=== PATIENT | male | born 1960 | race Caucasian/White ===

== ENCOUNTER 2017-05-04 09:46 | Inpatient (IN) | payer OTHER ==
[~2017-05-04] VITALS: Ht 160 cm; Wt 76.6 kg
[2017-05-04] VITALS (19 sets, daily range): BP systolic 115–147; BP diastolic 79–92; PULSE 70–96; RESP 11–20; Ht 160 cm; Wt 76.6 kg
[~2017-05-04 09:46] MED LIST: CLOP75TA19 PO; DIAZEPAM 5 MG TAB PO SCH; DIPHENHYDRAMINE 50 MG CAP PO SCH; FAMOTIDINE 20 MG TAB PO SCH; FENO160T13 PO; HYDROCORTISONE 2.5%; LEVO88TA PO; LISI10TA2 PO; MELO-210 PO; METO-429 PO; OMEP20TA42 PO; SERT50TA6 PO; SIMV40TA3 PO; SOD CHLORIDE 0.45% 1,000 ML IV SCH
[2017-05-04] MEDS ORDERED: ATOR80TA75 PO (11:00)
[2017-05-04] MEDS ORDERED: LISI20TA11 PO (11:00)
[2017-05-04] MEDS ORDERED: ISOS30TA5 PO (11:00)
[2017-05-04] MEDS ORDERED: LEVO100T82 PO (11:01)
[2017-05-04] MEDS ORDERED: OMEP40CA6 PO (11:02)
[2017-05-04] MEDS ORDERED: OMEG1CAP2 PO (11:02)
[2017-05-04] MEDS ORDERED: GABA300C16 PO (11:03)
[2017-05-04 11:35] LABS: BASOPHILS % 0.6 % (0.0-2.0); EOSINOPHILS # 0.2 10^3/ul (0.0-0.5); EOSINOPHILS % 3.7 % (0.0-7.0); HEMATOCRIT 42.8 % (42.0-52.0); HEMOGLOBIN 13.9 g/dl (14.0-18.0); LYMPHOCYTES # 1.3 10^3/ul (0.8-2.9); LYMPHOCYTES % 27.2 % (15.0-51.0); MEAN CORPUSCULAR HGB CONC 32.5 g/dl (32.0-37.0); MEAN CORPUSCULAR VOLUME 86.1 fl (82.0-101.0); MEAN PLATELET VOLUME 11.2 fl (7.4-10.4); MONOCYTE # 0.3 10^3/ul (0.3-0.9); MONOCYTES % 5.3 % (0.0-11.0); NEUTROPHIL # 3.1 10^3/ul (1.6-7.5); NEUTROPHILS % 62.8 % (39.0-77.0); PLATELET COUNT 201 10^3/UL (140-415); RED BLOOD COUNT 4.97 10^6/ul (4.70-6.10); RED CELL DISTRIBUTION WIDTH 12.9 % (11.5-14.5); WHITE BLOOD COUNT 4.9 10^3/ul (4.8-10.8)
--- NOTE | 2017-05-04 11:51 | RADRPT ---
PROCEDURE: XR Chest. CLINICAL INDICATION: Preoperative TECHNIQUE: Single frontal view of the chest was obtained COMPARISON: CR CHEST 08/20/2012 FINDINGS: The heart and mediastinum are within normal limits. The lungs are clear. There is no pleural effusion or pneumothorax. RPTAT: AA IMPRESSION: No acute disease. .Bryce Chow MD, MD Date Time Electronically viewed and signed by .Bryce Chow MD, on 05/04/2017 11:51 .S/
[2017-05-04 11:53] LABS: INR 1.93; PARTIAL THROMBOPLASTIN TIME 29.7 Sec (25.0-35.0); PROTIME 22.2 Sec (12.2-14.2); PT RATIO 1.7
[2017-05-04 12:02] LABS: CALCIUM 9.2 mg/dl (8.4-10.2); CREATININE 0.99 mg/dl (0.61-1.24); POTASSIUM 4.8 mmol/L (3.5-5.1)
[2017-05-04] MEDS ORDERED: IODIXANOL LOCM 100 ML BTL ONE (13:25)
[2017-05-04] MEDS ORDERED: VERAPAMIL 5 MG INJ ONE (13:25)
[2017-05-04] MEDS ORDERED: MIDAZOLAM 1 MG/ML 2 ML INJ ONE (13:25)
[2017-05-04] MEDS ORDERED: FENTAnyl 50 MCG/ML VIAL ONE (13:25)
[2017-05-04] MEDS ORDERED: NITROGLYCERIN (IC) 100 MCG/ML INJ ONE (13:25)
[2017-05-04] MEDS ORDERED: LIDOCAINE 1% (MDV) 20 ML INJ ONE (13:25)
[2017-05-04 14:26] LABS: INR 2.72; PROTIME 29.2 Sec (12.2-14.2); PT RATIO 2.3
--- NOTE | 2017-05-04 14:28 | SIPON ---
Date/Time of Note Date/Time of Note DATE: 05/04/17 TIME: 14:13 Operative Report Preoperative Diagnosis 1.abnl mpi 2.cad s/p prior ptca/stent Postoperative Diagnosis 1.Obstructive cad Operation/Procedure Performed 1.C 2.LV gram Surgeon see signature line assistant producer Angineh Anesthesia: moderate sedation Estimated blood loss: minimal Transfusion Required none Specimen NA Grafts/Implants none Complications none DAYANARA SHABAZZ May 04, 2017 14:14
[2017-05-04] MEDS ORDERED: ONDANSETRON 4 MG INJ IV PRN ×2 (14:30→15:30)
[2017-05-04] MEDS ORDERED: AL HYDROX/MG HYDROX/SIMETH 30 ML CUP PO PRN (14:30)
[2017-05-04 14:31] LABS: PARTIAL THROMBOPLASTIN TIME 32.5 Sec (25.0-35.0)
--- NOTE | 2017-05-04 15:27 | HP ---
Date/Time of Note Date/Time of Note DATE: 05/04/17 TIME: 15:26 Assessment/Plan VTE Prophylaxis VTE Prophylaxis Intervention: heparin Lines/Catheters IV Catheter Type (from [facility]): Saline Lock Assessment/Plan Assessment/Plan 1. 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 Will order Factor 7 levels, INR, and PT/ PTT mixing study. Depending on results may need anything from Vit K replacement to Novoseven (2 hrs prior to LHC then every 2 hours following for 12 hours) vs Kcentra - No av bleeding appreciated at this time and will continue to monitor - Will hold off on any anticoagulation therapy at this time 2. CAD s/p stenting in 2005 - Patient underwent diagnostic cath this am with Dr. Kim and found multivessel disease - Cardiology on board and appreciate assistance - Will need PCI with stenting. Currently on the schedule for Tuesday - Will eventually need CABG due to multivessel disease 3. Hypothyroidism - TSH ordered - continue home dose of levothyroxine for now 4. Diet - Heart healthy 5. DVT ppx - SCD 6. GI ppx - PPI 7. Code Status - Full code 8. Disposition - Admit to telemetry for close monitoring HPI/ROS Admit Date/Time Admit Date/Time 05/04/17 Hx of Present Illness 56 yo M with PMH CAD and hypothyroidism was sent to Dr. Kim office for preoperative clearance for colonoscopy given past history of CAD with stenting in 2005. Patient was seen this am and INR was 1.[address] Kim proceeded with diagnostic catheterization. Patient was found to have diffuse multivessel disease with needs for CABG in the future. Patients repeat lab work showed increase of INR to 2.7 and PCI was aborted. Official research laboratory specialist was used to communicate with patient in [facility], however, patient was unclear about his past history. He was aware that he has an abnormality of his blood but unsure what kind. After discussion with Dr. Kim, patient has factor VII deficiency and was supposed to have CABG in the past but due to coagulopathy was never performed. Patient is currently on the schedule for left heart catheterization if INR improves with plans for stenting. Patient denies any chest pain, palpitations, shortness of breath, nausea, vomiting, or abdominal issues. ROS All 12 systems were reviewed and pertinent positives as per HPI. All others reviewed and are negative. Constitutional: no complaints, No fatigue, No febrile, No nausea Eyes: no complaints ENT: no complaints Respiratory: No cough, No shortness of breath, No sputum, No wheezing Cardiovascular: No chest pain, No edema, No lightheadedness, No orthopenea, No palpitations Gastrointestinal: No blood, No constipation, No diarrhea, No nausea, No passing stool Genitourinary: no complaints Musculoskeletal: no complaints Skin: no complaints Neurologic: no complaints Endocrine: no complaints Lymphatic: no complaints Psychological: no complaints Immunologic: no complaints PMH/Family/Social Past Medical History Medical History: coronary artery disease, hypothyroid Past Surgical History Past Surgical Hx: no surgical history Family History Significant Family History: no pertinent family hx Social History Alcohol Use: none Smoking Status: Former smoker Drug Use: none Exam/Review of Systems Vital Signs Vitals Vital Signs Date Time Temp Pulse Resp B/P Pulse Ox O2 Delivery O2 Flow Rate FiO2 05/04/17 11:37 98.5 89 20 134/84 99 Room Air Exam Constitutional: alert, oriented, well developed, No distress Psych: nl mood/affect, no complaints Head: atraumatic, normocephalic Eyes: EOMI, PERRL, nl sclera ENMT: nl external ears & nose, nl lips & teeth Neck: non-tender, supple Respiratory: clear to auscultation, No crackles/rales, No diminished breath sounds Cardiovascular: regular rate and rhythm, No murmurs/extra sounds, No systolic murmur Gastrointestinal: bowel sounds, non-tender, soft, No distended, No rebound or guarding Musculoskeletal: nl extremities to inspection Extremities: normal pulses, No clubbing, No cyanosis, No edema, No pitting pedal edema Neurological: MAGAZINE KEEPER II-XII intact, nl mental status, nl speech Skin: nl turgor Lymph: nl lymph nodes Labs Result Diagram: 05/04/17 1115 05/04/17 1115 Medications Medications Current Medications Sodium Chloride (1/2 NS) 1,000 ml @ 20 mls/hr Q24H IV ; Start 05/04/17 at 07: 00; Stop 05/06/17 at 08:59 Acetaminophen (Tylenol Tab) 650 mg Q4H PRN PO NON-CARDIAC PAIN LEVEL (1-3); Start 05/04/17 at 14:30 Al Hydrox/Mg Hydrox/Simethicone (Mag-Al Plus) 30 ml Q4H PRN PO GASTROINTESTINAL UPSET; Start 05/04/17 at 14:30 Ondansetron HCl (Zofran Inj) 4 mg Q4H PRN IV NAUSEA AND/OR VOMITING; Start at 14:30 Procedures Procedures Diagnostic cardiac catheterization TIERRA MURILLO MD May 04, 2017 15:27
[2017-05-04] MEDS ORDERED: morphine 2 MG INJ IV PRN (15:30)
[2017-05-04] MEDS ORDERED: NACL 0.9% 3 ML SYG IV SCH (15:30)
[2017-05-04] MEDS ORDERED: ACETAMINOPHEN 325 MG TAB PO PRN (15:30)
[2017-05-04] MEDS ORDERED: MAGNESIUM HYDROXIDE 30ML CUP PO PRN (15:30)
[2017-05-04] MEDS ORDERED: NITROGLYCERIN (SL) 0.4 MG TAB SL PRN (15:30)
[2017-05-04] MEDS ORDERED: DOCUSATE SODIUM 100 MG CAP PO PRN (15:30)
[2017-05-04 17:44] LABS: ALBUMIN 3.8 g/dl (3.3-4.9); BILIRUBIN,INDIRECT 0.6 mg/dl (0-1.1); BILIRUBIN,TOTAL 0.6 mg/dl (0.2-1.3); TOTAL PROTEIN 6.7 g/dl (6.1-8.1)
[2017-05-04] MEDS: FISH OIL 1,000 MG CAP PO SCH (21:12)
[2017-05-04] MEDS: GABAPENTIN 300 MG CAP PO SCH (21:13)
[2017-05-04] MEDS: ATORVASTATIN 80 MG TAB PO SCH (21:13)
[2017-05-04] MEDS: ACETAMINOPHEN 325 MG TAB PO PRN (21:16)
[2017-05-04 21:24] LABS: PROTIME 23.3 Sec (12.2-14.2)
[2017-05-04 21:25] LABS: 50/50 PROTIME 1 HOUR 13.5 Sec; 50/50 PROTIME CONCLUSION CORRECTED; 50/50 PT IMMED 13.9 Sec
[2017-05-04 21:29] LABS: 50/50 PROTIME 2 HOUR 14.3 Sec
[2017-05-05] VITALS (12 sets, daily range): BP systolic 91–137; BP diastolic 50–77; PULSE 66–80; RESP 18–77
--- NOTE | 2017-05-05 02:23 | CARRPT ---
DATE OF PROCEDURE: 05/04/2017 TYPE OF PROCEDURE: 1. Left heart catheterization. 2. Coronary angiography. 3. Left ventriculogram. ATTENDING PHYSICIAN: Dr. Dayanara Kim INDICATION: Dyspnea on exertion, chest pain, positive stress test findings in a preoperative patien t. TYPE OF ANESTHESIA: Conscious and local. BRIEF HISTORY AND HOSPITAL COURSE: Mr. Malloy is a 56-year-old male with history of hypertension, dyslipidemia and coagulopathy, who presented preoperatively for colonoscopy and was found to have p ositive stress test findings with associated symptoms of chest pain and shortness of breath. The pa mil has been referred today in order to assess for the possibility of significant obstructive xiomara nary artery disease lending to symptoms of chest pain, shortness of breath and positive stress test findings. DESCRIPTION OF PROCEDURE: After informed consent was obtained, the patient was brought to [facility] cardiac catheterization lab where his right radial artery was prepped and draped in usual sterile fashion. Lidocaine 2% was infiltrated in right radial area in order to receive ad equate local anesthesia. Using the modified Seldinger technique, the radial artery was cannulated a nd a 6-Thai arterial sheath was placed. A 6-Thai JL3 catheter was used to cannulate the left ma in coronary ostium. With contrast injection, multiple views of the left coronary arterial system we re obtained. JL3 was removed over a guidewire and a JR4 was used to cannulate the right coronary ar terial ostium. With contrast injection, multiple views of the right coronary arterial system obtain ed. JR4 was removed over a guidewire and a 6-Thai pigtail was passed into aorta, across the aorti c valve into left ventricle. Left end-diastolic pressure was measured. A power injector with 20 mL of contrast was undertaken. The pigtail catheter was then pulled back across the aortic valve to a ssess for significant gradient, which there was not and removed. Subsequently, the patient's sheath was removed and TR band was applied. This completed procedure. No noted complications. FINDINGS: CORONARY ANGIOGRAPHY: LAD proximally is a 3 mm vessel and has a 70% proximal LAD stenosis just begi nning at the diagonal. The patient's diagonal has a stent in it which is subtotally occluded and pedroza s JUAN CARLOS 1 to 2 flow throughout it. The remainder of the LAD is free of significant focal stenoses un til it gets down to the apex, and at the apex there are tandem stenoses of approximately 90%. The c ircumflex proximally is a 3 mm vessel and the circumflex continuation AV groove is free of significa nt focal stenoses, it bifurcates with an OM. The OM has a long stent in it with in-stent restenosis felt to have approximately 70% to 80% in its proximal portion and just before the takeoff. The pat ient's right coronary artery proximally is a 3 mm vessel and shortly after its takeoff, becomes 100% occluded and can be seen to faintly fill distally from [id number] collateral circulation, as we ll as [id number] collateral circulation, the distal right coronary artery bifurcation. LEFT VENTRICULOGRAM: Revealed a left ventricular ejection fraction of 55% to 60%. Left ventricular end diastolic pressure of 14 pre-LV gram, 16 post-LV gram. No significant aortic stenosis by gradi ent. TOTAL FLUOROSCOPY TIME: 12.5 minutes. TOTAL CONTRAST: 60 mL. IMPRESSION: 1. Multivessel obstructive coronary artery disease involving high-grade subtotal occlusions of the patient's diagonal and high-grade stenoses within the patient's left anterior descending and obtuse marginal, as well occluded right coronary, the collateral flow. 2. Preserved left ventricular systolic function. 3. No significant aortic stenosis by gradient. 4. Coagulopathy. RECOMMENDATIONS: 1. At this time, patient has coagulopathy which will need to be corrected before any type of surgic al or percutaneous coronary intervention can be undertaken. 2. Given the patient's high-grade stenoses and subtotal occlusion, the patient will be admitted to the telemetry floor for ongoing observation and evaluation. 3. Patient should be considered for coronary artery bypass graft surgery versus multivessel PTCA an d stent placement. Dictated By: DAYANARA GONSALEZ/LIANNE Conf#: [id number] DID#: [id number] CC: TIERRA MURILLO; DEMETRA BYRD MD;*End*
[2017-05-05] MEDS: PANTOPRAZOLE (EC) 40 MG TAB PO SCH (06:00)
[2017-05-05] MEDS: LEVOTHYROXINE 100 MCG TAB PO SCH (07:15)
[2017-05-05 07:46] LABS: BASOPHILS % 0.6 % (0.0-2.0); EOSINOPHILS # 0.3 10^3/ul (0.0-0.5); EOSINOPHILS % 3.7 % (0.0-7.0); HEMATOCRIT 42.8 % (42.0-52.0); HEMOGLOBIN 13.6 g/dl (14.0-18.0); LYMPHOCYTES # 1.8 10^3/ul (0.8-2.9); LYMPHOCYTES % 25.4 % (15.0-51.0); MEAN CORPUSCULAR HEMOGLOBIN 27.8 pg (29.0-33.0); MEAN CORPUSCULAR HGB CONC 31.8 g/dl (32.0-37.0); MEAN CORPUSCULAR VOLUME 87.3 fl (82.0-101.0); MEAN PLATELET VOLUME 11.2 fl (7.4-10.4); MONOCYTE # 0.5 10^3/ul (0.3-0.9); NEUTROPHIL # 4.5 10^3/ul (1.6-7.5); PLATELET COUNT 205 10^3/UL (140-415); RED CELL DISTRIBUTION WIDTH 13.3 % (11.5-14.5); WHITE BLOOD COUNT 7.1 10^3/ul (4.8-10.8)
[2017-05-05 08:09] LABS: INR 1.99; PROTIME 22.8 Sec (12.2-14.2); PT RATIO 1.8
[2017-05-05 08:22] LABS: ALBUMIN 3.7 g/dl (3.3-4.9); ALBUMIN/GLOBULIN RATIO 1.12; BILIRUBIN,INDIRECT 0.6 mg/dl (0-1.1); BILIRUBIN,TOTAL 0.6 mg/dl (0.2-1.3); CALCIUM 9.5 mg/dl (8.4-10.2); CREATININE 1.01 mg/dl (0.61-1.24); MAGNESIUM 1.9 mg/dl (1.7-2.5); POTASSIUM 4.9 mmol/L (3.5-5.1)
[2017-05-05] MEDS: FISH OIL 1,000 MG CAP PO SCH ×2 (08:22→21:55)
[2017-05-05] MEDS: ISOSORBIDE MONONITRATE(SR)30 MG TAB PO SCH (08:24)
[2017-05-05] MEDS: GABAPENTIN 300 MG CAP PO SCH ×2 (08:24→21:55)
[2017-05-05] MEDS: CLOPIDOGREL 75 MG TAB PO SCH (08:25)
[2017-05-05 08:42] LABS: THYROID STIMULATING HORMONE 2.87 MIU/L (0.465-4.680)
[2017-05-05] MEDS ORDERED: METOPROLOL 50 MG TAB PO SCH (09:00)
[2017-05-05] MEDS ORDERED: LISINOPRIL 20 MG TAB PO SCH (09:00)
[2017-05-05] MEDS ORDERED: NON-FORMULARY/PATIENT OWN MED (Omeprazole* 40 MG) PO SCH (09:00)
--- NOTE | 2017-05-05 13:30 | PN ---
Date/Time of Note Date/Time of Note DATE: 05/05/17 TIME: 13:25 Assessment/Plan VTE Prophylaxis VTE Prophylaxis Intervention: contraindicated Lines/Catheters IV Catheter Type (from Nrs): Saline Lock Urinary Cath still in place: No Assessment/Plan Assessment/Plan 1. 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 CAD s/p stenting in 2005 - Found to have multivessel disease during diagnostic catheterization yesterday - Cardiology on board and appreciate assistance - Will need PCI with stenting. Currently on the schedule for Tuesday - Will eventually need CABG due to multivessel disease 3. Hypothyroidism - TSH within nl limits - continue home dose of levothyroxine for now 4. Disposition - Cardiac cath planned for tmrw am. Keep NPO after midnight Subjective 24 Hr Interval Summary Free Text/Dictation Patient doing well and denies any new complaints or acute overnight events. Family at bedside and all questions were answered. Plans for cardiac cath in the am. Exam/Review of Systems Vital Signs Vitals Vital Signs Date Time Temp Pulse Resp B/P Pulse Ox O2 Delivery O2 Flow Rate FiO2 05/05/17 12:25 67 05/05/17 11:56 98.1 18 91/50 97 05/04/17 18:58 Room Air Intake and Output 05/04/17 05/04/17 05/05/17 15:00 23:00 07:00 Intake Total 130 ml 280 ml 120 ml Output Total 500 ml Balance 130 ml -220 ml 120 ml Exam Constitutional: alert, oriented, well developed, No distress Head: atraumatic, normocephalic Eyes: EOMI, PERRL, nl sclera Neck: non-tender, supple Respiratory: clear to auscultation, No crackles/rales, No diminished breath sounds Cardiovascular: regular rate and rhythm, No murmurs/extra sounds, No systolic murmur Gastrointestinal: bowel sounds, non-tender, soft, No distended, No rebound or guarding Musculoskeletal: nl extremities to inspection Extremities: normal pulses, No clubbing, No cyanosis, No edema, No pitting pedal edema Neurological: LINER CHECKER II-XII intact, nl mental status, nl speech Skin: nl turgor Results Result Diagram: 05/05/17 0620 05/05/17 0620 Results 24 hrs Laboratory Tests Test 05/04/17 13:55 05/04/17 16:26 05/04/17 17:59 05/05/17 06:20 Prothrombin Time 29.2 #H 23.3 #H 22.8 H Prothrombin Time Ratio 2.3 1.8 INR International Normalized Ratio 2.72 1.99 Activated Partial Thromboplast Time 32.5 Total Bilirubin 0.6 0.6 Direct Bilirubin 0.00 0.00 Indirect Bilirubin 0.6 0.6 Aspartate Amino Transf (AST/SGOT) 25 32 Alanine Aminotransferase (ALT/SGPT) 64 62 Alkaline Phosphatase 68 70 Total Protein 6.7 7.0 Albumin 3.8 3.7 Mix PT Normal Plasma 1 Hour 13.5 Mix PT Normal Plasma 2 Hour 14.3 Mix PT Patient Plasma Immediate 13.9 PT Mixing Studies Interpretation CORRECTED White Blood Count 7.1 # Red Blood Count 4.90 Hemoglobin 13.6 L Hematocrit 42.8 Mean Corpuscular Volume 87.3 Mean Corpuscular Hemoglobin 27.8 L Mean Corpuscular Hemoglobin Concent 31.8 L Red Cell Distribution Width 13.3 Platelet Count 205 Mean Platelet Volume 11.2 H Neutrophils % 63.0 Lymphocytes % 25.4 Monocytes % 7.0 Eosinophils % 3.7 Basophils % 0.6 Nucleated Red Blood Cells % 0.0 Neutrophils # 4.5 Lymphocytes # 1.8 Monocytes # 0.5 Eosinophils # 0.3 Basophils # 0.0 Nucleated Red Blood Cells # 0.0 Sodium Level 142 Potassium Level 4.9 Chloride Level 106 Carbon Dioxide Level 29 Anion Gap 12 Blood Urea Nitrogen 20 Creatinine 1.01 Glucose Level 93 Hemoglobin A1c 5.4 Calcium Level 9.5 Magnesium Level 1.9 Globulin 3.30 H Albumin/Globulin Ratio 1.12 Thyroid Stimulating Hormone (TSH) 2.870 Medications Medications Current Medications Acetaminophen (Tylenol Tab) 650 mg Q4H PRN PO NON-CARDIAC PAIN LEVEL (1-3) Last administered on 05/04/17t 21:16; Admin Dose 650 MG; Start 05/04/17 at 14: 30 Al Hydrox/Mg Hydrox/Simethicone (Mag-Al Plus) 30 ml Q4H PRN PO GASTROINTESTINAL UPSET; Start 05/04/17 at 14:30 Ondansetron HCl (Zofran Inj) 4 mg Q4H PRN IV NAUSEA AND/OR VOMITING; Start at 14:30 Atorvastatin Calcium (Lipitor) 80 mg QHS PO Last administered on 05/04/17 21: 13; Admin Dose 80 MG; Start 05/04/17 at 21:00 Clopidogrel Bisulfate (plaVIX) 75 mg DAILY PO Last administered on 05/05/17 08:25; Admin Dose 75 MG; Start 05/05/17 at 09:00 Gabapentin (Neurontin) 300 mg BID PO Last administered on 05/05/17 08:24; Admin Dose 300 MG; Start 05/04/17 at 21:00 Isosorbide Mononitrate (Imdur) 30 mg DAILY PO Last administered on 05/05/17 08:24; Admin Dose 30 MG; Start 05/05/17 at 09:00 Lisinopril (Zestril) 20 mg DAILY PO Last administered on 05/05/17 08:25; Admin Dose 20 MG; Start 05/05/17 at 09:00 Metoprolol Tartrate (Lopressor) 50 mg DAILY PO Last administered on 05/05/17 08:24; Admin Dose 50 MG; Start 05/05/17 at 09:00 Fish Oil (Fish Oil) 2,000 mg BID PO Last administered on 05/05/17 08:22; Admin Dose 2,000 MG; Start 05/04/17 at 21:00 Ondansetron HCl (Zofran Inj) 4 mg Q6H PRN IV NAUSEA AND/OR VOMITING; Start at 15:30 Nitroglycerin (Nitroglycerin (Sl Tab) 0.4 Mg) 1 tab Q5M PRN SL CHEST PAIN; Start 05/04/17 at 15:30 Morphine Sulfate (morphine) 2 mg Q4H PRN IV PAIN LEVEL 7-10; Start 05/04/17 at 15:30 Docusate Sodium (Colace) 100 mg Q12H PRN PO CONSTIPATION; Start 05/04/17 at 15 :30 Magnesium Hydroxide (Milk Of Mag) 30 ml DAILY PRN PO CONSTIPATION; Start 05/04 at 15:30 Pantoprazole (Protonix Tab) 40 mg DAILY@06 PO Last administered on 05/05/17t 06:00; Admin Dose 40 MG; Start 05/05/17 at 06:00 TIERRA MURILLO MD May 05, 2017 13:30
--- NOTE | 2017-05-05 13:40 | CONS ---
Date/Time of Note Date/Time of Note DATE: 05/05/17 TIME: 13:33 Assessment/Plan Assessment/Plan Chief Complaint/Hosp Course IMP: 1.cad-mutivessel obstructive by [facility] 05/04 2.UNstable angina-secondary to cad as above 3. Coagulopathy-factor V11 def?: 4.HTN-borderline hotn today after receiving baseline anti-hypertensives 5.HL Recc: -Tele -serial ecg's -Change BB to BID dosing -Continue zestril with slight decrease -Greatly appreciate Heme/Dr Puentes input with plans to give coagulation factor 1 hour prior to surgery or cath with correction already shown by mixing studies -CT surgical eval today for possible CABG due to diffuse nature of cad versus multivessel PTCA(If done will likley be tomorrow AM 10:30) Problems: Consultation Date/Type/Reason Admit Date/Time May 04, 2017 at 15:44 Initial Consult Date 05/04/2017 Type of Consultation: Cardiology Reason for Consultation cad/angina Referring Provider: TIERRA MURILLO MD Exam/Review of Systems Vital Signs Vitals Vital Signs Date Time Temp Pulse Resp B/P Pulse Ox O2 Delivery O2 Flow Rate FiO2 05/05/17 12:25 67 05/05/17 11:56 98.1 18 91/50 97 05/04/17 18:58 Room Air Intake and Output 05/04/17 05/04/17 05/05/17 15:00 23:00 07:00 Intake Total 130 ml 280 ml 120 ml Output Total 500 ml Balance 130 ml -220 ml 120 ml Exam Review of Systems: CONSTITUTIONAL: No fevers, chills. PULMONARY: No sob CARDIOVASCULAR: No chest pain/palpitations GASTROINTESTINAL: No nausea/vomiting. GENITOURINARY: No hematuria/dysuria. MUSCULOSKELETAL: No myagias/arthalgias. PSYCHIATRIC: The patient denies depression. NEUROLOGIC: No weakness Constitutional: alert, oriented Psych: no complaints Head: normocephalic ENMT: mucosa pink and moist Neck: jvd (9 cm water), supple Respiratory: clear to auscultation Cardiovascular: regular rate and rhythm Gastrointestinal: non-tender, soft Musculoskeletal: muscle tone (normal) Extremities: edema (none) Neurological: other (No focal deficits) Results Result Diagram: 05/05/17 0620 05/05/17 0620 Results 24 hrs Laboratory Tests Test 05/04/17 13:55 05/04/17 16:26 05/04/17 17:59 05/05/17 06:20 Prothrombin Time 29.2 #H 23.3 #H 22.8 H Prothrombin Time Ratio 2.3 1.8 INR International Normalized Ratio 2.72 1.99 Activated Partial Thromboplast Time 32.5 Total Bilirubin 0.6 0.6 Direct Bilirubin 0.00 0.00 Indirect Bilirubin 0.6 0.6 Aspartate Amino Transf (AST/SGOT) 25 32 Alanine Aminotransferase (ALT/SGPT) 64 62 Alkaline Phosphatase 68 70 Total Protein 6.7 7.0 Albumin 3.8 3.7 Mix PT Normal Plasma 1 Hour 13.5 Mix PT Normal Plasma 2 Hour 14.3 Mix PT Patient Plasma Immediate 13.9 PT Mixing Studies Interpretation CORRECTED White Blood Count 7.1 # Red Blood Count 4.90 Hemoglobin 13.6 L Hematocrit 42.8 Mean Corpuscular Volume 87.3 Mean Corpuscular Hemoglobin 27.8 L Mean Corpuscular Hemoglobin Concent 31.8 L Red Cell Distribution Width 13.3 Platelet Count 205 Mean Platelet Volume 11.2 H Neutrophils % 63.0 Lymphocytes % 25.4 Monocytes % 7.0 Eosinophils % 3.7 Basophils % 0.6 Nucleated Red Blood Cells % 0.0 Neutrophils # 4.5 Lymphocytes # 1.8 Monocytes # 0.5 Eosinophils # 0.3 Basophils # 0.0 Nucleated Red Blood Cells # 0.0 Sodium Level 142 Potassium Level 4.9 Chloride Level 106 Carbon Dioxide Level 29 Anion Gap 12 Blood Urea Nitrogen 20 Creatinine 1.01 Glucose Level 93 Hemoglobin A1c 5.4 Calcium Level 9.5 Magnesium Level 1.9 Globulin 3.30 H Albumin/Globulin Ratio 1.12 Thyroid Stimulating Hormone (TSH) 2.870 Medications Medications Current Medications Acetaminophen (Tylenol Tab) 650 mg Q4H PRN PO NON-CARDIAC PAIN LEVEL (1-3) Last administered on 05/04/17t 21:16; Admin Dose 650 MG; Start 05/04/17 at 14: 30 Al Hydrox/Mg Hydrox/Simethicone (Mag-Al Plus) 30 ml Q4H PRN PO GASTROINTESTINAL UPSET; Start 05/04/17 at 14:30 Ondansetron HCl (Zofran Inj) 4 mg Q4H PRN IV NAUSEA AND/OR VOMITING; Start at 14:30 Atorvastatin Calcium (Lipitor) 80 mg QHS PO Last administered on 05/04/17 21: 13; Admin Dose 80 MG; Start 05/04/17 at 21:00 Clopidogrel Bisulfate (plaVIX) 75 mg DAILY PO Last administered on 05/05/17 08:25; Admin Dose 75 MG; Start 05/05/17 at 09:00 Gabapentin (Neurontin) 300 mg BID PO Last administered on 05/05/17 08:24; Admin Dose 300 MG; Start 05/04/17 at 21:00 Isosorbide Mononitrate (Imdur) 30 mg DAILY PO Last administered on 05/05/17 08:24; Admin Dose 30 MG; Start 05/05/17 at 09:00 Lisinopril (Zestril) 20 mg DAILY PO Last administered on 05/05/17 08:25; Admin Dose 20 MG; Start 05/05/17 at 09:00 Metoprolol Tartrate (Lopressor) 50 mg DAILY PO Last administered on 05/05/17 08:24; Admin Dose 50 MG; Start 05/05/17 at 09:00 Fish Oil (Fish Oil) 2,000 mg BID PO Last administered on 05/05/17 08:22; Admin Dose 2,000 MG; Start 05/04/17 at 21:00 Ondansetron HCl (Zofran Inj) 4 mg Q6H PRN IV NAUSEA AND/OR VOMITING; Start at 15:30 Nitroglycerin (Nitroglycerin (Sl Tab) 0.4 Mg) 1 tab Q5M PRN SL CHEST PAIN; Start 05/04/17 at 15:30 Morphine Sulfate (morphine) 2 mg Q4H PRN IV PAIN LEVEL 7-10; Start 05/04/17 at 15:30 Docusate Sodium (Colace) 100 mg Q12H PRN PO CONSTIPATION; Start 05/04/17 at 15 :30 Magnesium Hydroxide (Milk Of Mag) 30 ml DAILY PRN PO CONSTIPATION; Start 05/04 at 15:30 Pantoprazole (Protonix Tab) 40 mg DAILY@06 PO Last administered on 05/05/17 06:00; Admin Dose 40 MG; Start 05/05/17 at 06:00 DAYANARA SHABAZZ May 05, 2017 13:40
--- NOTE | 2017-05-05 18:30 | RADRPT ---
Vent Rate: 79 bpm RR Interval: 0 msec AL Interval: 152 msec QRS Duration: 90 msec QT Interval: 368 msec QTC Interval: 421 msec P-R-T [place]: 59 - 58 - 52 degrees Normal sinus rhythm Normal ECG Electronically Signed By: Bar Kim [id number]
[2017-05-05] MEDS: METOPROLOL 25 MG TAB PO SCH (20:39)
[2017-05-05] MEDS: ATORVASTATIN 80 MG TAB PO SCH (21:55)
--- NOTE | 2017-05-05 22:03 | CONS ---
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 -if there is in fact a deficiency of factor VII, pt can be given a dose of parvin 7. dose would be 15mcg/kg q 4 hours, first dose to be given immediately before surgery and to continue for 24 hours. -will attempt to speak with Dr. Hunter regarding patient's history of coagulopathy #Multivessel disease CAD -will defer to cardiology as to whether patient will need multi vessel stent placement vs CABG -continue Beta Blockade #HTN -BP ok -continue strict blood pressure control per cardiology Problems: Consultation Date/Type/Reason Admit Date/Time May 04, 2017 at 15:44 Date of Consultation: May 05, 2017 Type of Consultation: Hematology Reason for Consultation Factor 7 deficiency Referring Provider: DAYANARA KIM Hx of Present Illness 56 yo M with multiple medical problems including coronary artery disease with history of stenting in 2005. Pt has since undergone diagnostic cardiac catheterization and was found to have diffuse multivessel disease with needs for CABG in the future. During his workup patient was found to have an INR to 2.7 and PCI was aborted. Upon further history taking pt states he has a After discussion with Dr. Kim, patient has factor VII deficiency and is currently being followed by a pumping plant operator Dr. Hunter in [place]. Given his multivessel disease, pt will need open heart surgery vs multi vessel stent placement. We have been called to correct the coagulopathy prior to the surgery. Eyes: no complaints ENT: no complaints Respiratory: No cough, No shortness of breath, No sputum, No wheezing Cardiovascular: No chest pain, No edema, No lightheadedness, No orthopenea, No palpitations Gastrointestinal: No blood, No constipation, No diarrhea, No nausea, No passing stool Genitourinary: no complaints Musculoskeletal: no complaints Skin: no complaints Neurologic: no complaints Lymphatic: no complaints Psychological: no complaints Immunologic: no complaints Past Medical History Medical History: coronary artery disease, hypothyroid Past Surgical History Past Surgical Hx: no surgical history Family History Significant Family History: no pertinent family hx Social History Alcohol Use: none Smoking Status: Former smoker Drug Use: none Exam/Review of Systems Vital Signs Vitals Vital Signs Date Time Temp Pulse Resp B/P Pulse Ox O2 Delivery O2 Flow Rate FiO2 05/05/17 20:38 79 05/05/17 20:00 98.2 77 93/52 95 05/04/17 18:58 Room Air Intake and Output 05/04/17 05/04/17 05/05/17 15:00 23:00 07:00 Intake Total 130 ml 280 ml 120 ml Output Total 500 ml Balance 130 ml -220 ml 120 ml Exam Constitutional: alert, oriented Psych: no complaints Head: normocephalic Eyes: nl conjunctiva ENMT: nl external ears & nose Neck: non-tender, supple Respiratory: clear to auscultation Cardiovascular: regular rate and rhythm Gastrointestinal: soft Musculoskeletal: nl extremities to inspection, nl gait and stance Extremities: normal pulses Results Result Diagram: 05/05/17 0620 05/05/17 0620 Results 24 hrs Laboratory Tests Test 05/05/17 06:20 White Blood Count 7.1 # Red Blood Count 4.90 Hemoglobin 13.6 L Hematocrit 42.8 Mean Corpuscular Volume 87.3 Mean Corpuscular Hemoglobin 27.8 L Mean Corpuscular Hemoglobin Concent 31.8 L Red Cell Distribution Width 13.3 Platelet Count 205 Mean Platelet Volume 11.2 H Neutrophils % 63.0 Lymphocytes % 25.4 Monocytes % 7.0 Eosinophils % 3.7 Basophils % 0.6 Nucleated Red Blood Cells % 0.0 Neutrophils # 4.5 Lymphocytes # 1.8 Monocytes # 0.5 Eosinophils # 0.3 Basophils # 0.0 Nucleated Red Blood Cells # 0.0 Prothrombin Time 22.8 H Prothrombin Time Ratio 1.8 INR International Normalized Ratio 1.99 Sodium Level 142 Potassium Level 4.9 Chloride Level 106 Carbon Dioxide Level 29 Anion Gap 12 Blood Urea Nitrogen 20 Creatinine 1.01 Glucose Level 93 Hemoglobin A1c 5.4 Calcium Level 9.5 Magnesium Level 1.9 Total Bilirubin 0.6 Direct Bilirubin 0.00 Indirect Bilirubin 0.6 Aspartate Amino Transf (AST/SGOT) 32 Alanine Aminotransferase (ALT/SGPT) 62 Alkaline Phosphatase 70 Total Protein 7.0 Albumin 3.7 Globulin 3.30 H Albumin/Globulin Ratio 1.12 Thyroid Stimulating Hormone (TSH) 2.870 Medications Medications Current Medications Acetaminophen (Tylenol Tab) 650 mg Q4H PRN PO NON-CARDIAC PAIN LEVEL (1-3) Last administered on 05/04/17 21:16; Admin Dose 650 MG; Start 05/04/17 at 14: 30 Al Hydrox/Mg Hydrox/Simethicone (Mag-Al Plus) 30 ml Q4H PRN PO GASTROINTESTINAL UPSET; Start 05/04/17 at 14:30 Ondansetron HCl (Zofran Inj) 4 mg Q4H PRN IV NAUSEA AND/OR VOMITING; Start at 14:30 Atorvastatin Calcium (Lipitor) 80 mg QHS PO Last administered on 05/04/17 21: 13; Admin Dose 80 MG; Start 05/04/17 at 21:00 Clopidogrel Bisulfate (plaVIX) 75 mg DAILY PO Last administered on 05/05/17 08:25; Admin Dose 75 MG; Start 05/05/17 at 09:00 Gabapentin (Neurontin) 300 mg BID PO Last administered on 05/05/17 08:24; Admin Dose 300 MG; Start 05/04/17 at 21:00 Isosorbide Mononitrate (Imdur) 30 mg DAILY PO Last administered on 05/05/17 08:24; Admin Dose 30 MG; Start 05/05/17 at 09:00 Fish Oil (Fish Oil) 2,000 mg BID PO Last administered on 05/05/17 08:22; Admin Dose 2,000 MG; Start 05/04/17 at 21:00 Ondansetron HCl (Zofran Inj) 4 mg Q6H PRN IV NAUSEA AND/OR VOMITING; Start at 15:30 Nitroglycerin (Nitroglycerin (Sl Tab) 0.4 Mg) 1 tab Q5M PRN SL CHEST PAIN; Start 05/04/17 at 15:30 Morphine Sulfate (morphine) 2 mg Q4H PRN IV PAIN LEVEL 7-10; Start 05/04/17 at 15:30 Docusate Sodium (Colace) 100 mg Q12H PRN PO CONSTIPATION; Start 05/04/17 at 15 :30 Magnesium Hydroxide (Milk Of Mag) 30 ml DAILY PRN PO CONSTIPATION; Start 05/04 at 15:30 Pantoprazole (Protonix Tab) 40 mg DAILY@06 PO Last administered on 05/05/17 06:00; Admin Dose 40 MG; Start 05/05/17 at 06:00 Lisinopril (Zestril) 10 mg DAILY PO ; Start 05/06/17 at 09:00 Metoprolol Tartrate (Lopressor) 25 mg BID PO ; Start 05/05/17 at 21:00 KERRY WILLS M.D. May 05, 2017 21:51
[2017-05-06] VITALS (13 sets, daily range): BP systolic 95–127; BP diastolic 55–81; PULSE 68–85; RESP 18–19
[2017-05-06] MEDS: PANTOPRAZOLE (EC) 40 MG TAB PO SCH (06:00)
[2017-05-06 06:16] LABS: BASOPHILS % 0.3 % (0.0-2.0); EOSINOPHILS # 0.3 10^3/ul (0.0-0.5); EOSINOPHILS % 3.7 % (0.0-7.0); HEMATOCRIT 38.1 % (42.0-52.0); HEMOGLOBIN 12.6 g/dl (14.0-18.0); LYMPHOCYTES # 1.6 10^3/ul (0.8-2.9); LYMPHOCYTES % 22.9 % (15.0-51.0); MEAN CORPUSCULAR HEMOGLOBIN 28.7 pg (29.0-33.0); MEAN CORPUSCULAR HGB CONC 33.1 g/dl (32.0-37.0); MEAN CORPUSCULAR VOLUME 86.8 fl (82.0-101.0); MONOCYTE # 0.5 10^3/ul (0.3-0.9); MONOCYTES % 6.8 % (0.0-11.0); NEUTROPHIL # 4.7 10^3/ul (1.6-7.5); NEUTROPHILS % 65.9 % (39.0-77.0); PLATELET COUNT 197 10^3/UL (140-415); RED BLOOD COUNT 4.39 10^6/ul (4.70-6.10); WHITE BLOOD COUNT 7.1 10^3/ul (4.8-10.8)
[2017-05-06 06:45] LABS: INR 2.11; PROTIME 23.9 Sec (12.2-14.2); PT RATIO 1.9
[2017-05-06] MEDS: LEVOTHYROXINE 100 MCG TAB PO SCH ×2 (07:00→10:43)
[2017-05-06 07:10] LABS: ALBUMIN 3.5 g/dl (3.3-4.9); CALCIUM 9.1 mg/dl (8.4-10.2); CREATININE 0.99 mg/dl (0.61-1.24); MAGNESIUM 1.8 mg/dl (1.7-2.5); PHOSPHORUS 3.4 mg/dl (2.5-4.9); POTASSIUM 4.3 mmol/L (3.5-5.1)
[2017-05-06] MEDS: FISH OIL 1,000 MG CAP PO SCH ×3 (09:00→21:00)
[2017-05-06] MEDS: GABAPENTIN 300 MG CAP PO SCH ×3 (09:00→21:00)
[2017-05-06] MEDS: LISINOPRIL 10 MG TAB PO SCH (09:00)
[2017-05-06] MEDS: CLOPIDOGREL 75 MG TAB PO SCH ×2 (09:00→10:46)
[2017-05-06] MEDS: ISOSORBIDE MONONITRATE(SR)30 MG TAB PO SCH ×2 (09:00→10:46)
[2017-05-06] MEDS: METOPROLOL 25 MG TAB PO SCH ×3 (09:00→21:00)
--- NOTE | 2017-05-06 11:06 | PN ---
Date/Time of Note Date/Time of Note DATE: 05/06/17 TIME: 11:01 Assessment/Plan VTE Prophylaxis VTE Prophylaxis Intervention: contraindicated Lines/Catheters IV [facility] Urinary Cath still in place: No Assessment/Plan Assessment/Plan 1. 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 Undergoing evaluation to confirm his factor deficiency and if Factor 7 deficiency in fact present will need parvin 7. dose would be 15mcg/kg q 4 hours, first dose to be given immediately before surgery and to continue for 24 hours. - PTT Mixing study ordered yesterday which showed correction - No av bleeding appreciated at this time and will continue to monitor 2. CAD s/p stenting in 2005 - Found to have multivessel disease during diagnostic catheterization on 05/04 - Cardiology on board and recommendations appreciated. Plan is to see if patient is a surgical candidate for CABG and if not will undergo LHC on Tuesday. Awaiting recommendations from CT surgery. 3. Hypothyroidism - TSH within nl limits - continue home dose of levothyroxine for now 4. Disposition - Awaiting CT surgery assessment to determine if candidate for CABG vs LHC - Continue monitoring on telemetry Subjective 24 Hr Interval Summary Free Text/Dictation Patient still doing well but concerned about his factor 7 deficiency and undergoing procedures. Plan of Care was clarified this am with Dr. Kim and family as well as patient updated. No acute overnight events and no new complaints. Exam/Review of Systems Vital Signs Vitals Vital Signs Date Time Temp Pulse Resp B/P Pulse Ox O2 Delivery O2 Flow Rate FiO2 05/06/17 09:15 77 05/06/17 07:29 97.6 18 110/61 97 05/04/17 18:58 Room Air Intake and Output 05/05/17 05/05/17 05/06/17 15:00 23:00 07:00 Intake Total 950 ml 200 ml Balance 950 ml 200 ml Exam Constitutional: alert, oriented, well developed. No distress Head: atraumatic, normocephalic Eyes: EOMI, PERRL, nl sclera Neck: non-tender, supple Respiratory: clear to auscultation, No crackles/rales, No diminished breath sounds Cardiovascular: regular rate and rhythm, No murmurs/extra sounds, No systolic murmur Gastrointestinal: bowel sounds, non-tender, soft, No distended, No rebound or guarding Musculoskeletal: nl extremities to inspection Extremities: normal pulses, No clubbing, No cyanosis, No edema, No pitting pedal edema Neurological: INSPECTOR BALANCE BRIDGE II-XII intact, nl mental status, nl speech Skin: nl turgor Results Result Diagram: 05/06/1744 05/06/17 0544 Results 24 hrs Laboratory Tests Test 05/06/17 05:44 White Blood Count 7.1 Red Blood Count 4.39 L Hemoglobin 12.6 L Hematocrit 38.1 L Mean Corpuscular Volume 86.8 Mean Corpuscular Hemoglobin 28.7 L Mean Corpuscular Hemoglobin Concent 33.1 Red Cell Distribution Width 13.0 Platelet Count 197 Mean Platelet Volume 11.0 H Neutrophils % 65.9 Lymphocytes % 22.9 Monocytes % 6.8 Eosinophils % 3.7 Basophils % 0.3 Nucleated Red Blood Cells % 0.0 Neutrophils # 4.7 Lymphocytes # 1.6 Monocytes # 0.5 Eosinophils # 0.3 Basophils # 0.0 Nucleated Red Blood Cells # 0.0 Prothrombin Time 23.9 H Prothrombin Time Ratio 1.9 INR International Normalized Ratio 2.11 Sodium Level 141 Potassium Level 4.3 Chloride Level 105 Carbon Dioxide Level 29 Anion Gap 11 Blood Urea Nitrogen 23 H Creatinine 0.99 Glucose Level 90 Calcium Level 9.1 Phosphorus Level 3.4 Magnesium Level 1.8 Albumin 3.5 Medications Medications Current Medications Acetaminophen (Tylenol Tab) 650 mg Q4H PRN PO NON-CARDIAC PAIN LEVEL (1-3) Last administered on 05/04/17 21:16; Admin Dose 650 MG; Start 05/04/17 at 14: 30 Al Hydrox/Mg Hydrox/Simethicone (Mag-Al Plus) 30 ml Q4H PRN PO GASTROINTESTINAL UPSET; Start 05/04/17 at 14:30 Ondansetron HCl (Zofran Inj) 4 mg Q4H PRN IV NAUSEA AND/OR VOMITING; Start at 14:30 Atorvastatin Calcium (Lipitor) 80 mg QHS PO Last administered on 05/05/17 21: 55; Admin Dose 80 MG; Start 05/04/17 at 21:00 Clopidogrel Bisulfate (plaVIX) 75 mg DAILY PO Last administered on 05/06/17 10:46; Admin Dose 75 MG; Start 05/05/17 at 09:00 Gabapentin (Neurontin) 300 mg BID PO Last administered on 05/06/17 10:46; Admin Dose 300 MG; Start 05/04/17 at 21:00 Isosorbide Mononitrate (Imdur) 30 mg DAILY PO Last administered on 05/06/17 10:46; Admin Dose 30 MG; Start 05/05/17 at 09:00 Fish Oil (Fish Oil) 2,000 mg BID PO Last administered on 05/06/17 10:46; Admin Dose 2,000 MG; Start 05/04/17 at 21:00 Ondansetron HCl (Zofran Inj) 4 mg Q6H PRN IV NAUSEA AND/OR VOMITING; Start at 15:30 Nitroglycerin (Nitroglycerin (Sl Tab) 0.4 Mg) 1 tab Q5M PRN SL CHEST PAIN; Start 05/04/17 at 15:30 Morphine Sulfate (morphine) 2 mg Q4H PRN IV PAIN LEVEL 7-10; Start 05/04/17 at 15:30 Docusate Sodium (Colace) 100 mg Q12H PRN PO CONSTIPATION; Start 05/04/17 at 15 :30 Magnesium Hydroxide (Milk Of Mag) 30 ml DAILY PRN PO CONSTIPATION; Start 05/04 at 15:30 Pantoprazole (Protonix Tab) 40 mg DAILY@06 PO Last administered on 05/05/17 06:00; Admin Dose 40 MG; Start 05/05/17 at 06:00 Lisinopril (Zestril) 10 mg DAILY PO ; Start 05/06/17 at 09:00 Metoprolol Tartrate (Lopressor) 25 mg BID PO Last administered on 05/06/17 10 :47; Admin Dose 25 MG; Start 05/05/17 at 21:00 Factor VII (Pha) (Novoseven (Factor Vii)) 1 mg Q4 IV ; Start 05/09/17 at 09:00 ; Stop 05/09/17 at 17:01; Status TIERRA MARIE MD May 06, 2017 11:06
--- NOTE | 2017-05-06 15:56 | RADRPT ---
PROCEDURE: US Carotids. CLINICAL INDICATION: Preop CABG. TECHNIQUE: Multiple sonographic of the carotid arteries were obtained utilizing mitchell scale imaging . Color and Doppler imaging was performed. The images were reviewed on a PACS workstation. COMPARISON: No prior studies are available for comparison. FINDINGS: Location Right Left CCA 80 cm/sec 70 cm/sec Prox ICA 34 cm/sec 42 cm/sec Mid ICA 50 cm/sec 44 cm/sec Dist ICA 47 cm/sec 59 cm/sec ECA 40 cm/sec 57 cm/sec ICA/CCA 0.8 0.8 Antegrade flow is seen within the vertebral arteries bilaterally. No significant plaque is seen with in the carotid system bilaterally. No hemodynamically significant stenosis or occlusion is identifi ed. IMPRESSION: 1. No evidence for hemodynamically significant stenosis - validated velocity measurements with angio graphic measurements, velocity criteria are extrapolated from diameter data as defined by the Societ y of Radiologists in Ultrasound Consensus Conference Radiology 2003; 229;340-346. This study does i ndirectly reference the measurement of the distal ICA diameter as the denominator for stenosis measu rement. 2. Antegrade flow seen within the vertebral arteries bilaterally. SRU Consensus Conference Criteria for the Diagnosis of Carotid Artery Stenosis Degree of Stenosis, % ICA PSV, cm/sec Plaque Estimate, % ICA/CCA PSV Ratio Normal <125 None <2.0 <50 <125 <50 <2.0 50 69 125-230 >50 2.0-4.0 >70 but less than near occlusion >230 >50 <4.0 Near occlusion High, low, or undetectable Visible Variable Total occlusion Undetectable Visible, no detectable lumen Not applicable *Cartoid artery stenosis: mitchell-scale and Doppler US diagnosis. Society of Radiologists in Ultrasound Consensus Conference. Radiology 2003; 229: 340-346 RPTAT: JJ .Abdoul Albert MD, Date Time Electronically viewed and signed by .Abdoul Albert MD, MD on 05/06/2017 15:56 .A/
--- NOTE | 2017-05-06 15:58 | CONS ---
DATE OF ADMISSION: 05/04/2017 DATE OF CONSULTATION: REASON FOR CONSULTATION Coronary artery disease, evaluation for coronary artery bypass grafting. Thank you, Dr. Kim, for asking me to see this patient. HISTORY OF PRESENT ILLNESS: This is a 56-year-old male with a history of coronary artery disease st atus post coronary angioplasty and stent placement, admitted because of chest pain, was found to hav e 3-vessel coronary artery disease involving LAD, circumflex diagonal branch of the LAD and 100% occ lusion of the right coronary artery. Patient is currently chest pain free. PAST MEDICAL HISTORY: Significant for coagulopathy with factor VII deficiency, coronary arteries, h ypertension. PAST SURGICAL HISTORY: Coronary angiogram. ALLERGIES: NONE. SOCIAL HISTORY: No smoking, drinking or drug use. MEDICATIONS: List reviewed. PHYSICAL EXAMINATION: VITAL SIGNS: Blood pressure is 127/81, pulse is 85, respirations 19, saturations 96% on room air. CARDIOVASCULAR: Regular rate and rhythm. LUNGS: Clear. ABDOMEN: Soft. EXTREMITIES: Warm. LABORATORY VALUES: Significant for hemoglobin of 12.6, platelet count 197. INR is 2.1. IMPRESSION: 1. Coronary artery disease. 2. Coagulopathy. RECOMMENDATIONS: We will proceed with coronary artery bypass grafting after recommendations from he matology/oncology. Discussed with the patient the risks, benefits, complications, alternative thera pies explained to the patient and the family. All questions answered. Dictated By: MARYAM BYRD/NTS Conf#: [id number] DID#: [id number]
[2017-05-06] MEDS: ATORVASTATIN 80 MG TAB PO SCH (21:00)
[2017-05-07] VITALS (10 sets, daily range): BP systolic 93–117; BP diastolic 57–63; PULSE 60–84; RESP 16–18
[2017-05-07] MEDS: PANTOPRAZOLE (EC) 40 MG TAB PO SCH (06:07)
[2017-05-07] MEDS: LEVOTHYROXINE 100 MCG TAB PO SCH (06:09)
[2017-05-07 07:05] LABS: BASOPHILS % 0.6 % (0.0-2.0); EOSINOPHILS # 0.3 10^3/ul (0.0-0.5); EOSINOPHILS % 4.2 % (0.0-7.0); HEMATOCRIT 38.4 % (42.0-52.0); HEMOGLOBIN 12.5 g/dl (14.0-18.0); LYMPHOCYTES # 1.5 10^3/ul (0.8-2.9); LYMPHOCYTES % 23.3 % (15.0-51.0); MEAN CORPUSCULAR HEMOGLOBIN 28.2 pg (29.0-33.0); MEAN CORPUSCULAR HGB CONC 32.6 g/dl (32.0-37.0); MEAN CORPUSCULAR VOLUME 86.5 fl (82.0-101.0); MEAN PLATELET VOLUME 10.9 fl (7.4-10.4); MONOCYTE # 0.5 10^3/ul (0.3-0.9); MONOCYTES % 7.1 % (0.0-11.0); NEUTROPHIL # 4.2 10^3/ul (1.6-7.5); NEUTROPHILS % 64.2 % (39.0-77.0); PLATELET COUNT 182 10^3/UL (140-415); RED BLOOD COUNT 4.44 10^6/ul (4.70-6.10); RED CELL DISTRIBUTION WIDTH 12.8 % (11.5-14.5); WHITE BLOOD COUNT 6.5 10^3/ul (4.8-10.8)
[2017-05-07 07:55] LABS: ALBUMIN 3.6 g/dl (3.3-4.9); CALCIUM 9.1 mg/dl (8.4-10.2); CREATININE 1.08 mg/dl (0.61-1.24); MAGNESIUM 1.8 mg/dl (1.7-2.5); PHOSPHORUS 3.1 mg/dl (2.5-4.9); POTASSIUM 4.7 mmol/L (3.5-5.1)
--- NOTE | 2017-05-07 09:09 | CONS ---
Date/Time of Note Date/Time of Note DATE: 05/07/17 TIME: 08:56 Assessment/Plan Assessment/Plan Chief Complaint/Hosp Course #Coagulopathy -Per the patient and his family, pt has factor VII deficiency -I still would like to evaluate his factors to confirm the type of factor deficiency. Factor studies are pending -PT mixing study corrected confirming factor deficiency -if there is in fact a deficiency of factor VII, pt can be given a dose of parvin 7. dose would be 15mcg/kg q 4 hours, first dose to be given 30min to 1 hour immediately before surgery. Given the risk of clotting off the graft, would not give another dose of novo7 post op unless patient actively bleeds #Multivessel disease CAD -patient is scheduled for CABG this tuesday -continue Beta Blockade #HTN -BP ok -continue strict blood pressure control per cardiology Problems: Consultation Date/Type/Reason Admit Date/Time May 04, 2017 at 15:44 Initial Consult Date 05/05/17 Type of Consultation: Hematology Reason for Consultation factor VII deficiency Referring Provider: DAYANARA SHABAZZ 24 HR Interval Summary Free Text/Dictation pt as been evaluate by cardiothoracic surgery and is scheduled for CABG next week. currently no chest pain Exam/Review of Systems Vital Signs Vitals Vital Signs Date Time Temp Pulse Resp B/P Pulse Ox O2 Delivery O2 Flow Rate FiO2 05/07/17 08:24 84 05/07/17 08:17 98.2 16 117/59 97 05/04/17 18:58 Room Air Intake and Output 05/06/17 05/06/17 05/07/17 15:00 23:00 07:00 Intake Total 850 ml 400 ml Balance 850 ml 400 ml Exam Constitutional: alert, oriented Psych: no complaints Head: normocephalic Eyes: nl conjunctiva ENMT: nl external ears & nose Neck: supple Respiratory: clear to auscultation, normal air movement Cardiovascular: regular rate and rhythm Musculoskeletal: nl extremities to inspection Results Result Diagram: 05/07/1729 05/07/1729 Results 24 hrs Laboratory Tests Test 05/07/17 06:29 White Blood Count 6.5 Red Blood Count 4.44 L Hemoglobin 12.5 L Hematocrit 38.4 L Mean Corpuscular Volume 86.5 Mean Corpuscular Hemoglobin 28.2 L Mean Corpuscular Hemoglobin Concent 32.6 Red Cell Distribution Width 12.8 Platelet Count 182 Mean Platelet Volume 10.9 H Neutrophils % 64.2 Lymphocytes % 23.3 Monocytes % 7.1 Eosinophils % 4.2 Basophils % 0.6 Nucleated Red Blood Cells % 0.0 Neutrophils # 4.2 Lymphocytes # 1.5 Monocytes # 0.5 Eosinophils # 0.3 Basophils # 0.0 Nucleated Red Blood Cells # 0.0 Sodium Level 141 Potassium Level 4.7 Chloride Level 106 Carbon Dioxide Level 30 Anion Gap 10 Blood Urea Nitrogen 25 H Creatinine 1.08 Glucose Level 94 Calcium Level 9.1 Phosphorus Level 3.1 Magnesium Level 1.8 Albumin 3.6 Medications Medications Current Medications Acetaminophen (Tylenol Tab) 650 mg Q4H PRN PO NON-CARDIAC PAIN LEVEL (1-3) Last administered on 05/04/17 21:16; Admin Dose 650 MG; Start 05/04/17 at 14: 30 Al Hydrox/Mg Hydrox/Simethicone (Mag-Al Plus) 30 ml Q4H PRN PO GASTROINTESTINAL UPSET; Start 05/04/17 at 14:30 Ondansetron HCl (Zofran Inj) 4 mg Q4H PRN IV NAUSEA AND/OR VOMITING; Start at 14:30 Atorvastatin Calcium (Lipitor) 80 mg QHS PO Last administered on 05/06/17 21: 00; Admin Dose 80 MG; Start 05/04/17 at 21:00 Clopidogrel Bisulfate (plaVIX) 75 mg DAILY PO Last administered on 05/06/17 10:46; Admin Dose 75 MG; Start 05/05/17 at 09:00 Gabapentin (Neurontin) 300 mg BID PO Last administered on 05/06/17 21:00; Admin Dose 300 MG; Start 05/04/17 at 21:00 Isosorbide Mononitrate (Imdur) 30 mg DAILY PO Last administered on 05/06/17 10:46; Admin Dose 30 MG; Start 05/05/17 at 09:00 Fish Oil (Fish Oil) 2,000 mg BID PO Last administered on 05/06/17 21:00; Admin Dose 2,000 MG; Start 05/04/17 at 21:00 Ondansetron HCl (Zofran Inj) 4 mg Q6H PRN IV NAUSEA AND/OR VOMITING; Start at 15:30 Nitroglycerin (Nitroglycerin (Sl Tab) 0.4 Mg) 1 tab Q5M PRN SL CHEST PAIN; Start 05/04/17 at 15:30 Morphine Sulfate (morphine) 2 mg Q4H PRN IV PAIN LEVEL 7-10; Start 05/04/17 at 15:30 Docusate Sodium (Colace) 100 mg Q12H PRN PO CONSTIPATION; Start 05/04/17 at 15 :30 Magnesium Hydroxide (Milk Of Mag) 30 ml DAILY PRN PO CONSTIPATION; Start 05/04 at 15:30 Pantoprazole (Protonix Tab) 40 mg DAILY@06 PO Last administered on 05/07/17 06:07; Admin Dose 40 MG; Start 05/05/17 at 06:00 Lisinopril (Zestril) 10 mg DAILY PO ; Start 05/06/17 at 09:00 Metoprolol Tartrate (Lopressor) 25 mg BID PO Last administered on 05/06/17 10 :47; Admin Dose 25 MG; Start 05/05/17 at 21:00 Factor VII (Pha) (Novoseven (Factor Vii)) 1 mg Q4 IV ; Start 05/09/17 at 09:00 ; Stop 05/09/17 at 17:01; Status KERRY BOCANEGRA M.D. May 07, 2017 09:06
[2017-05-07] MEDS: LISINOPRIL 10 MG TAB PO SCH (09:33)
[2017-05-07] MEDS: FISH OIL 1,000 MG CAP PO SCH ×2 (09:33→21:16)
[2017-05-07] MEDS: CLOPIDOGREL 75 MG TAB PO SCH (09:33)
[2017-05-07] MEDS: GABAPENTIN 300 MG CAP PO SCH ×2 (09:33→21:16)
[2017-05-07] MEDS: ISOSORBIDE MONONITRATE(SR)30 MG TAB PO SCH (09:33)
[2017-05-07] MEDS: METOPROLOL 25 MG TAB PO SCH ×2 (09:34→21:00)
--- NOTE | 2017-05-07 14:56 | CONS ---
Date/Time of Note Date/Time of Note DATE: 05/07/17 TIME: 14:54 Assessment/Plan Assessment/Plan Chief Complaint/Hosp Course IMP: 1.cad-mutivessel obstructive by [facility] 05/04 2.UNstable angina-secondary to cad as above 3. Coagulopathy-factor V11 def?: 4.HTN-borderline hotn today after receiving baseline anti-hypertensives 5.HL Recc: -Tele -serial ecg's -Change BB/ACEI -Greatly appreciate Heme/Dr Goddard input with plans to give coagulation factor prior to surgery/cabg scheduled tuesday with correction already shown by mixing studies Problems: Consultation Date/Type/Reason Admit Date/Time May 04, 2017 at 15:44 Initial Consult Date 05/04/2017 Type of Consultation: cardiology Reason for Consultation angina/cad Referring Provider: DAAYNARA SHABAZZ Exam/Review of Systems Vital Signs Vitals Vital Signs Date Time Temp Pulse Resp B/P Pulse Ox O2 Delivery O2 Flow Rate FiO2 05/07/17 12:14 60 05/07/17 11:26 97.8 18 97/57 95 05/04/17 18:58 Room Air Intake and Output 05/06/17 05/06/17 05/07/17 15:00 23:00 07:00 Intake Total 850 ml 400 ml Balance 850 ml 400 ml Exam Review of Systems: CONSTITUTIONAL: No fevers, chills. PULMONARY: No sob CARDIOVASCULAR: No chest pain/palpitations GASTROINTESTINAL: No nausea/vomiting. GENITOURINARY: No hematuria/dysuria. MUSCULOSKELETAL: No myagias/arthalgias. PSYCHIATRIC: The patient denies depression. NEUROLOGIC: No weakness Constitutional: alert, oriented Psych: no complaints Head: normocephalic ENMT: mucosa pink and moist Neck: jvd (8 cm water), supple Respiratory: diminished breath sounds (at bases/B) Cardiovascular: regular rate and rhythm Gastrointestinal: non-tender, soft Musculoskeletal: muscle tone (normal) Extremities: edema (none) Neurological: other (No focal deficits) Results Result Diagram: 05/07/17 0629 05/07/17 0629 Results 24 hrs Laboratory Tests Test 05/07/17 06:29 White Blood Count 6.5 Red Blood Count 4.44 L Hemoglobin 12.5 L Hematocrit 38.4 L Mean Corpuscular Volume 86.5 Mean Corpuscular Hemoglobin 28.2 L Mean Corpuscular Hemoglobin Concent 32.6 Red Cell Distribution Width 12.8 Platelet Count 182 Mean Platelet Volume 10.9 H Neutrophils % 64.2 Lymphocytes % 23.3 Monocytes % 7.1 Eosinophils % 4.2 Basophils % 0.6 Nucleated Red Blood Cells % 0.0 Neutrophils # 4.2 Lymphocytes # 1.5 Monocytes # 0.5 Eosinophils # 0.3 Basophils # 0.0 Nucleated Red Blood Cells # 0.0 Sodium Level 141 Potassium Level 4.7 Chloride Level 106 Carbon Dioxide Level 30 Anion Gap 10 Blood Urea Nitrogen 25 H Creatinine 1.08 Glucose Level 94 Calcium Level 9.1 Phosphorus Level 3.1 Magnesium Level 1.8 Albumin 3.6 Medications Medications Current Medications Acetaminophen (Tylenol Tab) 650 mg Q4H PRN PO NON-CARDIAC PAIN LEVEL (1-3) Last administered on 05/04/17 21:16; Admin Dose 650 MG; Start 05/04/17 at 14: 30 Al Hydrox/Mg Hydrox/Simethicone (Mag-Al Plus) 30 ml Q4H PRN PO GASTROINTESTINAL UPSET; Start 05/04/17 at 14:30 Ondansetron HCl (Zofran Inj) 4 mg Q4H PRN IV NAUSEA AND/OR VOMITING; Start at 14:30 Atorvastatin Calcium (Lipitor) 80 mg QHS PO Last administered on 05/06/17 21: 00; Admin Dose 80 MG; Start 05/04/17 at 21:00 Clopidogrel Bisulfate (plaVIX) 75 mg DAILY PO Last administered on 05/07/17 09:33; Admin Dose 75 MG; Start 05/05/17 at 09:00 Gabapentin (Neurontin) 300 mg BID PO Last administered on 05/07/17 09:33; Admin Dose 300 MG; Start 05/04/17 at 21:00 Isosorbide Mononitrate (Imdur) 30 mg DAILY PO Last administered on 05/07/17 09:33; Admin Dose 30 MG; Start 05/05/17 at 09:00 Fish Oil (Fish Oil) 2,000 mg BID PO Last administered on 05/07/17 09:33; Admin Dose 2,000 MG; Start 05/04/17 at 21:00 Nitroglycerin (Nitroglycerin (Sl Tab) 0.4 Mg) 1 tab Q5M PRN SL CHEST PAIN; Start 05/04/17 at 15:30 Morphine Sulfate (morphine) 2 mg Q4H PRN IV PAIN LEVEL 7-10; Start 05/04/17 at 15:30 Docusate Sodium (Colace) 100 mg Q12H PRN PO CONSTIPATION; Start 05/04/17 at 15 :30 Magnesium Hydroxide (Milk Of Mag) 30 ml DAILY PRN PO CONSTIPATION; Start 05/04 at 15:30 Pantoprazole (Protonix Tab) 40 mg DAILY@06 PO Last administered on 05/07/17 06:07; Admin Dose 40 MG; Start 05/05/17 at 06:00 Lisinopril (Zestril) 10 mg DAILY PO Last administered on 05/07/17 09:33; Admin Dose 10 MG; Start 05/06/17 at 09:00 Metoprolol Tartrate (Lopressor) 25 mg BID PO Last administered on 05/07/17 09 :34; Admin Dose 25 MG; Start 05/05/17 at 21:00 Factor VII (Pha) (Novoseven (Factor Vii)) 1 mg Q4 IV ; Start 05/09/17 at 09:00 ; Stop 05/09/17 at 17:01; Status DAYANARA ARGUELLES May 07, 2017 14:56
--- NOTE | 2017-05-07 18:03 | PN ---
Date/Time of Note Date/Time of Note DATE: 05/07/17 TIME: 18:03 Assessment/Plan Lines/Catheters IV Catheter Type (from Nrs): Saline Lock Harding in Place (from Nrs): No Assessment/Plan Chief Complaint/Hosp Course IMPRESSION: 1. Coronary artery disease. 2. Coagulopathy. RECOMMENDATIONS: We will proceed with coronary artery bypass grafting after recommendations from hematology/oncology. Discussed with the patient the risks , benefits, complications, alternative therapies explained to the patient and the family. All questions answered. Plan for CABG on Tuesday Problems: Subjective 24 Hr Interval Summary Constitutional: improved Pain Control: mild Exam/Review of Systems Vital Signs Vitals Vital Signs Date Time Temp Pulse Resp B/P Pulse Ox O2 Delivery O2 Flow Rate FiO2 05/07/17 16:59 63 05/07/17 15:36 98.2 16 93/63 95 05/04/17 18:58 Room Air Intake and Output 05/06/17 05/06/17 05/07/17 15:00 23:00 07:00 Intake Total 850 ml 400 ml Balance 850 ml 400 ml Exam Neck: non-tender, supple Respiratory: clear to auscultation, normal air movement Cardiovascular: nl pulses, regular rate and rhythm Gastrointestinal: nl liver, spleen, non-tender, soft Results Result Diagram: 05/07/17 0629 05/07/17 0629 MARYAM TORRE MD May 07, 2017 18:03
[2017-05-07] MEDS: ATORVASTATIN 80 MG TAB PO SCH (21:16)
[2017-05-08] VITALS (13 sets, daily range): BP systolic 99–125; BP diastolic 59–77; PULSE 65–75; RESP 17–20
[2017-05-08] MEDS: LEVOTHYROXINE 100 MCG TAB PO SCH (06:41)
[2017-05-08] MEDS: PANTOPRAZOLE (EC) 40 MG TAB PO SCH (06:41)
[2017-05-08 08:00] LABS: BASOPHILS % 0.5 % (0.0-2.0); EOSINOPHILS # 0.3 10^3/ul (0.0-0.5); EOSINOPHILS % 4.8 % (0.0-7.0); HEMATOCRIT 40.8 % (42.0-52.0); HEMOGLOBIN 13.3 g/dl (14.0-18.0); LYMPHOCYTES # 1.7 10^3/ul (0.8-2.9); LYMPHOCYTES % 27.7 % (15.0-51.0); MEAN CORPUSCULAR HEMOGLOBIN 28.3 pg (29.0-33.0); MEAN CORPUSCULAR HGB CONC 32.6 g/dl (32.0-37.0); MEAN CORPUSCULAR VOLUME 86.8 fl (82.0-101.0); MEAN PLATELET VOLUME 10.8 fl (7.4-10.4); MONOCYTE # 0.4 10^3/ul (0.3-0.9); MONOCYTES % 6.8 % (0.0-11.0); NEUTROPHIL # 3.7 10^3/ul (1.6-7.5); NEUTROPHILS % 59.7 % (39.0-77.0); PLATELET COUNT 182 10^3/UL (140-415); RED CELL DISTRIBUTION WIDTH 12.4 % (11.5-14.5); WHITE BLOOD COUNT 6.2 10^3/ul (4.8-10.8)
[2017-05-08] MEDS: FISH OIL 1,000 MG CAP PO SCH ×2 (08:08→20:18)
[2017-05-08] MEDS: LISINOPRIL 10 MG TAB PO SCH (08:09)
[2017-05-08] MEDS: ISOSORBIDE MONONITRATE(SR)30 MG TAB PO SCH (08:09)
[2017-05-08] MEDS: METOPROLOL 25 MG TAB PO SCH ×2 (08:09→20:18)
[2017-05-08] MEDS: GABAPENTIN 300 MG CAP PO SCH ×2 (08:09→20:18)
[2017-05-08] MEDS: CLOPIDOGREL 75 MG TAB PO SCH (08:09)
[2017-05-08 08:15] LABS: ALBUMIN 3.9 g/dl (3.3-4.9); CALCIUM 8.9 mg/dl (8.4-10.2); CREATININE 1.04 mg/dl (0.61-1.24); PHOSPHORUS 3.1 mg/dl (2.5-4.9); POTASSIUM 4.5 mmol/L (3.5-5.1)
--- NOTE | 2017-05-08 13:15 | CONS ---
Date/Time of Note Date/Time of Note DATE: 05/08/17 TIME: 13:13 Assessment/Plan Assessment/Plan Chief Complaint/Hosp Course IMP: 1.cad-mutivessel obstructive by [facility] 05/04 2.UNstable angina-secondary to cad as above 3. Coagulopathy-factor V11 def?: 4.HTN-borderline hotn today after receiving baseline anti-hypertensives 5.HL Recc: -Tele -serial ecg's -Continue BB/oral nitrates -Decrease dose of zestril given marginal BP after receiving -Greatly appreciate Nilda/Dr Goddard input with plans to give coagulation factor prior to surgery/cabg scheduled tuesday with correction already shown by mixing studies -For Cabg tomorrow with pre-op coagulation factor to be given Problems: Consultation Date/Type/Reason Admit Date/Time May 04, 2017 at 15:44 Initial Consult Date 05/04/2017 Type of Consultation: cardiology Reason for Consultation cad/angina Referring Provider: DAYANARA SHABAZZ Exam/Review of Systems Vital Signs Vitals Vital Signs Date Time Temp Pulse Resp B/P Pulse Ox O2 Delivery O2 Flow Rate FiO2 05/08/17 12:09 66 05/08/17 11:43 98.2 20 99/60 100 Room Air Intake and Output 05/07/17 05/07/17 05/08/17 15:00 23:00 07:00 Intake Total 450 ml 500 ml Balance 450 ml 500 ml Exam Review of Systems: CONSTITUTIONAL: No fevers, chills. PULMONARY: No sob CARDIOVASCULAR: No chest pain/palpitations GASTROINTESTINAL: No nausea/vomiting. GENITOURINARY: No hematuria/dysuria. MUSCULOSKELETAL: No myagias/arthalgias. PSYCHIATRIC: The patient denies depression. NEUROLOGIC: No weakness Constitutional: alert Psych: no complaints Head: normocephalic ENMT: mucosa pink and moist Neck: jvd (9 cm water), supple Respiratory: clear to auscultation Cardiovascular: regular rate and rhythm Gastrointestinal: non-tender, soft Musculoskeletal: muscle tone (normal) Extremities: edema (none) Neurological: other (No focal deficits) Results Result Diagram: 05/08/17 0734 05/08/17 0734 Results 24 hrs Laboratory Tests Test 05/08/17 07:34 White Blood Count 6.2 Red Blood Count 4.70 Hemoglobin 13.3 L Hematocrit 40.8 L Mean Corpuscular Volume 86.8 Mean Corpuscular Hemoglobin 28.3 L Mean Corpuscular Hemoglobin Concent 32.6 Red Cell Distribution Width 12.4 Platelet Count 182 Mean Platelet Volume 10.8 H Neutrophils % 59.7 Lymphocytes % 27.7 Monocytes % 6.8 Eosinophils % 4.8 Basophils % 0.5 Nucleated Red Blood Cells % 0.0 Neutrophils # 3.7 Lymphocytes # 1.7 Monocytes # 0.4 Eosinophils # 0.3 Basophils # 0.0 Nucleated Red Blood Cells # 0.0 Sodium Level 142 Potassium Level 4.5 Chloride Level 105 Carbon Dioxide Level 29 Anion Gap 13 Blood Urea Nitrogen 20 Creatinine 1.04 Glucose Level 85 Calcium Level 8.9 Phosphorus Level 3.1 Magnesium Level 2.0 Albumin 3.9 Medications Medications Current Medications Acetaminophen (Tylenol Tab) 650 mg Q4H PRN PO NON-CARDIAC PAIN LEVEL (1-3) Last administered on 05/04/17 21:16; Admin Dose 650 MG; Start 05/04/17 at 14: 30 Al Hydrox/Mg Hydrox/Simethicone (Mag-Al Plus) 30 ml Q4H PRN PO GASTROINTESTINAL UPSET; Start 05/04/17 at 14:30 Ondansetron HCl (Zofran Inj) 4 mg Q4H PRN IV NAUSEA AND/OR VOMITING; Start at 14:30 Atorvastatin Calcium (Lipitor) 80 mg QHS PO Last administered on 05/07/17 21: 16; Admin Dose 80 MG; Start 05/04/17 at 21:00 Clopidogrel Bisulfate (plaVIX) 75 mg DAILY PO Last administered on 05/08/17 08:09; Admin Dose 75 MG; Start 05/05/17 at 09:00 Gabapentin (Neurontin) 300 mg BID PO Last administered on 05/08/17 08:09; Admin Dose 300 MG; Start 05/04/17 at 21:00 Isosorbide Mononitrate (Imdur) 30 mg DAILY PO Last administered on 05/08/17 08:09; Admin Dose 30 MG; Start 05/05/17 at 09:00 Fish Oil (Fish Oil) 2,000 mg BID PO Last administered on 05/08/17 08:08; Admin Dose 2,000 MG; Start 05/04/17 at 21:00 Nitroglycerin (Nitroglycerin (Sl Tab) 0.4 Mg) 1 tab Q5M PRN SL CHEST PAIN; Start 05/04/17 at 15:30 Morphine Sulfate (morphine) 2 mg Q4H PRN IV PAIN LEVEL 7-10; Start 05/04/17 at 15:30 Docusate Sodium (Colace) 100 mg Q12H PRN PO CONSTIPATION; Start 05/04/17 at 15 :30 Magnesium Hydroxide (Milk Of Mag) 30 ml DAILY PRN PO CONSTIPATION; Start 05/04 at 15:30 Pantoprazole (Protonix Tab) 40 mg DAILY@06 PO Last administered on 05/08/17 06:41; Admin Dose 40 MG; Start 05/05/17 at 06:00 Lisinopril (Zestril) 10 mg DAILY PO Last administered on 05/08/17 08:09; Admin Dose 10 MG; Start 05/06/17 at 09:00 Metoprolol Tartrate (Lopressor) 25 mg BID PO Last administered on 05/08/17 08 :09; Admin Dose 25 MG; Start 05/05/17 at 21:00 Factor VII (Pha) (Novoseven (Factor Vii)) 1 mg Q4 IV ; Start 05/09/17 at 09:00 ; Stop 05/09/17 at 17:01; Status DAYANARA ARGUELLES May 08, 2017 13:15
--- NOTE | 2017-05-08 13:34 | PN ---
Date/Time of Note Date/Time of Note DATE: 05/08/17 TIME: 13:33 Assessment/Plan Lines/Catheters IV [facility] (from [facility] Saline Lock Harding in Place (from Nrs): No Assessment/Plan Chief Complaint/Hosp Course IMPRESSION: 1. Coronary artery disease. 2. Coagulopathy. RECOMMENDATIONS: We will proceed with coronary artery bypass grafting after recommendations from hematology/oncology. Discussed with the patient the risks , benefits, complications, alternative therapies explained to the patient and the family. All questions answered. Plan for CABG on tomorrow discussed with the family Problems: Subjective 24 Hr Interval Summary Constitutional: improved Pain Control: mild Exam/Review of Systems Vital Signs Vitals Vital Signs Date Time Temp Pulse Resp B/P Pulse Ox O2 Delivery O2 Flow Rate FiO2 05/08/17 12:09 66 05/08/17 11:43 98.2 20 99/60 100 Room Air Intake and Output 05/07/17 05/07/17 05/08/17 15:00 23:00 07:00 Intake Total 450 ml 500 ml Balance 450 ml 500 ml Exam Cardiovascular: nl pulses, regular rate and rhythm Gastrointestinal: nl liver, spleen, non-tender, soft Results Result Diagram: 05/08/17 0734 05/08/17 0734 MARYAM TORRE MD May 08, 2017 13:34
--- NOTE | 2017-05-08 14:11 | PN ---
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 Plans for Novo7 prior to CABG tmrw but no further doses following surgery due to risk of graft clotting off. - PTT Mixing study showed correction - No av bleeding appreciated at this time and will continue to monitor 2. CAD s/p stenting in 2005 - Found to have multivessel disease during diagnostic catheterization on 05/04 - Cardiology on board and recommendations appreciated. Plans for CABG tomorrow - Appreciate both Cardiology and CT surgery consultation 3. Hypothyroidism - TSH within nl limits - continue home dose of levothyroxine for now 4. Disposition - Plans for CABG tmrw morning - NPO after midnight Subjective 24 Hr Interval Summary Free Text/Dictation Patient doing well and no new complaints. No acute overnight events. Son at bedside and discussed plans for CABG tmrw with factor given prior to surgery Exam/Review of Systems Vital Signs Vitals Vital Signs Date Time Temp Pulse Resp B/P Pulse Ox O2 Delivery O2 Flow Rate FiO2 05/08/17 12:09 66 05/08/17 11:43 98.2 20 99/60 100 Room Air Intake and Output 05/07/17 05/07/17 05/08/17 15:00 23:00 07:00 Intake Total 450 ml 500 ml Balance 450 ml 500 ml Exam Constitutional: alert, oriented, well developed. No distress Head: atraumatic, normocephalic Eyes: EOMI, PERRL, nl sclera Neck: non-tender, supple Respiratory: clear to auscultation, No crackles/rales, No diminished breath sounds Cardiovascular: regular rate and rhythm, No murmurs/extra sounds, No systolic murmur Gastrointestinal: bowel sounds, non-tender, soft, No distended, No rebound or guarding Musculoskeletal: nl extremities to inspection Extremities: normal pulses, No clubbing, No cyanosis, No edema, No pitting pedal edema Neurological: BIT TRIPOLER II-XII intact, nl mental status, nl speech Skin: nl turgor Results Result Diagram: 05/08/17 0734 05/08/17 0734 Results 24 hrs Laboratory Tests Test 05/08/17 07:34 White Blood Count 6.2 Red Blood Count 4.70 Hemoglobin 13.3 L Hematocrit 40.8 L Mean Corpuscular Volume 86.8 Mean Corpuscular Hemoglobin 28.3 L Mean Corpuscular Hemoglobin Concent 32.6 Red Cell Distribution Width 12.4 Platelet Count 182 Mean Platelet Volume 10.8 H Neutrophils % 59.7 Lymphocytes % 27.7 Monocytes % 6.8 Eosinophils % 4.8 Basophils % 0.5 Nucleated Red Blood Cells % 0.0 Neutrophils # 3.7 Lymphocytes # 1.7 Monocytes # 0.4 Eosinophils # 0.3 Basophils # 0.0 Nucleated Red Blood Cells # 0.0 Sodium Level 142 Potassium Level 4.5 Chloride Level 105 Carbon Dioxide Level 29 Anion Gap 13 Blood Urea Nitrogen 20 Creatinine 1.04 Glucose Level 85 Calcium Level 8.9 Phosphorus Level 3.1 Magnesium Level 2.0 Albumin 3.9 Medications Medications Current Medications Acetaminophen (Tylenol Tab) 650 mg Q4H PRN PO NON-CARDIAC PAIN LEVEL (1-3) Last administered on 05/04/17 21:16; Admin Dose 650 MG; Start 05/04/17 at 14: 30 Al Hydrox/Mg Hydrox/Simethicone (Mag-Al Plus) 30 ml Q4H PRN PO GASTROINTESTINAL UPSET; Start 05/04/17 at 14:30 Ondansetron HCl (Zofran Inj) 4 mg Q4H PRN IV NAUSEA AND/OR VOMITING; Start at 14:30 Atorvastatin Calcium (Lipitor) 80 mg QHS PO Last administered on 05/07/17 21: 16; Admin Dose 80 MG; Start 05/04/17 at 21:00 Clopidogrel Bisulfate (plaVIX) 75 mg DAILY PO Last administered on 05/08/17 08:09; Admin Dose 75 MG; Start 05/05/17 at 09:00 Gabapentin (Neurontin) 300 mg BID PO Last administered on 05/08/17 08:09; Admin Dose 300 MG; Start 05/04/17 at 21:00 Isosorbide Mononitrate (Imdur) 30 mg DAILY PO Last administered on 05/08/17 08:09; Admin Dose 30 MG; Start 05/05/17 at 09:00 Fish Oil (Fish Oil) 2,000 mg BID PO Last administered on 05/08/17 08:08; Admin Dose 2,000 MG; Start 05/04/17 at 21:00 Nitroglycerin (Nitroglycerin (Sl Tab) 0.4 Mg) 1 tab Q5M PRN SL CHEST PAIN; Start 05/04/17 at 15:30 Morphine Sulfate (morphine) 2 mg Q4H PRN IV PAIN LEVEL 7-10; Start 05/04/17 at 15:30 Docusate Sodium (Colace) 100 mg Q12H PRN PO CONSTIPATION; Start 05/04/17 at 15 :30 Magnesium Hydroxide (Milk Of Mag) 30 ml DAILY PRN PO CONSTIPATION; Start 05/04 at 15:30 Pantoprazole (Protonix Tab) 40 mg DAILY@06 PO Last administered on 05/08/17 06:41; Admin Dose 40 MG; Start 05/05/17 at 06:00 Metoprolol Tartrate (Lopressor) 25 mg BID PO Last administered on 05/08/17 08 :09; Admin Dose 25 MG; Start 05/05/17 at 21:00 Factor VII (Pha) (Novoseven (Factor Vii)) 1 mg Q4 IV ; Start 05/09/17 at 09:00 ; Stop 05/09/17 at 17:01; Status UNV Lisinopril (Zestril) 5 mg DAILY PO ; Start 05/09/17 at 09:00 TIERRA MURILLO MD May 08, 2017 14:11
[2017-05-08] MEDS: ACETAMINOPHEN 325 MG TAB PO PRN (14:12)
[2017-05-08] MEDS: ATORVASTATIN 80 MG TAB PO SCH (20:18)
[2017-05-09] VITALS (46 sets, daily range): BP systolic 94–150; BP diastolic 59–76; PULSE 72–120; RESP 16–26; TEMP 98.9–101.4
[2017-05-09] MEDS: PANTOPRAZOLE (EC) 40 MG TAB PO SCH (05:59)
[2017-05-09] MEDS ORDERED: FACTOR VIIA 1 MG VIAL IV SCH ×2 (06:30→11:00)
[2017-05-09 06:37] LABS: BASOPHILS % 0.4 % (0.0-2.0); EOSINOPHILS # 0.3 10^3/ul (0.0-0.5); EOSINOPHILS % 4.3 % (0.0-7.0); HEMATOCRIT 38.7 % (42.0-52.0); HEMOGLOBIN 12.9 g/dl (14.0-18.0); LYMPHOCYTES # 1.3 10^3/ul (0.8-2.9); MEAN CORPUSCULAR HEMOGLOBIN 28.7 pg (29.0-33.0); MEAN CORPUSCULAR HGB CONC 33.3 g/dl (32.0-37.0); MEAN CORPUSCULAR VOLUME 86.2 fl (82.0-101.0); MEAN PLATELET VOLUME 11.2 fl (7.4-10.4); MONOCYTE # 0.4 10^3/ul (0.3-0.9); MONOCYTES % 6.4 % (0.0-11.0); NEUTROPHIL # 4.7 10^3/ul (1.6-7.5); NEUTROPHILS % 69.6 % (39.0-77.0); PLATELET COUNT 188 10^3/UL (140-415); RED BLOOD COUNT 4.49 10^6/ul (4.70-6.10); RED CELL DISTRIBUTION WIDTH 12.5 % (11.5-14.5); WHITE BLOOD COUNT 6.7 10^3/ul (4.8-10.8)
[2017-05-09] MEDS ORDERED: PAPAVERINE 60 MG INJ ONE (06:48)
[2017-05-09] MEDS ORDERED: GELATIN SIZE 100 SPONGE ONE (06:48)
[2017-05-09] MEDS ORDERED: VANCOMYCIN 1 GM INJ ONE ×2 (06:48→09:04)
[2017-05-09] MEDS ORDERED: HEPARIN 1000 UNITS/ML 10 ML INJ ONE ×3 (06:49→08:46)
[2017-05-09 06:53] LABS: INR 1.99; PROTIME 22.8 Sec (12.2-14.2); PT RATIO 1.8
[2017-05-09] MEDS ORDERED: THROMBIN 5000 UNIT VIAL ONE (06:55)
[2017-05-09] MEDS: LEVOTHYROXINE 100 MCG TAB PO SCH (07:00)
[2017-05-09 07:03] LABS: ALBUMIN 3.9 g/dl (3.3-4.9); CALCIUM 8.8 mg/dl (8.4-10.2); CREATININE 1.03 mg/dl (0.61-1.24); POTASSIUM 4.2 mmol/L (3.5-5.1)
[2017-05-09] MEDS ORDERED: EPINEPHrine 4 MG in DEXTROSE 5% 246 ML IV SCH (07:30)
[2017-05-09] MEDS ORDERED: INSULIN HUMAN REGULAR 100 UNIT in SOD CHLORIDE 0.9% 99 ML IV SCH (07:30)
[2017-05-09] MEDS ORDERED: PHENYLephrine 20MG IN 250 ML 250 ML IV SCH (07:30)
[2017-05-09] MEDS ORDERED: MIDAZOLAM 5 ML ONE ×2 (07:42)
[2017-05-09] MEDS ORDERED: PHENYLephrine (100 MCG/ML) 5ML SYG ONE ×2 (07:43→11:24)
[2017-05-09] MEDS ORDERED: POTASSIUM CHLORIDE 40 MEQ INJ ONE (07:43)
[2017-05-09] MEDS ORDERED: MAGNESIUM SULFATE 1 GM/D5W 100 ML ONE ×2 (07:44→17:14)
[2017-05-09] MEDS ORDERED: LIDOCAINE 100 MG SYRINGE ONE (07:44)
[2017-05-09] MEDS ORDERED: CA CHLORIDE 10% 10 ML SYRINGE ONE (07:45)
[2017-05-09] MEDS ORDERED: NA BICARBONATE 8.4% 50 ML SYG ONE (07:45)
[2017-05-09] MEDS ORDERED: ALBUMIN HUMAN 25% 300 ML ONE (07:46)
[2017-05-09] MEDS ORDERED: MANNITOL 20% 250 ML IV ONE (07:46)
[2017-05-09] MEDS ORDERED: AMINOCAPROIC ACID 5 GM INJ ONE ×4 (07:47→11:25)
[2017-05-09] MEDS ORDERED: PHENYLephrine 10 MG INJ ONE (07:47)
[2017-05-09] MEDS ORDERED: NITROGLYCERIN 50 MG/D5W 250 ML BTL ONE (08:00)
[2017-05-09] MEDS ORDERED: DOPamine-D5W 1.6 MG/ML 250 ML ONE (08:00)
[2017-05-09] MEDS ORDERED: CEFAZOLIN 1 GM INJ ONE ×2 (08:40→11:25)
[2017-05-09] MEDS ORDERED: PROTAMINE 250 MG INJ ONE (11:31)
[2017-05-09] MEDS ORDERED: FUROSEMIDE 20 MG INJ ONE (12:30)
[2017-05-09] MEDS ORDERED: hydrALAzine 20 MG INJ ONE (13:12)
[2017-05-09] MEDS ORDERED: ROCURONIUM 50 MG INJ ONE (13:29)
[2017-05-09] MEDS ORDERED: ETOMIDATE 20 MG INJ ONE (13:29)
[2017-05-09] MEDS ORDERED: LIDOCAINE 2% (SDV) 5 ML INJ ONE (13:29)
--- NOTE | 2017-05-09 14:02 | RADRPT ---
PROCEDURE: XR Chest. CLINICAL INDICATION: Shortness of breath. TECHNIQUE: Single frontal view. COMPARISON: 05/04/2017. FINDINGS: The endotracheal tube should be advanced approximately 3 cm as the tip is above the clavicle heads. Mediastinal drains are present. There is a right internal jugular vein Carroll-Angi catheter in satisfa ctory position. There are sternal wires and mediastinal clips. Mild atelectasis is present at the jackie ng bases. The lungs are otherwise clear. The heart size is normal. There is no pleural effusion. There is no pneumothorax. IMPRESSION: 1. The endotracheal tube should be advanced approximately 3 cm. 2. Postoperative changes. 3. Mild atelectasis at the lung bases. RPTAT: QQ .Nhan Wild MD, Date Time Electronically viewed and signed by .Nhan Wild MD, on 05/09/2017 14:02 .R/
--- NOTE | 2017-05-09 14:13 | CONS ---
Date/Time of Note Date/Time of Note DATE: 05/09/17 TIME: 14:12 Assessment/Plan Assessment/Plan Chief Complaint/Hosp Course IMP: 1.cad-mutivessel obstructive by [facility] 05/04 2.UNstable angina-secondary to cad as above 3. Coagulopathy-factor V11 def?: 4.HTN-borderline hotn today after receiving baseline anti-hypertensives 5.HL Recc: -Tele -serial ecg's -Continue BB/oral nitrates/ACEI and follow BP clsoely -For cabg today with coagulation factor to be given throughout surgery Problems: Consultation Date/Type/Reason Admit Date/Time May 04, 2017 at 15:44 Initial Consult Date 05/04/2017 Type of Consultation: cardiology Reason for Consultation angina/cad Referring Provider: DAYANARA SHABAZZ Exam/Review of Systems Vital Signs Vitals Vital Signs Date Time Temp Pulse Resp B/P Pulse Ox O2 Delivery O2 Flow Rate FiO2 05/09/17 06:44 97.6 87 16 150/76 98 05/08/17 16:00 Room Air Intake and Output 05/08/17 05/08/17 05/09/17 15:00 23:00 07:00 Intake Total 550 ml Balance 550 ml Exam Review of Systems: CONSTITUTIONAL: No fevers, chills. PULMONARY: No sob CARDIOVASCULAR: intermittent chest pain GASTROINTESTINAL: No nausea/vomiting. GENITOURINARY: No hematuria/dysuria. MUSCULOSKELETAL: No myagias/arthalgias. PSYCHIATRIC: The patient denies depression. NEUROLOGIC: No weakness Constitutional: alert, oriented Psych: no complaints Head: normocephalic ENMT: mucosa pink and moist Neck: jvd (9 cm water), supple Respiratory: clear to auscultation Cardiovascular: regular rate and rhythm Gastrointestinal: non-tender, soft Musculoskeletal: muscle tone (normal) Extremities: edema (none) Neurological: other (No focal deficits) Results Result Diagram: 05/09/17 0608 05/09/17 0608 Results 24 hrs Laboratory Tests Test 05/09/17 06:08 White Blood Count 6.7 Red Blood Count 4.49 L Hemoglobin 12.9 L Hematocrit 38.7 L Mean Corpuscular Volume 86.2 Mean Corpuscular Hemoglobin 28.7 L Mean Corpuscular Hemoglobin Concent 33.3 Red Cell Distribution Width 12.5 Platelet Count 188 Mean Platelet Volume 11.2 H Neutrophils % 69.6 Lymphocytes % 19.0 Monocytes % 6.4 Eosinophils % 4.3 Basophils % 0.4 Nucleated Red Blood Cells % 0.0 Neutrophils # 4.7 Lymphocytes # 1.3 Monocytes # 0.4 Eosinophils # 0.3 Basophils # 0.0 Nucleated Red Blood Cells # 0.0 Prothrombin Time 22.8 H Prothrombin Time Ratio 1.8 INR International Normalized Ratio 1.99 Sodium Level 141 Potassium Level 4.2 Chloride Level 105 Carbon Dioxide Level 28 Anion Gap 12 Blood Urea Nitrogen 19 Creatinine 1.03 Glucose Level 92 Calcium Level 8.8 Phosphorus Level 3.0 Magnesium Level 2.0 Albumin 3.9 Medications Medications Current Medications Acetaminophen (Tylenol Tab) 650 mg Q4H PRN PO NON-CARDIAC PAIN LEVEL (1-3) Last administered on 05/08/17 14:12; Admin Dose 650 MG; Start 05/04/17 at 14: 30 Al Hydrox/Mg Hydrox/Simethicone (Mag-Al Plus) 30 ml Q4H PRN PO GASTROINTESTINAL UPSET; Start 05/04/17 at 14:30 Ondansetron HCl (Zofran Inj) 4 mg Q4H PRN IV NAUSEA AND/OR VOMITING; Start at 14:30 Atorvastatin Calcium (Lipitor) 80 mg QHS PO Last administered on 05/08/17 20: 18; Admin Dose 80 MG; Start 05/04/17 at 21:00 Clopidogrel Bisulfate (plaVIX) 75 mg DAILY PO Last administered on 05/08/17 08:09; Admin Dose 75 MG; Start 05/05/17 at 09:00 Gabapentin (Neurontin) 300 mg BID PO Last administered on 05/08/17 20:18; Admin Dose 300 MG; Start 05/04/17 at 21:00 Isosorbide Mononitrate (Imdur) 30 mg DAILY PO Last administered on 05/08/17 08:09; Admin Dose 30 MG; Start 05/05/17 at 09:00 Fish Oil (Fish Oil) 2,000 mg BID PO Last administered on 05/08/17 20:18; Admin Dose 2,000 MG; Start 05/04/17 at 21:00 Nitroglycerin (Nitroglycerin (Sl Tab) 0.4 Mg) 1 tab Q5M PRN SL CHEST PAIN; Start 05/04/17 at 15:30 Morphine Sulfate (morphine) 2 mg Q4H PRN IV PAIN LEVEL 7-10; Start 05/04/17 at 15:30 Docusate Sodium (Colace) 100 mg Q12H PRN PO CONSTIPATION; Start 05/04/17 at 15 :30 Magnesium Hydroxide (Milk Of Mag) 30 ml DAILY PRN PO CONSTIPATION; Start 05/04 at 15:30 Pantoprazole (Protonix Tab) 40 mg DAILY@06 PO Last administered on 05/08/17 06:41; Admin Dose 40 MG; Start 05/05/17 at 06:00 Metoprolol Tartrate (Lopressor) 25 mg BID PO Last administered on 05/08/17 08 :09; Admin Dose 25 MG; Start 05/05/17 at 21:00 Lisinopril 5 mg 5 mg DAILY PO ; Start 05/09/17 at 09:00 Epinephrine 4 mg/ Dextrose 250 ml @ 0 mls/hr INTRA-OP IV ; Start 05/09/17 at 07 :30; Stop 05/09/17 at 23:59 Phenylephrine HCl 250 ml @ 0 mls/hr INTRA-OP IV ; Start 05/09/17 at 07:30; Stop 05/09/17 at 23:00 Insulin Human Regular/Sodium Chloride (Novolin-R/NS) 100 ml @ 0 mls/hr INTRA-OP IV ; Start 05/09/17 at 07:30; Stop 05/09/17 at 23:00 DAYANARA SHABAZZ May 09, 2017 14:13
[2017-05-09] MEDS ORDERED: NITROGLYCERIN 50 MG/D5W (PMX) 250 ML ONE (14:56)
[2017-05-09] MEDS ORDERED: MIDAZOLAM 1 MG/ML 2 ML INJ IV PRN (15:00)
[2017-05-09] MEDS ORDERED: ACETAMINOPHEN 650 MG SUPP PR PRN (15:00)
[2017-05-09] MEDS ORDERED: morphine 2 MG INJ IV PRN (15:00)
[2017-05-09] MEDS ORDERED: NITROGLYCERIN 50 MG/D5W (PMX) 250 ML IV SCH (15:00)
[2017-05-09] MEDS ORDERED: ONDANSETRON 4 MG INJ IV PRN (15:00)
[2017-05-09] MEDS ORDERED: DOPamine-D5W 1.6 MG/ML 250 ML IV SCH (15:00)
[2017-05-09] MEDS ORDERED: HYDROmorphONE 0.5 MG/0.5 ML SYG IV PRN (15:00)
[2017-05-09] MEDS ORDERED: DEXTROSE 50% 50 ML SYRINGE IV PRN ×2 (15:30)
[2017-05-09 15:32] LABS: AADO2 Arterial 375.5 mmHg (7.0-24.0); Arterial Base Excess -3.4 mmol/L (-3.0-3); Arterial COHb 0.2 % (0.0-3.0); Arterial Fraction of Oxyhgb 93.9 % (93.0-99.0); Arterial HCO3 21.9 mmol/L (22.0-26.0); Arterial MetHb 0.4 % (0.0-1.5); Arterial Total Hemglobin 9.9 g/dl (12.0-18.0); MODE VENT - AC
--- NOTE | 2017-05-09 15:34 | OPR ---
Date/Time of Note Date/Time of Note DATE: 05/09/17 TIME: 15:33 Operative Report Procedure Date: May 09, 2017 Preoperative Diagnosis CAD Postoperative Diagnosis CAD Operation/Procedure Performed CABG times 4 Surgeon see signature line Wireless Watcher Ruben Choudhary Anesthesia Type: general Estimated Blood Loss: none Transfusion none Specimen none Grafts/Implants none Tubes/Drains CT Complications none Procedure Description Dictated MARYAM TORRE MD May 09, 2017 15:34
[2017-05-09 15:35] LABS: MODE VENT - AC; MetHgb Mixed Venous 0.4 %; Mixed Venous COHb 0.3 %; Mixed Venous Fraction OxyHgb 54.1 %; Mixed Venous Oxygen Sat 54.5 mmHG (65.0-75.0); Mixed Venous Total Hemglobin 10.4 g/dl; Sample Type BLMV
[2017-05-09] MEDS: LISINOPRIL 5 MG TAB PO SCH (16:00)
[2017-05-09] MEDS: GABAPENTIN 300 MG CAP PO SCH ×2 (16:00→21:00)
[2017-05-09] MEDS: CEFAZOLIN 1 GM/50 ML (PMX) 50 ML IVPB SCH ×2 (16:00→23:15)
[2017-05-09] MEDS: CLOPIDOGREL 75 MG TAB PO SCH (16:00)
[2017-05-09] MEDS: ISOSORBIDE MONONITRATE(SR)30 MG TAB PO SCH (16:00)
[2017-05-09] MEDS: METOPROLOL 25 MG TAB PO SCH ×2 (16:00→21:00)
[2017-05-09] MEDS: FISH OIL 1,000 MG CAP PO SCH ×2 (16:00→21:00)
--- NOTE | 2017-05-09 16:02 | PN ---
Date/Time of Note Date/Time of Note DATE: 05/09/17 TIME: 15:57 Assessment/Plan VTE Prophylaxis VTE Prophylaxis Intervention: SCD's Lines/Catheters IV C[facility]ter Type (from [facility]): A Line Urinary Cath still in place: No Assessment/Plan Chief Complaint/Hosp Course Assessment/Plan 1. 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 use parvin 7 in case of bleed. - PTT Mixing study showed correction - No av bleeding appreciated at this time and will continue to monitor 2. CAD s/p stenting in 2006 - 4x CABG done 05/09/17 -CT surgery recs appreciated -medications and acute surgical issues to be managed by CT surgery. 3. Hypothyroidism - TSH within nl limits - continue home dose of levothyroxine for now 4. Disposition -CT surgery to manage for now -extubate when able -DISPO when ready and stable. Problems: Subjective 24 Hr Interval Summary Free Text/Dictation patient returns from surgery. still intubated, sedated with morphine, is easily awakened and tries to remove tube. Exam/Review of Systems Vital Signs Vitals Vital Signs Date Time Temp Pulse Resp B/P Pulse Ox O2 Delivery O2 Flow Rate FiO2 05/09/17 15:35 117 23 96 70 05/09/17 06:44 97.6 150/76 05/08/17 16:00 Room Air Intake and Output 05/08/17 05/08/17 05/09/17 15:00 23:00 07:00 Intake Total 550 ml Balance 550 ml Exam Constitutional: alert, sedated, intubated Head: atraumatic, normocephalic Eyes: EOMI, PERRL, nl sclera Neck: non-tender, supple Respiratory: coarse to auscultation bilaterally. Cardiovascular: tachycardic, no obvious murmurs, midline incision. CDI Gastrointestinal: bowel sounds, non distended Musculoskeletal: nl extremities to inspection Extremities: normal pulses, No clubbing, No cyanosis, Neurological: [employer] TE[employer] II-XII intact, nl mental status, nl speech Skin: nl turgor Results Result Diagram: 05/09/17 0608 05/09/17 0608 Results 24 hrs Laboratory Tests Test 05/09/17 06:08 05/09/17 14:47 05/09/17 15:25 05/09/17 15:26 White Blood Count 6.7 Red Blood Count 4.49 L Hemoglobin 12.9 L Hematocrit 38.7 L Mean Corpuscular Volume 86.2 Mean Corpuscular Hemoglobin 28.7 L Mean Corpuscular Hemoglobin Concent 33.3 Red Cell Distribution Width 12.5 Platelet Count 188 Mean Platelet Volume 11.2 H Neutrophils % 69.6 Lymphocytes % 19.0 Monocytes % 6.4 Eosinophils % 4.3 Basophils % 0.4 Nucleated Red Blood Cells % 0.0 Neutrophils # 4.7 Lymphocytes # 1.3 Monocytes # 0.4 Eosinophils # 0.3 Basophils # 0.0 Nucleated Red Blood Cells # 0.0 Prothrombin Time 22.8 H Prothrombin Time Ratio 1.8 INR International Normalized Ratio 1.99 Sodium Level 141 Potassium Level 4.2 Chloride Level 105 Carbon Dioxide Level 28 Anion Gap 12 Blood Urea Nitrogen 19 Creatinine 1.03 Glucose Level 92 Calcium Level 8.8 Phosphorus Level 3.0 Magnesium Level 2.0 Albumin 3.9 Bedside Glucose 97 Blood Gas Specimen Source Blood arterial BLMV Arterial Blood Date Drawn 05/09/2017 3:20:41 PM 05/09/2017 3:25:11 PM Arterial Blood pH (Temp corrected) 7.353 Arterial Blood pCO2 (Temp correct) 40.3 Arterial Blood pO2 (Temp corrected) 80.3 Arterial Blood HCO3 21.9 L Arterial Blood Base Excess -3.4 L Arterial Blood Oxygen Saturation 94.5 L Gasper Test N/A N/A Arterial Blood Gas Puncture Site A-Line PUL ART LINE Arterial Blood Carboxyhemoglobin 0.2 Arterial Blood Methemoglobin 0.4 Blood Gas A-a O2 Differential 375.5 H Oxyhemoglobin Percent 93.9 Total Hemoglobin 9.9 L Blood Gas Temperature 37.0 37.0 Blood Gas Respiration Rate 14.0 14.0 Blood Gas Actual Respiration Rate 18 18 Blood Gas Modality VENT - AC VENT - AC FiO2 70.0 70.0 Blood Gas Tidal Volume 500.0 500.0 Blood Gas Low PEEP Setting 5.0 5.0 Blood Gas Notified Whom LILI PEARSON Blood Gas Notified Time 05/09/2017 3:32:15 PM 05/09/2017 3:35:46 PM Mixed Venous Blood PO2 30.0 Mixed Venous Blood O2 Saturation 54.5 L Mixed Venous Blood Total Hemoglobin 10.4 Mixed Venous Blood Oxyhemoglobin 54.1 Mixed Venous Bld Carboxyhemoglobin 0.3 Mixed Venous Blood Methemoglobin 0.4 Medications Medications Current Medications Acetaminophen (Tylenol Tab) 650 mg Q4H PRN PO NON-CARDIAC PAIN LEVEL (1-3) Last administered on 05/08/17 14:12; Admin Dose 650 MG; Start 05/04/17 at 14: 30 Al Hydrox/Mg Hydrox/Simethicone (Mag-Al Plus) 30 ml Q4H PRN PO GASTROINTESTINAL UPSET; Start 05/04/17 at 14:30 Ondansetron HCl (Zofran Inj) 4 mg Q4H PRN IV NAUSEA AND/OR VOMITING; Start at 14:30 Atorvastatin Calcium (Lipitor) 80 mg QHS PO Last administered on 05/08/17 20: 18; Admin Dose 80 MG; Start 05/04/17 at 21:00 Clopidogrel Bisulfate (plaVIX) 75 mg DAILY PO Last administered on 05/08/17 08:09; Admin Dose 75 MG; Start 05/05/17 at 09:00 Gabapentin (Neurontin) 300 mg BID PO Last administered on 05/08/17 20:18; Admin Dose 300 MG; Start 05/04/17 at 21:00 Isosorbide Mononitrate (Imdur) 30 mg DAILY PO Last administered on 05/08/17 08:09; Admin Dose 30 MG; Start 05/05/17 at 09:00 Fish Oil (Fish Oil) 2,000 mg BID PO Last administered on 05/08/17 20:18; Admin Dose 2,000 MG; Start 05/04/17 at 21:00 Nitroglycerin (Nitroglycerin (Sl Tab) 0.4 Mg) 1 tab Q5M PRN SL CHEST PAIN; Start 05/04/17 at 15:30 Morphine Sulfate (morphine) 2 mg Q4H PRN IV PAIN LEVEL 7-10; Start 05/04/17 at 15:30 Docusate Sodium (Colace) 100 mg Q12H PRN PO CONSTIPATION; Start 05/04/17 at 15 :30 Magnesium Hydroxide (Milk Of Mag) 30 ml DAILY PRN PO CONSTIPATION; Start 05/04 at 15:30 Pantoprazole (Protonix Tab) 40 mg DAILY@06 PO Last administered on 05/08/17 06:41; Admin Dose 40 MG; Start 05/05/17 at 06:00 Metoprolol Tartrate (Lopressor) 25 mg BID PO Last administered on 05/08/17t 08 :09; Admin Dose 25 MG; Start 05/05/17 at 21:00 Lisinopril 5 mg 5 mg DAILY PO ; Start 05/09/17 at 09:00 Epinephrine 4 mg/ Dextrose 250 ml @ 0 mls/hr INTRA-OP IV ; Start 05/09/17 at 07 :30; Stop 05/09/17 at 23:59 Phenylephrine HCl 250 ml @ 0 mls/hr INTRA-OP IV ; Start 05/09/17 at 07:30; Stop 05/09/17 at 23:00 Potassium Chloride 40 meq/ Calcium Chloride 1 gm/Dextrose/ Sodium Chloride 1, 030 ml @ 60 mls/hr [id number] IV ; Start 05/09/17 at 14:57 Cefazolin Sodium (Ancef 1 Gm/50 ml (Pmx)) 50 ml @ 100 mls/hr Q8H IVPB ; Start 05/09/17 at 15:00; Stop 05/10/17 at 07:29 Hydromorphone HCl (Dilaudid) 0.2 mg Q15M PRN IV PAIN LEVEL 1-5; Start at 15:00 Hydromorphone HCl (Dilaudid) 0.4 mg Q15M PRN IV PAIN LEVEL 6-10; Start at 15:00 Morphine Sulfate (morphine) 2 mg Q2 PRN IV PAIN LEVEL 1-5; Start 05/09/17 at 15:00 Morphine Sulfate (morphine) 4 mg Q2 PRN IV PAIN LEVEL 6-10; Start 05/09/17 at 15:00 Ondansetron HCl (Zofran Inj) 2 mg ONCE PRN IV NAUSEA AND/OR VOMITING; Start at 15:00 Midazolam HCl (Versed) 1 mg Q2H PRN IV AGITATION; Start 05/09/17 at 15:00 Famotidine (Pepcid Iv) 20 mg BID@08,20 IV ; Start 05/09/17 at 20:00 Acetaminophen (Tylenol Tab) 650 mg Q3H PRN PO ELEVATED TEMPERATURE; Start at 15:00 Acetaminophen (Tylenol Supp) 650 mg Q3H PRN [place] ELEVATED TEMPERATURE; Start at 15:00 Diagnostic Test (Pha) (Accu-Chek) 1 ea Q1H XX ; Start 05/09/17 at 15:30 Dextrose (D50w Syringe) 25 ml Q15M PRN IV Till BS 80 mg/dL or above x2; Start 05/09/17 at 15:30 Dextrose (D50w Syringe) 50 ml Q15M PRN IV Till BS 80 mg/dL or above x2; Start 05/09/17 at 15:30 JESUSITA LACEY May 09, 2017 16:02
[2017-05-09] MEDS: ACCU-CHEK XX SCH ×8 (16:11→22:30)
[2017-05-09 16:20] LABS: BASOPHILS % 0.1 % (0.0-2.0); EOSINOPHILS % 0.2 % (0.0-7.0); HEMATOCRIT 28.3 % (42.0-52.0); HEMOGLOBIN 9.3 g/dl (14.0-18.0); LYMPHOCYTES % 15.4 % (15.0-51.0); MEAN CORPUSCULAR HEMOGLOBIN 28.4 pg (29.0-33.0); MEAN CORPUSCULAR HGB CONC 32.9 g/dl (32.0-37.0); MEAN CORPUSCULAR VOLUME 86.3 fl (82.0-101.0); MEAN PLATELET VOLUME 10.8 fl (7.4-10.4); MONOCYTE # 0.9 10^3/ul (0.3-0.9); MONOCYTES % 7.3 % (0.0-11.0); NEUTROPHIL # 9.8 10^3/ul (1.6-7.5); NEUTROPHILS % 76.5 % (39.0-77.0); PLATELET COUNT 227 10^3/UL (140-415); RED BLOOD COUNT 3.28 10^6/ul (4.70-6.10); RED CELL DISTRIBUTION WIDTH 12.8 % (11.5-14.5); WHITE BLOOD COUNT 12.8 10^3/ul (4.8-10.8)
[2017-05-09] MEDS: POTASSIUM CHLORIDE 40 MEQ, CALCIUM CHLORIDE 10% 1 GM in DEXTROSE 5%-0.225% NACL 1,000 ML IV SCH (16:26)
[2017-05-09] MEDS: INSULIN HUMAN REGULAR 100 UNIT in SOD CHLORIDE 0.9% 99 ML IV SCH (17:23)
[2017-05-09] MEDS: POTASSIUM CHLORIDE 50 ML IVPB PRN ×5 (17:29→23:53)
[2017-05-09] MEDS: MAGNESIUM SULFATE 1 GM/D5W 100 ML IVPB PRN ×2 (17:30→18:08)
[2017-05-09] MEDS: morphine 2 MG INJ IV PRN (20:33)
[2017-05-09] MEDS: FAMOTIDINE 20 MG INJ IV SCH (20:33)
[2017-05-09] MEDS: ATORVASTATIN 80 MG TAB PO SCH (21:00)
--- NOTE | 2017-05-09 21:18 | CONS ---
Date/Time of Note Date/Time of Note DATE: 05/09/17 TIME: 21:07 Assessment/Plan Assessment/Plan Chief Complaint/Hosp Course #Coagulopathy -Per the patient and his family, pt has factor VII deficiency -pt was to be given Parvin 7 2mg intraoperatively -will need to confer with pharmacy as to whether another dose was given -give patient appears stable I would not given another dose at this time unless there is a concern for post op bleed #Multivessel disease CAD -s/p CABG -continue Beta Blockade -meds per cardiology #HTN -BP ok -continue strict blood pressure control per cardiology Problems: Consultation Date/Type/Reason Admit Date/Time May 04, 2017 at 15:44 Initial Consult Date 05/05/17 Type of Consultation: hematology Reason for Consultation coagulopathy Referring Provider: DAYANARA SHABAZZ 24 HR Interval Summary Free Text/Dictation s/p CABG x 4 pt received 1 dose of parvin 7 intraoperatively. currently no evidence of bleeding.pt is doing well post op Exam/Review of Systems Vital Signs Vitals Vital Signs Date Time Temp Pulse Resp B/P Pulse Ox O2 Delivery O2 Flow Rate FiO2 05/09/17 19:44 106 25 100 50 05/09/17 18:45 101.4 113/68 05/08/17 16:00 Room Air Intake and Output 05/08/17 05/08/17 05/09/17 15:00 23:00 07:00 Intake Total 550 ml Balance 550 ml Exam Constitutional: alert, oriented Psych: no complaints Head: normocephalic Eyes: nl conjunctiva ENMT: nl external ears & nose Neck: non-tender, supple Respiratory: clear to auscultation Cardiovascular: other (sternotomy scar), regular rate and rhythm Gastrointestinal: soft Musculoskeletal: nl extremities to inspection, nl gait and stance Extremities: normal pulses Results Result Diagram: 05/09/17 1604 05/09/17 1605 Results 24 hrs Laboratory Tests Test 05/09/17 06:08 05/09/17 14:47 05/09/17 15:25 05/09/17 15:26 White Blood Count 6.7 Red Blood Count 4.49 L Hemoglobin 12.9 L Hematocrit 38.7 L Mean Corpuscular Volume 86.2 Mean Corpuscular Hemoglobin 28.7 L Mean Corpuscular Hemoglobin Concent 33.3 Red Cell Distribution Width 12.5 Platelet Count 188 Mean Platelet Volume 11.2 H Neutrophils % 69.6 Lymphocytes % 19.0 Monocytes % 6.4 Eosinophils % 4.3 Basophils % 0.4 Nucleated Red Blood Cells % 0.0 Neutrophils # 4.7 Lymphocytes # 1.3 Monocytes # 0.4 Eosinophils # 0.3 Basophils # 0.0 Nucleated Red Blood Cells # 0.0 Prothrombin Time 22.8 H Prothrombin Time Ratio 1.8 INR International Normalized Ratio 1.99 Sodium Level 141 Potassium Level 4.2 Chloride Level 105 Carbon Dioxide Level 28 Anion Gap 12 Blood Urea Nitrogen 19 Creatinine 1.03 Glucose Level 92 Calcium Level 8.8 Phosphorus Level 3.0 Magnesium Level 2.0 Albumin 3.9 Bedside Glucose 97 Blood Gas Specimen Source Blood arterial BLMV Arterial Blood Date Drawn 05/09/2017 3:20:41 PM 05/09/2017 3:25:11 PM Arterial Blood pH (Temp corrected) 7.353 Arterial Blood pCO2 (Temp correct) 40.3 Arterial Blood pO2 (Temp corrected) 80.3 Arterial Blood HCO3 21.9 L Arterial Blood Base Excess -3.4 L Arterial Blood Oxygen Saturation 94.5 L Gasper Test N/A N/A Arterial Blood Gas Puncture Site A-Line PUL ART LINE Arterial Blood Carboxyhemoglobin 0.2 Arterial Blood Methemoglobin 0.4 Blood Gas A-a O2 Differential 375.5 H Oxyhemoglobin Percent 93.9 Total Hemoglobin 9.9 L Blood Gas Temperature 37.0 37.0 Blood Gas Respiration Rate 14.0 14.0 Blood Gas Actual Respiration Rate 18 18 Blood Gas Modality VENT - AC VENT - AC FiO2 70.0 70.0 Blood Gas Tidal Volume 500.0 500.0 Blood Gas Low PEEP Setting 5.0 5.0 Blood Gas Notified Whom LILI PEARSON Blood Gas Notified Time 05/09/2017 3:32:15 PM 05/09/2017 3:35:46 PM Mixed Venous Blood PO2 30.0 Mixed Venous Blood O2 Saturation 54.5 L Mixed Venous Blood Total Hemoglobin 10.4 Mixed Venous Blood Oxyhemoglobin 54.1 Mixed Venous Bld Carboxyhemoglobin 0.3 Mixed Venous Blood Methemoglobin 0.4 Test 05/09/17 16:04 05/09/17 16:05 05/09/17 16:06 05/09/17 17:25 White Blood Count 12.8 #H Red Blood Count 3.28 #L Hemoglobin 9.3 #L Hematocrit 28.3 #L Mean Corpuscular Volume 86.3 Mean Corpuscular Hemoglobin 28.4 L Mean Corpuscular Hemoglobin Concent 32.9 Red Cell Distribution Width 12.8 Platelet Count 227 # Mean Platelet Volume 10.8 H Neutrophils % 76.5 Lymphocytes % 15.4 Monocytes % 7.3 Eosinophils % 0.2 Basophils % 0.1 Nucleated Red Blood Cells % 0.0 Neutrophils # 9.8 H Lymphocytes # 2.0 Monocytes # 0.9 Eosinophils # 0.0 Basophils # 0.0 Nucleated Red Blood Cells # 0.0 Potassium Level 3.5 Magnesium Level 1.6 L Bedside Glucose 155 141 Test 05/09/17 18:14 05/09/17 19:03 05/09/17 20:05 Bedside Glucose 191 204 166 Medications Medications Current Medications Acetaminophen (Tylenol Tab) 650 mg Q4H PRN PO NON-CARDIAC PAIN LEVEL (1-3) Last administered on 05/08/17 14:12; Admin Dose 650 MG; Start 05/04/17 at 14: 30 Al Hydrox/Mg Hydrox/Simethicone (Mag-Al Plus) 30 ml Q4H PRN PO GASTROINTESTINAL UPSET; Start 05/04/17 at 14:30 Ondansetron HCl (Zofran Inj) 4 mg Q4H PRN IV NAUSEA AND/OR VOMITING; Start at 14:30 Atorvastatin Calcium (Lipitor) 80 mg QHS PO Last administered on 05/08/17 20: 18; Admin Dose 80 MG; Start 05/04/17 at 21:00 Clopidogrel Bisulfate (plaVIX) 75 mg DAILY PO Last administered on 05/08/17 08:09; Admin Dose 75 MG; Start 05/05/17 at 09:00 Gabapentin (Neurontin) 300 mg BID PO Last administered on 05/08/17 20:18; Admin Dose 300 MG; Start 05/04/17 at 21:00 Isosorbide Mononitrate (Imdur) 30 mg DAILY PO Last administered on 05/08/17 08:09; Admin Dose 30 MG; Start 05/05/17 at 09:00 Fish Oil (Fish Oil) 2,000 mg BID PO Last administered on 05/08/17 20:18; Admin Dose 2,000 MG; Start 05/04/17 at 21:00 Nitroglycerin (Nitroglycerin (Sl Tab) 0.4 Mg) 1 tab Q5M PRN SL CHEST PAIN; Start 05/04/17 at 15:30 Morphine Sulfate (morphine) 2 mg Q4H PRN IV PAIN LEVEL 7-10 Last administered on 05/09/17 16:17; Admin Dose 2 MG; Start 05/04/17 at 15:30 Docusate Sodium (Colace) 100 mg Q12H PRN PO CONSTIPATION; Start 05/04/17 at 15 :30 Magnesium Hydroxide (Milk Of Mag) 30 ml DAILY PRN PO CONSTIPATION; Start 05/04 at 15:30 Pantoprazole (Protonix Tab) 40 mg DAILY@06 PO Last administered on 05/08/17 06:41; Admin Dose 40 MG; Start 05/05/17 at 06:00 Metoprolol Tartrate (Lopressor) 25 mg BID PO Last administered on 05/08/17 08 :09; Admin Dose 25 MG; Start 05/05/17 at 21:00 Lisinopril 5 mg 5 mg DAILY PO ; Start 05/09/17 at 09:00 Epinephrine 4 mg/ Dextrose 250 ml @ 0 mls/hr INTRA-OP IV ; Start 05/09/17 at 07 :30; Stop 05/09/17 at 23:59 Phenylephrine HCl 250 ml @ 0 mls/hr INTRA-OP IV ; Start 05/09/17 at 07:30; Stop 05/09/17 at 23:00 Potassium Chloride 40 meq/ Calcium Chloride 1 gm/Dextrose/ Sodium Chloride 1, 030 ml @ 60 mls/hr [id number] IV Last administered on 05/09/17 16:26; Admin Dose 60 MLS/HR; Start 05/09/17 at 14:57 Cefazolin Sodium (Ancef 1 Gm/50 ml (Pmx)) 50 ml @ 100 mls/hr Q8H IVPB ; Start 05/09/17 at 15:00; Stop 05/10/17 at 07:29 Hydromorphone HCl (Dilaudid) 0.2 mg Q15M PRN IV PAIN LEVEL 1-5; Start at 15:00 Hydromorphone HCl (Dilaudid) 0.4 mg Q15M PRN IV PAIN LEVEL 6-10; Start at 15:00 Morphine Sulfate (morphine) 2 mg Q2 PRN IV PAIN LEVEL 1-5; Start 05/09/17 at 15:00 Morphine Sulfate (morphine) 4 mg Q2 PRN IV PAIN LEVEL 6-10; Start 05/09/17 at 15:00 Ondansetron HCl (Zofran Inj) 2 mg ONCE PRN IV NAUSEA AND/OR VOMITING; Start at 15:00 Midazolam HCl (Versed) 1 mg Q2H PRN IV AGITATION; Start 05/09/17 at 15:00 Famotidine (Pepcid Iv) 20 mg BID@08,20 IV ; Start 05/09/17 at 20:00 Acetaminophen (Tylenol Tab) 650 mg Q3H PRN PO ELEVATED TEMPERATURE; Start at 15:00 Acetaminophen (Tylenol Supp) 650 mg Q3H PRN [place] ELEVATED TEMPERATURE Last administered on 05/09/17 18:46; Admin Dose 650 MG; Start 05/09/17 at 15:00 Diagnostic Test (Pha) (Accu-Chek) 1 ea Q1H XX Last administered on 05/09/17 20:05; Admin Dose 1 EA; Start 05/09/17 at 15:30 Dextrose (D50w Syringe) 25 ml Q15M PRN IV Till BS 80 mg/dL or above x2; Start 05/09/17 at 15:30 Dextrose (D50w Syringe) 50 ml Q15M PRN IV Till BS 80 mg/dL or above x2; Start 05/09/17 at 15:30 KERRY WILLS M.D. May 09, 2017 21:18
[2017-05-09 22:09] LABS: ABNORMAL IP MESSAGE 1; BASOPHILS % 0.3 % (0.0-2.0); EOSINOPHILS # 0.1 10^3/ul (0.0-0.5); EOSINOPHILS % 1.2 % (0.0-7.0); HEMATOCRIT 27.6 % (42.0-52.0); HEMOGLOBIN 9.1 g/dl (14.0-18.0); LYMPHOCYTES # 0.4 10^3/ul (0.8-2.9); LYMPHOCYTES % 3.9 % (15.0-51.0); MEAN CORPUSCULAR HEMOGLOBIN 28.9 pg (29.0-33.0); MEAN CORPUSCULAR VOLUME 87.6 fl (82.0-101.0); MEAN PLATELET VOLUME 11.4 fl (7.4-10.4); MONOCYTE # 0.8 10^3/ul (0.3-0.9); MONOCYTES % 7.9 % (0.0-11.0); NEUTROPHIL # 8.6 10^3/ul (1.6-7.5); NEUTROPHILS % 86.1 % (39.0-77.0); PLATELET COUNT 174 10^3/UL (140-415); POSITIVE DIFF @See below; RED BLOOD COUNT 3.15 10^6/ul (4.70-6.10); RED CELL DISTRIBUTION WIDTH 12.9 % (11.5-14.5)
[2017-05-09 22:26] LABS: INR 1.28; PROTIME 16.1 Sec (12.2-14.2); PT RATIO 1.3
[2017-05-09 22:36] LABS: CALCIUM 8.8 mg/dl (8.4-10.2); CREATININE 1.24 mg/dl (0.61-1.24); MAGNESIUM 2.1 mg/dl (1.7-2.5); POTASSIUM 3.7 mmol/L (3.5-5.1)
[2017-05-10] VITALS (56 sets, daily range): BP systolic 98–146; BP diastolic 59–95; PULSE 95–116; RESP 15–30; TEMP 99.4–100.2
[2017-05-10] MEDS: ACCU-CHEK XX SCH ×24 (00:22→22:30)
[2017-05-10] MEDS: POTASSIUM CHLORIDE 50 ML IVPB PRN ×2 (01:02→22:48)
[2017-05-10] MEDS: morphine 2 MG INJ IV PRN ×2 (04:12→07:09)
[2017-05-10 05:16] LABS: ABNORMAL IP MESSAGE 1; BASOPHILS % 0.1 % (0.0-2.0); EOSINOPHILS % 0.4 % (0.0-7.0); HEMATOCRIT 28.3 % (42.0-52.0); HEMOGLOBIN 9.2 g/dl (14.0-18.0); LYMPHOCYTES # 0.4 10^3/ul (0.8-2.9); LYMPHOCYTES % 5.3 % (15.0-51.0); MEAN CORPUSCULAR HEMOGLOBIN 28.5 pg (29.0-33.0); MEAN CORPUSCULAR HGB CONC 32.5 g/dl (32.0-37.0); MEAN CORPUSCULAR VOLUME 87.6 fl (82.0-101.0); MONOCYTE # 0.7 10^3/ul (0.3-0.9); MONOCYTES % 9.7 % (0.0-11.0); NEUTROPHIL # 5.7 10^3/ul (1.6-7.5); NEUTROPHILS % 84.1 % (39.0-77.0); PLATELET COUNT 173 10^3/UL (140-415); POSITIVE DIFF @See below; RED BLOOD COUNT 3.23 10^6/ul (4.70-6.10); WHITE BLOOD COUNT 6.8 10^3/ul (4.8-10.8)
[2017-05-10 05:42] LABS: INR 1.84; PARTIAL THROMBOPLASTIN TIME 32.9 Sec (25.0-35.0); PROTIME 21.4 Sec (12.2-14.2); PT RATIO 1.7
[2017-05-10 05:52] LABS: CALCIUM 9.1 mg/dl (8.4-10.2); CREATININE 1.12 mg/dl (0.61-1.24); MAGNESIUM 1.9 mg/dl (1.7-2.5)
[2017-05-10 06:09] LABS: AADO2 Arterial 57.5 mmHg (7.0-24.0); Arterial Base Excess 0.5 mmol/L (-3.0-3); Arterial COHb 0.2 % (0.0-3.0); Arterial Fraction of Oxyhgb 95.8 % (93.0-99.0); Arterial HCO3 24.9 mmol/L (22.0-26.0); Arterial MetHb 0.2 % (0.0-1.5); Arterial Total Hemglobin 9.8 g/dl (12.0-18.0); MODE NASAL CANNULA
[2017-05-10] MEDS: PANTOPRAZOLE (EC) 40 MG TAB PO SCH (06:29)
[2017-05-10] MEDS: CEFAZOLIN 1 GM/50 ML (PMX) 50 ML IVPB SCH (06:36)
[2017-05-10] MEDS: LEVOTHYROXINE 100 MCG TAB PO SCH (08:27)
[2017-05-10] MEDS: FAMOTIDINE 20 MG INJ IV SCH ×2 (08:27→19:39)
[2017-05-10] MEDS: POTASSIUM CHLORIDE 40 MEQ, CALCIUM CHLORIDE 10% 1 GM in DEXTROSE 5%-0.225% NACL 1,000 ML IV SCH (08:28)
--- NOTE | 2017-05-10 09:42 | OPR ---
DATE OF OPERATION: PREOPERATIVE DIAGNOSIS: Coronary artery disease. POSTOPERATIVE DIAGNOSIS: Coronary artery disease. PROCEDURE: 1. Coronary artery bypass grafting, left internal mammary artery to left anterior descending. 2. Saphenous vein graft to the obtuse marginal branch of the circumflex. 3. Saphenous vein graft to the diagonal branch of the left anterior descending. 4. Saphenous vein graft to the posterior descending artery. 5. Thymectomy. 6. Coronary endarterectomy left anterior descending. 7. Endoscopic saphenous vein harvest from the left lower extremity. SURGEON: Dr. Guzman. VALIDATION MANAGER: Ruben Choudhary. SECOND VALIDATION MANAGER: Jess. INFORMED CONSENT: Risks, benefits, complications, alternative therapies, high-risk nature of the op eration were fully explained to the patient and the family consent obtained. OPERATIVE TECHNIQUE: The patient was placed in supine position, prepped and draped in usual sterile fashion. A time-out was called. Antibiotic were given and I started. Saphenous vein was harveste d from the left thigh using endoscopic techniques. The sternum was opened in the mid aspect. Left internal mammary artery was harvested using electrocautery and titanium clips. Thymectomy was done to gain access into the aorta. Pericardium opened, patient fully heparinized. Cannulation sutures of 3-0 Prolene with pledgets applied to distal ascending aorta, mid ascending aorta, body of the rig ht atrium, and right atrial appendage. After adequate documentation of ACT, aorta was cannulated fo llowed by 2-stage venous cannula, antegrade and retrograde cardioplegia cannula. The heart was plac ed on cardiopulmonary bypass. Crossclamp applied. Heart was arrested using anterior and retrograde cardioplegia given every 15-20 minutes. We also slush to the surface of the heart. We proceeded w ith the above anastomosis. Saphenous vein was used in the reverse fashion in a natural Y manner for the diagonal branch of the LAD and obtuse marginal branch of the circumflex. A single saphenous ve in was used for the PDA and the mammary for LAD. All distal anastomoses were done to 8 mm longitudi nal arteriotomies in an end-to-side fashion, 7-0 Prolene continuous suture technique. Proximal 2 an astomoses were done on the same Crossclamp, 4.5 mm punch, 6-0 Prolene in continuous suture technique . Cardioplegia was carried out every 15-20 minutes, antegrade and retrograde and through the vein g rafts with also topical slush to the surface of heart, when the Cross clamp was applied. Cross clamp was then removed heart. The heart and the grafts de-aired. We came off cardiopulmonary bypass with minimal support. Protamine given, cannulas removed, sutures tied. Two mediastinal k[address] st tubes were placed, brought out through a lower stab wound, secured to skin using silk sutures. T he sternum was closed using the cable system x4 [id number]. The linea alba and the deep tissue s were irrigated using antibiotic solution, closed in 2 layers of #1 Vicryl suture for the deep, 2-0 Vicryl suture for subcutaneous, and 4-0 Monocryl suture for running subcuticular skin closure. The leg was closed in a similar fashion. Patient tolerated procedure well. Dictated By: MARYAM BYRD/LIANNE Conf#: [id number] DID#: [id number]
--- NOTE | 2017-05-10 09:58 | CONS ---
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 line to d/c - chest tube still drains. 2.UNstable angina-secondary to cad as above - better now. 3. Coagulopathy-factor V11 def?- primary team follows - H/H stable. 4.HTN-borderline hotn today after receiving baseline anti-hypertensives - stable 5.HL Consultation Date/Type/Reason Admit Date/Time May 04, 2017 at 15:44 Initial Consult Date 05/05/17 Type of Consultation: hematology Referring Provider: DAYANARA SHABAZZ 24 HR Interval Summary Free Text/Dictation s/p CABG, recovering well, a. line to d/c - chest tube still drains. ROS: No fever, no chills, no nausea, no vomiting, no diarrhea/constipation No recent weight changes No chest pain, no PND, no orthopnea No dizziness, blurred vision No thirst, no heat or cold intolerance Exam/Review of Systems Vital Signs Vitals Vital Signs Date Time Temp Pulse Resp B/P Pulse Ox O2 Delivery O2 Flow Rate FiO2 05/10/17 08:00 103 05/10/17 07:00 100.0 23 122/78 96 05/09/17 23:37 2.0 05/09/17 20:05 Nasal Cannula 05/09/17 20:00 50 Intake and Output 05/09/17 05/09/17 05/10/17 15:00 23:00 07:00 Intake Total 3464 ml 774 ml 1044.5 ml Output Total 4340 ml 982 ml 660 ml Balance -876 ml -208 ml 384.5 ml Exam General: WN/WD/NAD, AOx 2-3 HEENT: Unicetric/atraumatic/EOMI ( follow commands) NECK: JVD elevated, no thyromegaly Lymph: no lymphadenopathy HEART: regular with no S3, II/ systolic murmur at apex, no RUB LUNGS: Coarse sounds ABD: soft, NT, ND, +BS : Intact Neuro: non focal SKIN: chronic changes EXT: trace edema Results Result Diagram: 05/10/17 0345 05/10/17 034 Results 24 hrs Laboratory Tests Test 05/09/17 14:47 05/09/17 15:25 05/09/17 15:26 05/09/17 16:04 Bedside Glucose 97 Blood Gas Specimen Source Blood arterial BLMV Arterial Blood Date Drawn 05/09/2017 3:20:41 PM 05/09/2017 3:25:11 PM Arterial Blood pH (Temp corrected) 7.353 Arterial Blood pCO2 (Temp correct) 40.3 Arterial Blood pO2 (Temp corrected) 80.3 Arterial Blood HCO3 21.9 L Arterial Blood Base Excess -3.4 L Arterial Blood Oxygen Saturation 94.5 L Gasper Test N/A N/A Arterial Blood Gas Puncture Site A-Line PUL ART LINE Arterial Blood Carboxyhemoglobin 0.2 Arterial Blood Methemoglobin 0.4 Blood Gas A-a O2 Differential 375.5 H Oxyhemoglobin Percent 93.9 Total Hemoglobin 9.9 L Blood Gas Temperature 37.0 37.0 Blood Gas Respiration Rate 14.0 14.0 Blood Gas Actual Respiration Rate 18 18 Blood Gas Modality VENT - AC VENT - AC FiO2 70.0 70.0 Blood Gas Tidal Volume 500.0 500.0 Blood Gas Low PEEP Setting 5.0 5.0 Blood Gas Notified Whom JLD JLD Blood Gas Notified Time 05/09/2017 3:32:15 PM 05/09/2017 3:35:46 PM Mixed Venous Blood PO2 30.0 Mixed Venous Blood O2 Saturation 54.5 L Mixed Venous Blood Total Hemoglobin 10.4 Mixed Venous Blood Oxyhemoglobin 54.1 Mixed Venous Bld Carboxyhemoglobin 0.3 Mixed Venous Blood Methemoglobin 0.4 White Blood Count 12.8 #H Red Blood Count 3.28 #L Hemoglobin 9.3 #L Hematocrit 28.3 #L Mean Corpuscular Volume 86.3 Mean Corpuscular Hemoglobin 28.4 L Mean Corpuscular Hemoglobin Concent 32.9 Red Cell Distribution Width 12.8 Platelet Count 227 # Mean Platelet Volume 10.8 H Neutrophils % 76.5 Lymphocytes % 15.4 Monocytes % 7.3 Eosinophils % 0.2 Basophils % 0.1 Nucleated Red Blood Cells % 0.0 Neutrophils # 9.8 H Lymphocytes # 2.0 Monocytes # 0.9 Eosinophils # 0.0 Basophils # 0.0 Nucleated Red Blood Cells # 0.0 Test 05/09/17 16:05 05/09/17 16:06 05/09/17 17:25 05/09/17 18:14 Potassium Level 3.5 Magnesium Level 1.6 L Bedside Glucose 155 141 191 Test 05/09/17 19:03 05/09/17 20:05 05/09/17 21:08 05/09/17 21:39 Bedside Glucose 204 166 154 White Blood Count 10.0 # Red Blood Count 3.15 L Hemoglobin 9.1 L Hematocrit 27.6 L Mean Corpuscular Volume 87.6 Mean Corpuscular Hemoglobin 28.9 L Mean Corpuscular Hemoglobin Concent 33.0 Red Cell Distribution Width 12.9 Platelet Count 174 # Mean Platelet Volume 11.4 H Neutrophils % 86.1 H Lymphocytes % 3.9 L Monocytes % 7.9 Eosinophils % 1.2 Basophils % 0.3 Nucleated Red Blood Cells % 0.0 Neutrophils # 8.6 H Lymphocytes # 0.4 L Monocytes # 0.8 Eosinophils # 0.1 Basophils # 0.0 Nucleated Red Blood Cells # 0.0 Prothrombin Time 16.1 #H Prothrombin Time Ratio 1.3 INR International Normalized Ratio 1.28 Activated Partial Thromboplast Time 28.0 Sodium Level 142 Potassium Level 3.7 Chloride Level 107 Carbon Dioxide Level 26 Anion Gap 13 Blood Urea Nitrogen 19 Creatinine 1.24 Glucose Level 132 # Calcium Level 8.8 Magnesium Level 2.1 Test 05/09/17 22:06 05/10/17 00:21 05/10/17 02:03 05/10/17 03:45 Bedside Glucose 172 133 153 White Blood Count 6.8 # Red Blood Count 3.23 L Hemoglobin 9.2 L Hematocrit 28.3 L Mean Corpuscular Volume 87.6 Mean Corpuscular Hemoglobin 28.5 L Mean Corpuscular Hemoglobin Concent 32.5 Red Cell Distribution Width 13.0 Platelet Count 173 Mean Platelet Volume 12.0 H Neutrophils % 84.1 H Lymphocytes % 5.3 L Monocytes % 9.7 Eosinophils % 0.4 Basophils % 0.1 Nucleated Red Blood Cells % 0.0 Neutrophils # 5.7 Lymphocytes # 0.4 L Monocytes # 0.7 Eosinophils # 0.0 Basophils # 0.0 Nucleated Red Blood Cells # 0.0 Prothrombin Time 21.4 #H Prothrombin Time Ratio 1.7 INR International Normalized Ratio 1.84 Activated Partial Thromboplast Time 32.9 Sodium Level 143 Potassium Level 5.0 Chloride Level 111 H Carbon Dioxide Level 28 Anion Gap 9 Blood Urea Nitrogen 19 Creatinine 1.12 Glucose Level 136 Calcium Level 9.1 Phosphorus Level 2.8 Magnesium Level 1.9 Test 05/10/17 04:20 05/10/17 05:00 05/10/17 05:07 05/10/17 06:01 Bedside Glucose 157 141 Blood Gas Specimen Source Blood arterial Arterial Blood Date Drawn 05/10/2017 5:50:31 AM Arterial Blood pH (Temp corrected) 7.425 Arterial Blood pCO2 (Temp correct) 38.8 Arterial Blood pO2 (Temp corrected) 89.1 Arterial Blood HCO3 24.9 Arterial Blood Base Excess 0.5 Arterial Blood Oxygen Saturation 96.2 Gasper Test N/A Arterial Blood Gas Puncture Site A-Line Arterial Blood Carboxyhemoglobin 0.2 Arterial Blood Methemoglobin 0.2 Blood Gas A-a O2 Differential 57.5 H Oxyhemoglobin Percent 95.8 Total Hemoglobin 9.8 L Blood Gas Temperature 37.0 Blood Gas Modality NASAL CANNULA FiO2 27.0 Blood Gas Notified Whom RICKEY PEPE Blood Gas Notified Time 05/10/2017 6:08:44 AM Lab Scanned Report BLOOD TRANSFUSION Test 05/10/17 08:09 05/10/17 09:10 Bedside Glucose 147 White Blood Count Pending Red Blood Count Pending Hemoglobin Pending Hematocrit Pending Mean Corpuscular Volume Pending Mean Corpuscular Hemoglobin Pending Mean Corpuscular Hemoglobin Concent Pending Red Cell Distribution Width Pending Platelet Count Pending Mean Platelet Volume Pending Medications Medications Current Medications Acetaminophen (Tylenol Tab) 650 mg Q4H PRN PO NON-CARDIAC PAIN LEVEL (1-3) Last administered on 05/08/17 14:12; Admin Dose 650 MG; Start 05/04/17 at 14: 30 Al Hydrox/Mg Hydrox/Simethicone (Mag-Al Plus) 30 ml Q4H PRN PO GASTROINTESTINAL UPSET; Start 05/04/17 at 14:30 Ondansetron HCl (Zofran Inj) 4 mg Q4H PRN IV NAUSEA AND/OR VOMITING; Start at 14:30 Atorvastatin Calcium (Lipitor) 80 mg QHS PO Last administered on 05/08/17 20: 18; Admin Dose 80 MG; Start 05/04/17 at 21:00 Clopidogrel Bisulfate (plaVIX) 75 mg DAILY PO Last administered on 05/08/17 08:09; Admin Dose 75 MG; Start 05/05/17 at 09:00 Gabapentin (Neurontin) 300 mg BID PO Last administered on 05/08/17 20:18; Admin Dose 300 MG; Start 05/04/17 at 21:00 Isosorbide Mononitrate (Imdur) 30 mg DAILY PO Last administered on 05/08/17 08:09; Admin Dose 30 MG; Start 05/05/17 at 09:00 Fish Oil (Fish Oil) 2,000 mg BID PO Last administered on 05/08/17 20:18; Admin Dose 2,000 MG; Start 05/04/17 at 21:00 Nitroglycerin (Nitroglycerin (Sl Tab) 0.4 Mg) 1 tab Q5M PRN SL CHEST PAIN; Start 05/04/17 at 15:30 Morphine Sulfate (morphine) 2 mg Q4H PRN IV PAIN LEVEL 7-10 Last administered on 05/09/17 16:17; Admin Dose 2 MG; Start 05/04/17 at 15:30 Docusate Sodium (Colace) 100 mg Q12H PRN PO CONSTIPATION; Start 05/04/17 at 15 :30 Magnesium Hydroxide (Milk Of Mag) 30 ml DAILY PRN PO CONSTIPATION; Start 05/04 at 15:30 Pantoprazole (Protonix Tab) 40 mg DAILY@06 PO Last administered on 05/10/17 06:29; Admin Dose 40 MG; Start 05/05/17 at 06:00 Metoprolol Tartrate (Lopressor) 25 mg BID PO Last administered on 05/08/17 08 :09; Admin Dose 25 MG; Start 05/05/17 at 21:00 Lisinopril 5 mg 5 mg DAILY PO ; Start 05/09/17 at 09:00 Potassium Chloride/Calcium Chloride/Dextrose/ Sodium Chloride (KCl/Ca Chloride/ D5-1/4ns) 1,030 ml @ 60 mls/hr [id number] IV Last administered on 05/10/17 08: 28; Admin Dose 60 MLS/HR; Start 05/09/17 at 14:57 Hydromorphone HCl (Dilaudid) 0.2 mg Q15M PRN IV PAIN LEVEL 1-5; Start at 15:00 Hydromorphone HCl (Dilaudid) 0.4 mg Q15M PRN IV PAIN LEVEL 6-10; Start at 15:00 Morphine Sulfate (morphine) 2 mg Q2 PRN IV PAIN LEVEL 1-5 Last administered on 05/10/17 07:09; Admin Dose 2 MG; Start 05/09/17 at 15:00 Morphine Sulfate (morphine) 4 mg Q2 PRN IV PAIN LEVEL 6-10; Start 05/09/17 at 15:00 Ondansetron HCl (Zofran Inj) 2 mg ONCE PRN IV NAUSEA AND/OR VOMITING; Start at 15:00 Midazolam HCl (Versed) 1 mg Q2H PRN IV AGITATION; Start 05/09/17 at 15:00 Famotidine (Pepcid Iv) 20 mg BID@08,20 IV Last administered on 05/10/17 08:27 ; Admin Dose 20 MG; Start 05/09/17 at 20:00 Acetaminophen (Tylenol Tab) 650 mg Q3H PRN PO ELEVATED TEMPERATURE; Start at 15:00 Acetaminophen (Tylenol Supp) 650 mg Q3H PRN IN ELEVATED TEMPERATURE Last administered on 05/09/17 18:46; Admin Dose 650 MG; Start 05/09/17 at 15:00 Diagnostic Test (Pha) (Accu-Chek) 1 ea Q1H XX Last administered on 05/10/17 08:12; Admin Dose 1 EA; Start 05/09/17 at 15:30 Dextrose (D50w Syringe) 25 ml Q15M PRN IV Till BS 80 mg/dL or above x2; Start 05/09/17 at 15:30 Dextrose (D50w Syringe) 50 ml Q15M PRN IV Till BS 80 mg/dL or above x2; Start 05/09/17 at 15:30 NICOLE AGOSTO MD May 10, 2017 09:58
[2017-05-10] MEDS: FISH OIL 1,000 MG CAP PO SCH ×2 (10:00→20:28)
[2017-05-10] MEDS: CLOPIDOGREL 75 MG TAB PO SCH (10:00)
[2017-05-10] MEDS: METOPROLOL 25 MG TAB PO SCH ×2 (10:00→20:38)
[2017-05-10] MEDS: GABAPENTIN 300 MG CAP PO SCH ×2 (10:00→20:28)
[2017-05-10 10:01] LABS: BASOPHILS % 0.2 % (0.0-2.0); EOSINOPHILS % 0.1 % (0.0-7.0); HEMATOCRIT 28.8 % (42.0-52.0); HEMOGLOBIN 9.4 g/dl (14.0-18.0); LYMPHOCYTES # 0.7 10^3/ul (0.8-2.9); LYMPHOCYTES % 7.9 % (15.0-51.0); MEAN CORPUSCULAR HEMOGLOBIN 28.1 pg (29.0-33.0); MEAN CORPUSCULAR HGB CONC 32.6 g/dl (32.0-37.0); MEAN CORPUSCULAR VOLUME 86.2 fl (82.0-101.0); MEAN PLATELET VOLUME 11.7 fl (7.4-10.4); MONOCYTE # 0.7 10^3/ul (0.3-0.9); MONOCYTES % 8.2 % (0.0-11.0); NEUTROPHIL # 7.1 10^3/ul (1.6-7.5); NEUTROPHILS % 83.2 % (39.0-77.0); PLATELET COUNT 213 10^3/UL (140-415); RED BLOOD COUNT 3.34 10^6/ul (4.70-6.10); RED CELL DISTRIBUTION WIDTH 13.3 % (11.5-14.5); WHITE BLOOD COUNT 8.6 10^3/ul (4.8-10.8)
[2017-05-10] MEDS: ISOSORBIDE MONONITRATE(SR)30 MG TAB PO SCH (10:01)
[2017-05-10] MEDS: LISINOPRIL 5 MG TAB PO SCH (10:02)
[2017-05-10 10:29] LABS: INR 2.46; PARTIAL THROMBOPLASTIN TIME 32.8 Sec (25.0-35.0); PT RATIO 2.1
[2017-05-10 10:40] LABS: CALCIUM 9.5 mg/dl (8.4-10.2); CREATININE 1.05 mg/dl (0.61-1.24); MAGNESIUM 1.8 mg/dl (1.7-2.5)
--- NOTE | 2017-05-10 12:02 | PN ---
Date/Time of Note Date/Time of Note DATE: 05/10/17 TIME: 12:01 Assessment/Plan Lines/Catheters IV Catheter Type (from Nrs): Central Line Harding in Place (from Nrs): Yes Assessment/Plan Chief Complaint/Hosp Course IMPRESSION: 1. Coronary artery disease. 2. Coagulopathy. RECOMMENDATIONS: We will proceed with coronary artery bypass grafting after recommendations from hematology/oncology. Discussed with the patient the risks , benefits, complications, alternative therapies explained to the patient and the family. All questions answered. SP CABG will DC PA lines continue CT sxn discussed with the family Problems: Subjective 24 Hr Interval Summary Constitutional: improved Pain Control: mild Exam/Review of Systems Vital Signs Vitals Vital Signs Date Time Temp Pulse Resp B/P Pulse Ox O2 Delivery O2 Flow Rate FiO2 05/10/17 11:15 106 27 130/89 96 Nasal Cannula 3.0 05/10/17 07:15 100.2 05/09/17 20:00 50 Intake and Output 05/09/17 05/09/17 05/10/17 15:00 23:00 07:00 Intake Total 3464 ml 774 ml 1044.5 ml Output Total 4340 ml 982 ml 660 ml Balance -876 ml -208 ml 384.5 ml Exam Neck: non-tender, supple Respiratory: clear to auscultation, normal air movement Cardiovascular: nl pulses, regular rate and rhythm Results Result Diagram: 05/10/17 0910 05/10/17 0910 MARYAM TORRE MD May 10, 2017 12:02
--- NOTE | 2017-05-10 13:24 | CONS ---
Date/Time of Note Date/Time of Note DATE: 05/10/17 TIME: 13:23 Assessment/Plan Assessment/Plan Chief Complaint/Hosp Course #Coagulopathy -Per the patient and his family, pt has factor VII deficiency -pt was given Zara 7 2mg intraoperatively -give patient appears stable I would not given another dose at this time unless there is a concern for post op bleed #Multivessel disease CAD -s/p CABG -continue Beta Blockade -meds per cardiology #HTN -BP ok -continue strict blood pressure control per cardiology Problems: Consultation Date/Type/Reason Admit Date/Time May 04, 2017 at 15:44 Initial Consult Date 05/05/17 Type of Consultation: hematology Reason for Consultation coagulopathy Referring Provider: DAYANARA SHABAZZ 24 HR Interval Summary Free Text/Dictation pt is doing well post op. no bleeding Exam/Review of Systems Vital Signs Vitals Vital Signs Date Time Temp Pulse Resp B/P Pulse Ox O2 Delivery O2 Flow Rate FiO2 05/10/17 12:00 104 05/10/17 12:00 Nasal Cannula 3.0 05/10/17 11:15 27 130/89 96 05/10/17 07:15 100.2 05/09/17 20:00 50 Intake and Output 05/09/17 05/09/17 05/10/17 15:00 23:00 07:00 Intake Total 3464 ml 774 ml 1044.5 ml Output Total 4340 ml 982 ml 660 ml Balance -876 ml -208 ml 384.5 ml Exam Constitutional: alert, oriented Psych: no complaints Head: normocephalic Eyes: nl conjunctiva ENMT: nl external ears & nose Neck: non-tender, supple Respiratory: clear to auscultation, normal air movement Cardiovascular: regular rate and rhythm Gastrointestinal: soft Musculoskeletal: nl extremities to inspection Extremities: normal pulses Neurological: RECREATION PROGRAM COORDINATOR II-XII intact Results Result Diagram: 05/10/17 0910 05/10/17 0910 Results 24 hrs Laboratory Tests Test 05/09/17 14:47 05/09/17 15:25 05/09/17 15:26 05/09/17 16:04 Bedside Glucose 97 Blood Gas Specimen Source Blood arterial BLMV Arterial Blood Date Drawn 05/09/2017 3:20:41 PM 05/09/2017 3:25:11 PM Arterial Blood pH (Temp corrected) 7.353 Arterial Blood pCO2 (Temp correct) 40.3 Arterial Blood pO2 (Temp corrected) 80.3 Arterial Blood HCO3 21.9 L Arterial Blood Base Excess -3.4 L Arterial Blood Oxygen Saturation 94.5 L Gasper Test N/A N/A Arterial Blood Gas Puncture Site A-Line PUL ART LINE Arterial Blood Carboxyhemoglobin 0.2 Arterial Blood Methemoglobin 0.4 Blood Gas A-a O2 Differential 375.5 H Oxyhemoglobin Percent 93.9 Total Hemoglobin 9.9 L Blood Gas Temperature 37.0 37.0 Blood Gas Respiration Rate 14.0 14.0 Blood Gas Actual Respiration Rate 18 18 Blood Gas Modality VENT - AC VENT - AC FiO2 70.0 70.0 Blood Gas Tidal Volume 500.0 500.0 Blood Gas Low PEEP Setting 5.0 5.0 Blood Gas Notified Whom LILI PEARSON Blood Gas Notified Time 05/09/2017 3:32:15 PM 05/09/2017 3:35:46 PM Mixed Venous Blood PO2 30.0 Mixed Venous Blood O2 Saturation 54.5 L Mixed Venous Blood Total Hemoglobin 10.4 Mixed Venous Blood Oxyhemoglobin 54.1 Mixed Venous Bld Carboxyhemoglobin 0.3 Mixed Venous Blood Methemoglobin 0.4 White Blood Count 12.8 #H Red Blood Count 3.28 #L Hemoglobin 9.3 #L Hematocrit 28.3 #L Mean Corpuscular Volume 86.3 Mean Corpuscular Hemoglobin 28.4 L Mean Corpuscular Hemoglobin Concent 32.9 Red Cell Distribution Width 12.8 Platelet Count 227 # Mean Platelet Volume 10.8 H Neutrophils % 76.5 Lymphocytes % 15.4 Monocytes % 7.3 Eosinophils % 0.2 Basophils % 0.1 Nucleated Red Blood Cells % 0.0 Neutrophils # 9.8 H Lymphocytes # 2.0 Monocytes # 0.9 Eosinophils # 0.0 Basophils # 0.0 Nucleated Red Blood Cells # 0.0 Test 05/09/17 16:05 05/09/17 16:06 05/09/17 17:25 05/09/17 18:14 Potassium Level 3.5 Magnesium Level 1.6 L Bedside Glucose 155 141 191 Test 05/09/17 19:03 05/09/17 20:05 05/09/17 21:08 05/09/17 21:39 Bedside Glucose 204 166 154 White Blood Count 10.0 # Red Blood Count 3.15 L Hemoglobin 9.1 L Hematocrit 27.6 L Mean Corpuscular Volume 87.6 Mean Corpuscular Hemoglobin 28.9 L Mean Corpuscular Hemoglobin Concent 33.0 Red Cell Distribution Width 12.9 Platelet Count 174 # Mean Platelet Volume 11.4 H Neutrophils % 86.1 H Lymphocytes % 3.9 L Monocytes % 7.9 Eosinophils % 1.2 Basophils % 0.3 Nucleated Red Blood Cells % 0.0 Neutrophils # 8.6 H Lymphocytes # 0.4 L Monocytes # 0.8 Eosinophils # 0.1 Basophils # 0.0 Nucleated Red Blood Cells # 0.0 Prothrombin Time 16.1 #H Prothrombin Time Ratio 1.3 INR International Normalized Ratio 1.28 Activated Partial Thromboplast Time 28.0 Sodium Level 142 Potassium Level 3.7 Chloride Level 107 Carbon Dioxide Level 26 Anion Gap 13 Blood Urea Nitrogen 19 Creatinine 1.24 Glucose Level 132 # Calcium Level 8.8 Magnesium Level 2.1 Test 05/09/17 22:06 05/10/17 00:21 05/10/17 02:03 05/10/17 03:45 Bedside Glucose 172 133 153 White Blood Count 6.8 # Red Blood Count 3.23 L Hemoglobin 9.2 L Hematocrit 28.3 L Mean Corpuscular Volume 87.6 Mean Corpuscular Hemoglobin 28.5 L Mean Corpuscular Hemoglobin Concent 32.5 Red Cell Distribution Width 13.0 Platelet Count 173 Mean Platelet Volume 12.0 H Neutrophils % 84.1 H Lymphocytes % 5.3 L Monocytes % 9.7 Eosinophils % 0.4 Basophils % 0.1 Nucleated Red Blood Cells % 0.0 Neutrophils # 5.7 Lymphocytes # 0.4 L Monocytes # 0.7 Eosinophils # 0.0 Basophils # 0.0 Nucleated Red Blood Cells # 0.0 Prothrombin Time 21.4 #H Prothrombin Time Ratio 1.7 INR International Normalized Ratio 1.84 Activated Partial Thromboplast Time 32.9 Sodium Level 143 Potassium Level 5.0 Chloride Level 111 H Carbon Dioxide Level 28 Anion Gap 9 Blood Urea Nitrogen 19 Creatinine 1.12 Glucose Level 136 Calcium Level 9.1 Phosphorus Level 2.8 Magnesium Level 1.9 Test 05/10/17 04:20 05/10/17 05:00 05/10/17 05:07 05/10/17 06:01 Bedside Glucose 157 141 Blood Gas Specimen Source Blood arterial Arterial Blood Date Drawn 05/10/2017 5:50:31 AM Arterial Blood pH (Temp corrected) 7.425 Arterial Blood pCO2 (Temp correct) 38.8 Arterial Blood pO2 (Temp corrected) 89.1 Arterial Blood HCO3 24.9 Arterial Blood Base Excess 0.5 Arterial Blood Oxygen Saturation 96.2 Gasper Test N/A Arterial Blood Gas Puncture Site A-Line Arterial Blood Carboxyhemoglobin 0.2 Arterial Blood Methemoglobin 0.2 Blood Gas A-a O2 Differential 57.5 H Oxyhemoglobin Percent 95.8 Total Hemoglobin 9.8 L Blood Gas Temperature 37.0 Blood Gas Modality NASAL CANNULA FiO2 27.0 Blood Gas Notified Whom RICKEY PEPE Blood Gas Notified Time 05/10/2017 6:08:44 AM Lab Scanned Report BLOOD TRANSFUSION Test 05/10/17 08:09 05/10/17 09:10 05/10/17 10:05 05/10/17 12:22 Bedside Glucose 147 170 145 White Blood Count 8.6 # Red Blood Count 3.34 L Hemoglobin 9.4 L Hematocrit 28.8 L Mean Corpuscular Volume 86.2 Mean Corpuscular Hemoglobin 28.1 L Mean Corpuscular Hemoglobin Concent 32.6 Red Cell Distribution Width 13.3 Platelet Count 213 # Mean Platelet Volume 11.7 H Neutrophils % 83.2 H Lymphocytes % 7.9 L Monocytes % 8.2 Eosinophils % 0.1 Basophils % 0.2 Nucleated Red Blood Cells % 0.0 Neutrophils # 7.1 Lymphocytes # 0.7 L Monocytes # 0.7 Eosinophils # 0.0 Basophils # 0.0 Nucleated Red Blood Cells # 0.0 Prothrombin Time 27.0 #H Prothrombin Time Ratio 2.1 INR International Normalized Ratio 2.46 Activated Partial Thromboplast Time 32.8 Sodium Level 141 Potassium Level 5.0 Chloride Level 107 Carbon Dioxide Level 27 Anion Gap 12 Blood Urea Nitrogen 19 Creatinine 1.05 Glucose Level 137 Calcium Level 9.5 Magnesium Level 1.8 Medications Medications Current Medications Acetaminophen (Tylenol Tab) 650 mg Q4H PRN PO NON-CARDIAC PAIN LEVEL (1-3) Last administered on 05/08/17t 14:12; Admin Dose 650 MG; Start 05/04/17 at 14: 30 Al Hydrox/Mg Hydrox/Simethicone (Mag-Al Plus) 30 ml Q4H PRN PO GASTROINTESTINAL UPSET; Start 05/04/17 at 14:30 Ondansetron HCl (Zofran Inj) 4 mg Q4H PRN IV NAUSEA AND/OR VOMITING; Start at 14:30 Atorvastatin Calcium (Lipitor) 80 mg QHS PO Last administered on 05/08/17 20: 18; Admin Dose 80 MG; Start 05/04/17 at 21:00 Clopidogrel Bisulfate (plaVIX) 75 mg DAILY PO Last administered on 05/10/17 10:00; Admin Dose 75 MG; Start 05/05/17 at 09:00 Gabapentin (Neurontin) 300 mg BID PO Last administered on 05/10/17 10:00; Admin Dose 300 MG; Start 05/04/17 at 21:00 Isosorbide Mononitrate (Imdur) 30 mg DAILY PO Last administered on 05/10/17 10:01; Admin Dose 30 MG; Start 05/05/17 at 09:00 Fish Oil (Fish Oil) 2,000 mg BID PO Last administered on 05/10/17 10:00; Admin Dose 2,000 MG; Start 05/04/17 at 21:00 Nitroglycerin (Nitroglycerin (Sl Tab) 0.4 Mg) 1 tab Q5M PRN SL CHEST PAIN; Start 05/04/17 at 15:30 Morphine Sulfate (morphine) 2 mg Q4H PRN IV PAIN LEVEL 7-10 Last administered on 05/09/17 16:17; Admin Dose 2 MG; Start 05/04/17 at 15:30 Docusate Sodium (Colace) 100 mg Q12H PRN PO CONSTIPATION; Start 05/04/17 at 15 :30 Magnesium Hydroxide (Milk Of Mag) 30 ml DAILY PRN PO CONSTIPATION; Start 05/04 at 15:30 Pantoprazole (Protonix Tab) 40 mg DAILY@06 PO Last administered on 05/10/17 06:29; Admin Dose 40 MG; Start 05/05/17 at 06:00 Metoprolol Tartrate (Lopressor) 25 mg BID PO Last administered on 05/10/17 10 :00; Admin Dose 25 MG; Start 05/05/17 at 21:00 Lisinopril 5 mg 5 mg DAILY PO Last administered on 05/10/17 10:02; Admin Dose 5 MG; Start 05/09/17 at 09:00 Potassium Chloride/Calcium Chloride/Dextrose/ Sodium Chloride (KCl/Ca Chloride/ D5-1/4ns) 1,030 ml @ 60 mls/hr [id number] IV Last administered on 05/10/17 08: 28; Admin Dose 60 MLS/HR; Start 05/09/17 at 14:57 Hydromorphone HCl (Dilaudid) 0.2 mg Q15M PRN IV PAIN LEVEL 1-5; Start at 15:00 Hydromorphone HCl (Dilaudid) 0.4 mg Q15M PRN IV PAIN LEVEL 6-10; Start at 15:00 Morphine Sulfate (morphine) 2 mg Q2 PRN IV PAIN LEVEL 1-5 Last administered on 05/10/17 07:09; Admin Dose 2 MG; Start 05/09/17 at 15:00 Morphine Sulfate (morphine) 4 mg Q2 PRN IV PAIN LEVEL 6-10; Start 05/09/17 at 15:00 Ondansetron HCl (Zofran Inj) 2 mg ONCE PRN IV NAUSEA AND/OR VOMITING; Start at 15:00 Midazolam HCl (Versed) 1 mg Q2H PRN IV AGITATION; Start 05/09/17 at 15:00 Famotidine (Pepcid Iv) 20 mg BID@08,20 IV Last administered on 05/10/17 08:27 ; Admin Dose 20 MG; Start 05/09/17 at 20:00 Acetaminophen (Tylenol Tab) 650 mg Q3H PRN PO ELEVATED TEMPERATURE; Start at 15:00 Acetaminophen (Tylenol Supp) 650 mg Q3H PRN [place] ELEVATED TEMPERATURE Last administered on 05/09/17 18:46; Admin Dose 650 MG; Start 05/09/17 at 15:00 Diagnostic Test (Pha) (Accu-Chek) 1 ea Q1H XX Last administered on 05/10/17 12:33; Admin Dose 1 EA; Start 05/09/17 at 15:30 Dextrose (D50w Syringe) 25 ml Q15M PRN IV Till BS 80 mg/dL or above x2; Start 05/09/17 at 15:30 Dextrose (D50w Syringe) 50 ml Q15M PRN IV Till BS 80 mg/dL or above x2; Start 05/09/17 at 15:30 KERRY WILLS M.D. May 10, 2017 13:24
[2017-05-10] MEDS: HYDROmorphONE 0.5 MG/0.5 ML SYG IV PRN ×2 (13:53→21:52)
[2017-05-10 14:53] LABS: ABNORMAL IP MESSAGE 1; BASOPHILS % 0.3 % (0.0-2.0); EOSINOPHILS % 0.1 % (0.0-7.0); HEMATOCRIT 26.6 % (42.0-52.0); LYMPHOCYTES # 0.5 10^3/ul (0.8-2.9); MEAN CORPUSCULAR HEMOGLOBIN 28.9 pg (29.0-33.0); MEAN CORPUSCULAR HGB CONC 33.8 g/dl (32.0-37.0); MEAN CORPUSCULAR VOLUME 85.5 fl (82.0-101.0); MEAN PLATELET VOLUME 11.5 fl (7.4-10.4); MONOCYTE # 0.7 10^3/ul (0.3-0.9); MONOCYTES % 9.6 % (0.0-11.0); NEUTROPHIL # 6.4 10^3/ul (1.6-7.5); NEUTROPHILS % 83.6 % (39.0-77.0); PLATELET COUNT 187 10^3/UL (140-415); POSITIVE DIFF @See below; RED BLOOD COUNT 3.11 10^6/ul (4.70-6.10); RED CELL DISTRIBUTION WIDTH 13.1 % (11.5-14.5); WHITE BLOOD COUNT 7.6 10^3/ul (4.8-10.8)
[2017-05-10 15:08] LABS: PT RATIO 2.5
[2017-05-10 15:09] LABS: PARTIAL THROMBOPLASTIN TIME 29.9 Sec (25.0-35.0)
[2017-05-10 15:22] LABS: ALBUMIN 3.2 g/dl (3.3-4.9); CALCIUM 9.5 mg/dl (8.4-10.2); CREATININE 0.96 mg/dl (0.61-1.24); MAGNESIUM 1.8 mg/dl (1.7-2.5); PHOSPHORUS 3.2 mg/dl (2.5-4.9); POTASSIUM 4.6 mmol/L (3.5-5.1)
[2017-05-10 15:42] LABS: INR 3.05
--- NOTE | 2017-05-10 17:39 | PN ---
Date/Time of Note Date/Time of Note DATE: 05/10/17 TIME: 17:38 Assessment/Plan VTE Prophylaxis VTE Prophylaxis Intervention: SCD's Lines/Catheters IV Catheter Type (from Nrsg): Central Line Central line still needed: Yes Urinary Cath still in place: Yes Reason Cath still needed: terminal illness/intractable pain Assessment/Plan Chief Complaint/Hosp Course Assessment/Plan 1. 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 use parvin 7 in case of bleed s/p CABG. - PTT Mixing study showed correction - No av bleeding appreciated at this time and will continue to monitor 2. CAD s/p stenting in 2005 - 4x CABG done 05/09/17 -CT surgery recs appreciated -medications and acute surgical issues to be managed by CT surgery. -chest tubes still in 3. Hypothyroidism - TSH within nl limits - continue home dose of levothyroxine for now 4. Disposition -CT surgery to manage for now -extubate when able -DISPO when ready and stable. Problems: Subjective 24 Hr Interval Summary Free Text/Dictation sleepy, but no acute complaints except for ahumada catheter discomfort Exam/Review of Systems Vital Signs Vitals Vital Signs Date Time Temp Pulse Resp B/P Pulse Ox O2 Delivery O2 Flow Rate FiO2 05/10/17 16:00 96 19 110/75 97 Nasal Cannula 3.0 05/10/17 12:00 99.0 05/09/17 20:00 50 Intake and Output 05/09/17 05/09/17 05/10/17 15:00 23:00 07:00 Intake Total 3464 ml 774 ml 1156.0 ml Output Total 4340 ml 982 ml 695 ml Balance -876 ml -208 ml 461.0 ml Exam Constitutional: alert, sedated, intubated Head: atraumatic, normocephalic Eyes: EOMI, PERRL, nl sclera Neck: non-tender, supple Respiratory: coarse to auscultation bilaterally. Cardiovascular: tachycardic, no obvious murmurs, midline incision. CDI. Chest tubes in Gastrointestinal: bowel sounds, non distended Musculoskeletal: nl extremities to inspection Extremities: normal pulses, No clubbing, No cyanosis, Neurological: SHANK TAPER II-XII intact, nl mental status, nl speech Skin: nl turgor Results Result Diagram: 05/10/17 1433 05/10/17 1433 Results 24 hrs Laboratory Tests Test 05/09/17 18:14 05/09/17 19:03 05/09/17 20:05 05/09/17 21:08 Bedside Glucose 191 204 166 154 Test 05/09/17 21:39 05/09/17 22:06 05/10/17 00:21 05/10/17 02:03 White Blood Count 10.0 # Red Blood Count 3.15 L Hemoglobin 9.1 L Hematocrit 27.6 L Mean Corpuscular Volume 87.6 Mean Corpuscular Hemoglobin 28.9 L Mean Corpuscular Hemoglobin Concent 33.0 Red Cell Distribution Width 12.9 Platelet Count 174 # Mean Platelet Volume 11.4 H Neutrophils % 86.1 H Lymphocytes % 3.9 L Monocytes % 7.9 Eosinophils % 1.2 Basophils % 0.3 Nucleated Red Blood Cells % 0.0 Neutrophils # 8.6 H Lymphocytes # 0.4 L Monocytes # 0.8 Eosinophils # 0.1 Basophils # 0.0 Nucleated Red Blood Cells # 0.0 Prothrombin Time 16.1 #H Prothrombin Time Ratio 1.3 INR International Normalized Ratio 1.28 Activated Partial Thromboplast Time 28.0 Sodium Level 142 Potassium Level 3.7 Chloride Level 107 Carbon Dioxide Level 26 Anion Gap 13 Blood Urea Nitrogen 19 Creatinine 1.24 Glucose Level 132 # Calcium Level 8.8 Magnesium Level 2.1 Bedside Glucose 172 133 153 Test 05/10/17 03:45 05/10/17 04:20 05/10/17 05:00 05/10/17 05:07 White Blood Count 6.8 # Red Blood Count 3.23 L Hemoglobin 9.2 L Hematocrit 28.3 L Mean Corpuscular Volume 87.6 Mean Corpuscular Hemoglobin 28.5 L Mean Corpuscular Hemoglobin Concent 32.5 Red Cell Distribution Width 13.0 Platelet Count 173 Mean Platelet Volume 12.0 H Neutrophils % 84.1 H Lymphocytes % 5.3 L Monocytes % 9.7 Eosinophils % 0.4 Basophils % 0.1 Nucleated Red Blood Cells % 0.0 Neutrophils # 5.7 Lymphocytes # 0.4 L Monocytes # 0.7 Eosinophils # 0.0 Basophils # 0.0 Nucleated Red Blood Cells # 0.0 Prothrombin Time 21.4 #H Prothrombin Time Ratio 1.7 INR International Normalized Ratio 1.84 Activated Partial Thromboplast Time 32.9 Sodium Level 143 Potassium Level 5.0 Chloride Level 111 H Carbon Dioxide Level 28 Anion Gap 9 Blood Urea Nitrogen 19 Creatinine 1.12 Glucose Level 136 Calcium Level 9.1 Phosphorus Level 2.8 Magnesium Level 1.9 Bedside Glucose 157 Blood Gas Specimen Source Blood arterial Arterial Blood Date Drawn 05/10/2017 5:50:31 AM Arterial Blood pH (Temp corrected) 7.425 Arterial Blood pCO2 (Temp correct) 38.8 Arterial Blood pO2 (Temp corrected) 89.1 Arterial Blood HCO3 24.9 Arterial Blood Base Excess 0.5 Arterial Blood Oxygen Saturation 96.2 Gasper Test N/A Arterial Blood Gas Puncture Site A-Line Arterial Blood Carboxyhemoglobin 0.2 Arterial Blood Methemoglobin 0.2 Blood Gas A-a O2 Differential 57.5 H Oxyhemoglobin Percent 95.8 Total Hemoglobin 9.8 L Blood Gas Temperature 37.0 Blood Gas Modality NASAL CANNULA FiO2 27.0 Blood Gas Notified Whom RICKEY PEPE Blood Gas Notified Time 05/10/2017 6:08:44 AM Lab Scanned Report BLOOD TRANSFUSION Test 05/10/17 06:01 05/10/17 08:09 05/10/17 09:10 05/10/17 10:05 Bedside Glucose 141 147 170 White Blood Count 8.6 # Red Blood Count 3.34 L Hemoglobin 9.4 L Hematocrit 28.8 L Mean Corpuscular Volume 86.2 Mean Corpuscular Hemoglobin 28.1 L Mean Corpuscular Hemoglobin Concent 32.6 Red Cell Distribution Width 13.3 Platelet Count 213 # Mean Platelet Volume 11.7 H Neutrophils % 83.2 H Lymphocytes % 7.9 L Monocytes % 8.2 Eosinophils % 0.1 Basophils % 0.2 Nucleated Red Blood Cells % 0.0 Neutrophils # 7.1 Lymphocytes # 0.7 L Monocytes # 0.7 Eosinophils # 0.0 Basophils # 0.0 Nucleated Red Blood Cells # 0.0 Prothrombin Time 27.0 #H Prothrombin Time Ratio 2.1 INR International Normalized Ratio 2.46 Activated Partial Thromboplast Time 32.8 Sodium Level 141 Potassium Level 5.0 Chloride Level 107 Carbon Dioxide Level 27 Anion Gap 12 Blood Urea Nitrogen 19 Creatinine 1.05 Glucose Level 137 Calcium Level 9.5 Magnesium Level 1.8 Test 05/10/17 12:22 05/10/17 14:13 05/10/17 14:33 05/10/17 16:42 Bedside Glucose 145 126 141 White Blood Count 7.6 Red Blood Count 3.11 L Hemoglobin 9.0 L Hematocrit 26.6 L Mean Corpuscular Volume 85.5 Mean Corpuscular Hemoglobin 28.9 L Mean Corpuscular Hemoglobin Concent 33.8 Red Cell Distribution Width 13.1 Platelet Count 187 Mean Platelet Volume 11.5 H Neutrophils % 83.6 H Lymphocytes % 6.0 L Monocytes % 9.6 Eosinophils % 0.1 Basophils % 0.3 Nucleated Red Blood Cells % 0.0 Neutrophils # 6.4 Lymphocytes # 0.5 L Monocytes # 0.7 Eosinophils # 0.0 Basophils # 0.0 Nucleated Red Blood Cells # 0.0 Prothrombin Time 32.0 H Prothrombin Time Ratio 2.5 INR International Normalized Ratio 3.05 Activated Partial Thromboplast Time 29.9 Sodium Level 140 Potassium Level 4.6 Chloride Level 106 Carbon Dioxide Level 28 Anion Gap 11 Blood Urea Nitrogen 19 Creatinine 0.96 Glucose Level 123 Calcium Level 9.5 Phosphorus Level 3.2 Magnesium Level 1.8 Albumin 3.2 L Medications Medications Current Medications Acetaminophen (Tylenol Tab) 650 mg Q4H PRN PO NON-CARDIAC PAIN LEVEL (1-3) Last administered on 05/08/17 14:12; Admin Dose 650 MG; Start 05/04/17 at 14: 30 Al Hydrox/Mg Hydrox/Simethicone (Mag-Al Plus) 30 ml Q4H PRN PO GASTROINTESTINAL UPSET; Start 05/04/17 at 14:30 Ondansetron HCl (Zofran Inj) 4 mg Q4H PRN IV NAUSEA AND/OR VOMITING; Start at 14:30 Atorvastatin Calcium (Lipitor) 80 mg QHS PO Last administered on 05/08/17 20: 18; Admin Dose 80 MG; Start 05/04/17 at 21:00 Clopidogrel Bisulfate (plaVIX) 75 mg DAILY PO Last administered on 05/10/17 10:00; Admin Dose 75 MG; Start 05/05/17 at 09:00 Gabapentin (Neurontin) 300 mg BID PO Last administered on 05/10/17 10:00; Admin Dose 300 MG; Start 05/04/17 at 21:00 Isosorbide Mononitrate (Imdur) 30 mg DAILY PO Last administered on 05/10/17 10:01; Admin Dose 30 MG; Start 05/05/17 at 09:00 Fish Oil (Fish Oil) 2,000 mg BID PO Last administered on 05/10/17 10:00; Admin Dose 2,000 MG; Start 05/04/17 at 21:00 Nitroglycerin (Nitroglycerin (Sl Tab) 0.4 Mg) 1 tab Q5M PRN SL CHEST PAIN; Start 05/04/17 at 15:30 Morphine Sulfate (morphine) 2 mg Q4H PRN IV PAIN LEVEL 7-10 Last administered on 05/09/17 16:17; Admin Dose 2 MG; Start 05/04/17 at 15:30 Docusate Sodium (Colace) 100 mg Q12H PRN PO CONSTIPATION; Start 05/04/17 at 15 :30 Magnesium Hydroxide (Milk Of Mag) 30 ml DAILY PRN PO CONSTIPATION; Start 05/04 at 15:30 Metoprolol Tartrate (Lopressor) 25 mg BID PO Last administered on 05/10/17 10 :00; Admin Dose 25 MG; Start 05/05/17 at 21:00 Lisinopril 5 mg 5 mg DAILY PO Last administered on 05/10/17 10:02; Admin Dose 5 MG; Start 05/09/17 at 09:00 Potassium Chloride/Calcium Chloride/Dextrose/ Sodium Chloride (KCl/Ca Chloride/ D5-1/4ns) 1,030 ml @ 60 mls/hr [id number] IV Last administered on 05/10/17 08: 28; Admin Dose 60 MLS/HR; Start 05/09/17 at 14:57 Hydromorphone HCl (Dilaudid) 0.2 mg Q15M PRN IV PAIN LEVEL 1-5; Start at 15:00 Hydromorphone HCl (Dilaudid) 0.4 mg Q15M PRN IV PAIN LEVEL 6-10 Last administered on 05/10/17 13:53; Admin Dose 0.4 MG; Start 05/09/17 at 15:00 Morphine Sulfate (morphine) 2 mg Q2 PRN IV PAIN LEVEL 1-5 Last administered on 05/10/17 07:09; Admin Dose 2 MG; Start 05/09/17 at 15:00 Morphine Sulfate (morphine) 4 mg Q2 PRN IV PAIN LEVEL 6-10; Start 05/09/17 at 15:00 Midazolam HCl (Versed) 1 mg Q2H PRN IV AGITATION; Start 05/09/17 at 15:00 Famotidine (Pepcid Iv) 20 mg BID@08,20 IV Last administered on 05/10/17 08:27 ; Admin Dose 20 MG; Start 05/09/17 at 20:00 Acetaminophen (Tylenol Tab) 650 mg Q3H PRN PO ELEVATED TEMPERATURE; Start at 15:00 Acetaminophen (Tylenol Supp) 650 mg Q3H PRN [place] ELEVATED TEMPERATURE Last administered on 05/09/17 18:46; Admin Dose 650 MG; Start 05/09/17 at 15:00 Diagnostic Test (Pha) (Accu-Chek) 1 ea Q1H XX Last administered on 05/10/17 16:54; Admin Dose 1 EA; Start 05/09/17 at 15:30 Dextrose (D50w Syringe) 25 ml Q15M PRN IV Till BS 80 mg/dL or above x2; Start 05/09/17 at 15:30 Dextrose (D50w Syringe) 50 ml Q15M PRN IV Till BS 80 mg/dL or above x2; Start 05/09/17 at 15:30 JESUSITA LACEY May 10, 2017 17:39
[2017-05-10 18:27] LABS: ABNORMAL IP MESSAGE 1; BASOPHILS % 0.2 % (0.0-2.0); EOSINOPHILS % 0.2 % (0.0-7.0); HEMATOCRIT 25.8 % (42.0-52.0); HEMOGLOBIN 8.7 g/dl (14.0-18.0); LYMPHOCYTES # 0.5 10^3/ul (0.8-2.9); LYMPHOCYTES % 7.2 % (15.0-51.0); MEAN CORPUSCULAR HEMOGLOBIN 28.6 pg (29.0-33.0); MEAN CORPUSCULAR HGB CONC 33.7 g/dl (32.0-37.0); MEAN CORPUSCULAR VOLUME 84.9 fl (82.0-101.0); MEAN PLATELET VOLUME 11.8 fl (7.4-10.4); MONOCYTE # 0.6 10^3/ul (0.3-0.9); MONOCYTES % 8.9 % (0.0-11.0); NEUTROPHIL # 5.4 10^3/ul (1.6-7.5); NEUTROPHILS % 83.3 % (39.0-77.0); PLATELET COUNT 165 10^3/UL (140-415); POSITIVE DIFF @See below; RED BLOOD COUNT 3.04 10^6/ul (4.70-6.10); WHITE BLOOD COUNT 6.4 10^3/ul (4.8-10.8)
[2017-05-10 18:58] LABS: PT RATIO 2.2
[2017-05-10 18:59] LABS: CALCIUM 9.2 mg/dl (8.4-10.2); CREATININE 0.9 mg/dl (0.61-1.24); MAGNESIUM 1.7 mg/dl (1.7-2.5); PARTIAL THROMBOPLASTIN TIME 27.7 Sec (25.0-35.0); POTASSIUM 4.5 mmol/L (3.5-5.1)
[2017-05-10 19:13] LABS: INR 2.56; PROTIME 27.8 Sec (12.2-14.2)
[2017-05-10] MEDS: ACETAMINOPHEN 325 MG TAB PO PRN (19:39)
[2017-05-10] MEDS: ATORVASTATIN 80 MG TAB PO SCH (20:28)
--- NOTE | 2017-05-10 22:42 | RADRPT ---
Vent Rate: 102 bpm RR Interval: 0 msec [place] Interval: 152 msec QRS Duration: 86 msec QT Interval: 332 msec QTC Interval: 432 msec P-R-T [place]: 52 - 32 - [address] elevation, consider early repolarization, pericarditis, or injury Nonspecific T wave abnormality Abnormal ECG Electronically Signed By: Medardo Fajardo [id number]
--- NOTE | 2017-05-10 22:43 | RADRPT ---
Vent Rate: 99 bpm RR Interval: 0 msec MI Interval: 148 msec QRS Duration: 84 msec QT Interval: 320 msec QTC Interval: 410 msec P-R-T [place]: 47 - 40 - 71 degrees Normal sinus rhythm Nonspecific T wave abnormality Abnormal ECG Electronically Signed By: Medardo Fajardo [id number]
--- NOTE | 2017-05-10 22:45 | RADRPT ---
Vent Rate: 103 bpm RR Interval: 0 msec [place] Interval: 144 msec QRS Duration: 82 msec QT Interval: 332 msec QTC Interval: 434 msec P-R-T [place]: 46 - 20 - 59 degrees Sinus tachycardia Nonspecific T wave abnormality Abnormal ECG Electronically Signed By: Medardo Fajardo [id number]
[2017-05-11] VITALS (23 sets, daily range): BP systolic 106–133; BP diastolic 64–85; PULSE 101–128; RESP 17–33
[2017-05-11] MEDS: ACCU-CHEK XX SCH ×15 (00:13→22:32)
[2017-05-11 01:12] LABS: CALCIUM 9.3 mg/dl (8.4-10.2); CREATININE 0.89 mg/dl (0.61-1.24); MAGNESIUM 1.8 mg/dl (1.7-2.5); POTASSIUM 4.7 mmol/L (3.5-5.1)
[2017-05-11 01:13] LABS: INR 2.91; PARTIAL THROMBOPLASTIN TIME 33.4 Sec (25.0-35.0); PROTIME 30.8 Sec (12.2-14.2); PT RATIO 2.4
[2017-05-11] MEDS: POTASSIUM CHLORIDE 40 MEQ, CALCIUM CHLORIDE 10% 1 GM in DEXTROSE 5%-0.225% NACL 1,000 ML IV SCH ×2 (01:17→03:43)
[2017-05-11] MEDS: INSULIN HUMAN REGULAR 100 UNIT in SOD CHLORIDE 0.9% 99 ML IV SCH (02:05)
[2017-05-11 04:57] LABS: BASOPHILS % 0.2 % (0.0-2.0); EOSINOPHILS # 0.1 10^3/ul (0.0-0.5); EOSINOPHILS % 1.1 % (0.0-7.0); HEMATOCRIT 23.9 % (42.0-52.0); HEMOGLOBIN 7.7 g/dl (14.0-18.0); LYMPHOCYTES # 0.6 10^3/ul (0.8-2.9); MEAN CORPUSCULAR HEMOGLOBIN 27.5 pg (29.0-33.0); MEAN CORPUSCULAR HGB CONC 32.2 g/dl (32.0-37.0); MEAN CORPUSCULAR VOLUME 85.4 fl (82.0-101.0); MEAN PLATELET VOLUME 12.2 fl (7.4-10.4); MONOCYTE # 0.5 10^3/ul (0.3-0.9); MONOCYTES % 8.2 % (0.0-11.0); NEUTROPHIL # 4.5 10^3/ul (1.6-7.5); NEUTROPHILS % 79.1 % (39.0-77.0); PLATELET COUNT 157 10^3/UL (140-415); RED CELL DISTRIBUTION WIDTH 13.2 % (11.5-14.5); WHITE BLOOD COUNT 5.6 10^3/ul (4.8-10.8)
[2017-05-11 05:11] LABS: INR 2.78; PROTIME 29.7 Sec (12.2-14.2); PT RATIO 2.3
[2017-05-11 05:22] LABS: CALCIUM 9.1 mg/dl (8.4-10.2); CREATININE 0.89 mg/dl (0.61-1.24); MAGNESIUM 1.7 mg/dl (1.7-2.5); POTASSIUM 4.1 mmol/L (3.5-5.1)
[2017-05-11 05:49] LABS: ALBUMIN 3.2 g/dl (3.3-4.9); CREATININE 0.85 mg/dl (0.61-1.24); MAGNESIUM 1.7 mg/dl (1.7-2.5); PHOSPHORUS 2.9 mg/dl (2.5-4.9); POTASSIUM 4.5 mmol/L (3.5-5.1)
[2017-05-11] MEDS: POTASSIUM CHLORIDE 50 ML IVPB PRN (05:55)
[2017-05-11] MEDS: LEVOTHYROXINE 100 MCG TAB PO SCH (06:24)
[2017-05-11 06:35] LABS: BASOPHILS % 0.3 % (0.0-2.0); EOSINOPHILS # 0.1 10^3/ul (0.0-0.5); HEMATOCRIT 24.8 % (42.0-52.0); HEMOGLOBIN 8.2 g/dl (14.0-18.0); LYMPHOCYTES # 0.6 10^3/ul (0.8-2.9); LYMPHOCYTES % 9.8 % (15.0-51.0); MEAN CORPUSCULAR HEMOGLOBIN 28.4 pg (29.0-33.0); MEAN CORPUSCULAR HGB CONC 33.1 g/dl (32.0-37.0); MEAN CORPUSCULAR VOLUME 85.8 fl (82.0-101.0); MONOCYTE # 0.5 10^3/ul (0.3-0.9); MONOCYTES % 8.2 % (0.0-11.0); NEUTROPHILS % 80.2 % (39.0-77.0); PLATELET COUNT 160 10^3/UL (140-415); RED BLOOD COUNT 2.89 10^6/ul (4.70-6.10); RED CELL DISTRIBUTION WIDTH 13.2 % (11.5-14.5); WHITE BLOOD COUNT 6.3 10^3/ul (4.8-10.8)
[2017-05-11] MEDS: CLOPIDOGREL 75 MG TAB PO SCH (08:18)
[2017-05-11] MEDS: FAMOTIDINE 20 MG INJ IV SCH ×2 (08:18→19:36)
[2017-05-11] MEDS: FISH OIL 1,000 MG CAP PO SCH ×2 (08:19→20:58)
[2017-05-11] MEDS: ISOSORBIDE MONONITRATE(SR)30 MG TAB PO SCH (08:19)
[2017-05-11] MEDS: LISINOPRIL 5 MG TAB PO SCH (08:19)
[2017-05-11] MEDS: GABAPENTIN 300 MG CAP PO SCH ×2 (08:19→20:57)
[2017-05-11] MEDS: METOPROLOL 25 MG TAB PO SCH ×2 (08:20→21:43)
[2017-05-11] MEDS ORDERED: MAGNESIUM SULFATE 1 GM/D5W 100 ML IVPB ONE (10:00)
[2017-05-11] MEDS ORDERED: GLUCAGON 1 MG INJ IM PRN (13:00)
[2017-05-11] MEDS ORDERED: DEXTROSE 50% 50 ML SYRINGE IV PRN ×2 (13:00)
[2017-05-11] MEDS ORDERED: GLUCOSE GEL 15 GRAM TUBE PO PRN ×2 (13:00)
[2017-05-11] MEDS ORDERED: GLUCOSE GEL 15 GRAM TUBE BUCCAL PRN (13:00)
--- NOTE | 2017-05-11 14:27 | CONS ---
Date/Time of Note Date/Time of Note DATE: 05/11/17 TIME: 14:22 Assessment/Plan Assessment/Plan Chief Complaint/Hosp Course IMP: 1.cad-mutivessel obstructive by [facility] 05/04. Now POD# 2 s/p 4 vessel cabg(VALDEZ- LAD, SVG-PDA/diag/OM) 2.UNstable angina-secondary to cad as above 3. Coagulopathy-factor V11 def?: 4.HTN 5.HL 6. Tachycardia-S Tach Recc: -Tele -serial ecg's -Continue oral nitrates/ACEI and follow BP clsoely -Will continue plavix for now -Dose IVP digoxin -Increase BB to improve HR control Problems: Consultation Date/Type/Reason Admit Date/Time May 04, 2017 at 15:44 Initial Consult Date 05/04/2017 Type of Consultation: cardiology Reason for Consultation cad s/p cabg Referring Provider: DAYANARA SHABAZZ Exam/Review of Systems Vital Signs Vitals Vital Signs Date Time Temp Pulse Resp B/P Pulse Ox O2 Delivery O2 Flow Rate FiO2 05/11/17 13:00 117 26 117/78 93 Nasal Cannula 2.0 05/11/17 12:00 98.9 05/09/17 20:00 50 Intake and Output 05/10/17 05/10/17 05/11/17 15:00 23:00 07:00 Intake Total 693.0 ml 692.75 ml 542.25 ml Output Total 525 ml 490 ml 577 ml Balance 168.0 ml 202.75 ml -34.75 ml Exam Review of Systems: CONSTITUTIONAL: No fevers, chills. PULMONARY: No sob CARDIOVASCULAR: No chest pain/palpitations GASTROINTESTINAL: No nausea/vomiting. GENITOURINARY: No hematuria/dysuria. MUSCULOSKELETAL: No myagias/arthalgias. PSYCHIATRIC: The patient denies depression. NEUROLOGIC: No weakness Constitutional: alert Psych: no complaints Head: normocephalic ENMT: mucosa pink and moist Neck: jvd (9 cm water), supple Respiratory: diminished breath sounds (at bases/B) Cardiovascular: regular rate and rhythm Gastrointestinal: non-tender, soft Musculoskeletal: muscle tone (normal) Extremities: edema Neurological: other (No focal deficits) Results Result Diagram: 05/11/17 0606 05/11/17 0310 Results 24 hrs Laboratory Tests Test 05/10/17 14:33 05/10/17 16:42 05/10/17 17:58 05/10/17 17:59 White Blood Count 7.6 6.4 Red Blood Count 3.11 L 3.04 L Hemoglobin 9.0 L 8.7 L Hematocrit 26.6 L 25.8 L Mean Corpuscular Volume 85.5 84.9 Mean Corpuscular Hemoglobin 28.9 L 28.6 L Mean Corpuscular Hemoglobin Concent 33.8 33.7 Red Cell Distribution Width 13.1 13.0 Platelet Count 187 165 Mean Platelet Volume 11.5 H 11.8 H Neutrophils % 83.6 H 83.3 H Lymphocytes % 6.0 L 7.2 L Monocytes % 9.6 8.9 Eosinophils % 0.1 0.2 Basophils % 0.3 0.2 Nucleated Red Blood Cells % 0.0 0.0 Neutrophils # 6.4 5.4 Lymphocytes # 0.5 L 0.5 L Monocytes # 0.7 0.6 Eosinophils # 0.0 0.0 Basophils # 0.0 0.0 Nucleated Red Blood Cells # 0.0 0.0 Prothrombin Time 32.0 H 27.8 H Prothrombin Time Ratio 2.5 2.2 INR International Normalized Ratio 3.05 2.56 Activated Partial Thromboplast Time 29.9 27.7 Sodium Level 140 138 Potassium Level 4.6 4.5 Chloride Level 106 105 Carbon Dioxide Level 28 27 Anion Gap 11 11 Blood Urea Nitrogen 19 19 Creatinine 0.96 0.90 Glucose Level 123 121 Calcium Level 9.5 9.2 Phosphorus Level 3.2 Magnesium Level 1.8 1.7 Albumin 3.2 L Bedside Glucose 141 134 Test 05/10/17 19:27 05/10/17 20:30 05/10/17 21:40 05/11/17 00:10 Bedside Glucose 165 154 160 Sodium Level 137 Potassium Level 4.7 Chloride Level 107 Carbon Dioxide Level 26 Anion Gap 9 Blood Urea Nitrogen 19 Creatinine 0.89 Glucose Level 110 Calcium Level 9.3 Magnesium Level 1.8 Test 05/11/17 00:13 05/11/17 00:15 05/11/17 01:50 05/11/17 02:57 Bedside Glucose 124 115 139 Prothrombin Time 30.8 H Prothrombin Time Ratio 2.4 INR International Normalized Ratio 2.91 Activated Partial Thromboplast Time 33.4 Test 05/11/17 03:10 05/11/17 03:46 05/11/17 04:38 05/11/17 05:50 White Blood Count 5.6 Red Blood Count 2.80 L Hemoglobin 7.7 L Hematocrit 23.9 L Mean Corpuscular Volume 85.4 Mean Corpuscular Hemoglobin 27.5 L Mean Corpuscular Hemoglobin Concent 32.2 Red Cell Distribution Width 13.2 Platelet Count 157 Mean Platelet Volume 12.2 H Neutrophils % 79.1 H Lymphocytes % 11.0 L Monocytes % 8.2 Eosinophils % 1.1 Basophils % 0.2 Nucleated Red Blood Cells % 0.0 Neutrophils # 4.5 Lymphocytes # 0.6 L Monocytes # 0.5 Eosinophils # 0.1 Basophils # 0.0 Nucleated Red Blood Cells # 0.0 Prothrombin Time 29.7 H Prothrombin Time Ratio 2.3 INR International Normalized Ratio 2.78 Activated Partial Thromboplast Time 35.0 Sodium Level 138 Potassium Level 4.5 Chloride Level 105 Carbon Dioxide Level 28 Anion Gap 10 Blood Urea Nitrogen 19 Creatinine 0.85 Glucose Level 113 Calcium Level 9.0 Phosphorus Level 2.9 Magnesium Level 1.7 Albumin 3.2 L Bedside Glucose 132 139 131 Test 05/11/17 06:06 05/11/17 06:25 05/11/17 08:13 05/11/17 10:59 White Blood Count 6.3 Red Blood Count 2.89 L Hemoglobin 8.2 L Hematocrit 24.8 L Mean Corpuscular Volume 85.8 Mean Corpuscular Hemoglobin 28.4 L Mean Corpuscular Hemoglobin Concent 33.1 Red Cell Distribution Width 13.2 Platelet Count 160 Mean Platelet Volume 12.0 H Neutrophils % 80.2 H Lymphocytes % 9.8 L Monocytes % 8.2 Eosinophils % 1.0 Basophils % 0.3 Nucleated Red Blood Cells % 0.0 Neutrophils # 5.0 Lymphocytes # 0.6 L Monocytes # 0.5 Eosinophils # 0.1 Basophils # 0.0 Nucleated Red Blood Cells # 0.0 Bedside Glucose 131 125 141 Test 05/11/17 12:54 Bedside Glucose 166 Medications Medications Current Medications Acetaminophen (Tylenol Tab) 650 mg Q4H PRN PO NON-CARDIAC PAIN LEVEL (1-3) Last administered on 05/10/17t 19:39; Admin Dose 650 MG; Start 05/04/17 at 14: 30 Al Hydrox/Mg Hydrox/Simethicone (Mag-Al Plus) 30 ml Q4H PRN PO GASTROINTESTINAL UPSET; Start 05/04/17 at 14:30 Ondansetron HCl (Zofran Inj) 4 mg Q4H PRN IV NAUSEA AND/OR VOMITING; Start at 14:30 Atorvastatin Calcium (Lipitor) 80 mg QHS PO Last administered on 05/10/17 20: 28; Admin Dose 80 MG; Start 05/04/17 at 21:00 Clopidogrel Bisulfate (plaVIX) 75 mg DAILY PO Last administered on 05/11/17 08:18; Admin Dose 75 MG; Start 05/05/17 at 09:00 Gabapentin (Neurontin) 300 mg BID PO Last administered on 05/11/17 08:19; Admin Dose 300 MG; Start 05/04/17 at 21:00 Isosorbide Mononitrate (Imdur) 30 mg DAILY PO Last administered on 05/11/17 08:19; Admin Dose 30 MG; Start 05/05/17 at 09:00 Fish Oil (Fish Oil) 2,000 mg BID PO Last administered on 05/11/17 08:19; Admin Dose 2,000 MG; Start 05/04/17 at 21:00 Nitroglycerin (Nitroglycerin (Sl Tab) 0.4 Mg) 1 tab Q5M PRN SL CHEST PAIN; Start 05/04/17 at 15:30 Morphine Sulfate (morphine) 2 mg Q4H PRN IV PAIN LEVEL 7-10 Last administered on 05/09/17 16:17; Admin Dose 2 MG; Start 05/04/17 at 15:30 Docusate Sodium (Colace) 100 mg Q12H PRN PO CONSTIPATION; Start 05/04/17 at 15 :30 Magnesium Hydroxide (Milk Of Mag) 30 ml DAILY PRN PO CONSTIPATION; Start 05/04 at 15:30 Metoprolol Tartrate (Lopressor) 25 mg BID PO Last administered on 05/11/17 08 :20; Admin Dose 25 MG; Start 05/05/17 at 21:00 Lisinopril (Zestril) 5 mg DAILY PO Last administered on 05/11/17 08:19; Admin Dose 5 MG; Start 05/09/17 at 09:00 Hydromorphone HCl (Dilaudid) 0.2 mg Q15M PRN IV PAIN LEVEL 1-5; Start at 15:00 Hydromorphone HCl (Dilaudid) 0.4 mg Q15M PRN IV PAIN LEVEL 6-10 Last administered on 05/10/17 21:52; Admin Dose 0.4 MG; Start 05/09/17 at 15:00 Morphine Sulfate (morphine) 2 mg Q2 PRN IV PAIN LEVEL 1-5 Last administered on 05/10/17 07:09; Admin Dose 2 MG; Start 05/09/17 at 15:00 Morphine Sulfate (morphine) 4 mg Q2 PRN IV PAIN LEVEL 6-10; Start 05/09/17 at 15:00 Midazolam HCl (Versed) 1 mg Q2H PRN IV AGITATION; Start 05/09/17 at 15:00 Famotidine (Pepcid Iv) 20 mg BID@08,20 IV Last administered on 05/11/17 08:18 ; Admin Dose 20 MG; Start 05/09/17 at 20:00 Acetaminophen (Tylenol Tab) 650 mg Q3H PRN PO ELEVATED TEMPERATURE; Start at 15:00 Acetaminophen (Tylenol Supp) 650 mg Q3H PRN [place] ELEVATED TEMPERATURE Last administered on 05/09/17 18:46; Admin Dose 650 MG; Start 05/09/17 at 15:00 Diagnostic Test (Pha) (Accu-Chek) 1 ea 02 XX ; Start 05/12/17 at 02:00 Diagnostic Test (Pha) (Accu-Chek) 1 ea 02 XX ; Start 05/12/17 at 02:00 Miscellaneous Information 1 ea NOTE XX ; Start 05/11/17 at 13:00 Glucose (Glutose) 15 gm Q15M PRN PO DECREASED GLUCOSE; Start 05/11/17 at 13:00 Glucose (Glutose) 22.5 gm Q15M PRN PO DECREASED GLUCOSE; Start 05/11/17 at 13: 00 Dextrose (D50w Syringe) 25 ml Q15M PRN IV DECREASED GLUCOSE; Start 05/11/17 at 13:00 Dextrose (D50w Syringe) 50 ml Q15M PRN IV DECREASED GLUCOSE; Start 05/11/17 at 13:00 Glucagon (Glucagen) 1 mg Q15M PRN IM DECREASED GLUCOSE; Start 05/11/17 at 13: 00 Glucose (Glutose) 15 gm Q15M PRN BUCCAL DECREASED GLUCOSE; Start 05/11/17 at 13:00 DAYANARA SHABAZZ May 11, 2017 14:27
--- NOTE | 2017-05-11 14:52 | PN ---
Date/Time of Note Date/Time of Note DATE: 05/11/17 TIME: 14:50 Assessment/Plan VTE Prophylaxis VTE Prophylaxis Intervention: ambulation Lines/Catheters IV Catheter Type (from Nrs): Central Line Central line still needed: Yes Urinary Cath still in place: No Assessment/Plan Chief Complaint/Hosp Course Assessment/Plan 1. 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 use parvin 7 in case of bleed s/p CABG. - PTT Mixing study showed correction - No av bleeding appreciated at this time and will continue to monitor 2. CAD s/p stenting in 2006 - 4x CABG done 05/09/17 -CT surgery recs appreciated -medications and acute surgical issues to be managed by CT surgery. -chest tubes still in -cardiology to manage meds, digoxin and BB 3. Hypothyroidism - TSH within nl limits - continue home dose of levothyroxine for now 4. Disposition -CT surgery to manage for now -extubate when able -DISPO when ready and stable. Problems: Subjective 24 Hr Interval Summary Free Text/Dictation no acute issues Exam/Review of Systems Vital Signs Vitals Vital Signs Date Time Temp Pulse Resp B/P Pulse Ox O2 Delivery O2 Flow Rate FiO2 05/11/17 13:00 117 26 117/78 93 Nasal Cannula 2.0 05/11/17 12:00 98.9 05/09/17 20:00 50 Intake and Output 05/10/17 05/10/17 05/11/17 15:00 23:00 07:00 Intake Total 693.0 ml 692.75 ml 542.25 ml Output Total 525 ml 490 ml 577 ml Balance 168.0 ml 202.75 ml -34.75 ml Exam Constitutional: alert, oriented, no acute distress Head: atraumatic, normocephalic Eyes: EOMI, PERRL, nl sclera Neck: non-tender, supple Respiratory: coarse to auscultation bilaterally. Cardiovascular: tachycardic, no obvious murmurs, midline incision. CDI. 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, nl mental status, nl speech Skin: nl turgor Results Result Diagram: 05/11/17 0606 05/11/17 0310 Results 24 hrs Laboratory Tests Test 05/10/17 16:42 05/10/17 17:58 05/10/17 17:59 05/10/17 19:27 Bedside Glucose 141 134 165 White Blood Count 6.4 Red Blood Count 3.04 L Hemoglobin 8.7 L Hematocrit 25.8 L Mean Corpuscular Volume 84.9 Mean Corpuscular Hemoglobin 28.6 L Mean Corpuscular Hemoglobin Concent 33.7 Red Cell Distribution Width 13.0 Platelet Count 165 Mean Platelet Volume 11.8 H Neutrophils % 83.3 H Lymphocytes % 7.2 L Monocytes % 8.9 Eosinophils % 0.2 Basophils % 0.2 Nucleated Red Blood Cells % 0.0 Neutrophils # 5.4 Lymphocytes # 0.5 L Monocytes # 0.6 Eosinophils # 0.0 Basophils # 0.0 Nucleated Red Blood Cells # 0.0 Prothrombin Time 27.8 H Prothrombin Time Ratio 2.2 INR International Normalized Ratio 2.56 Activated Partial Thromboplast Time 27.7 Sodium Level 138 Potassium Level 4.5 Chloride Level 105 Carbon Dioxide Level 27 Anion Gap 11 Blood Urea Nitrogen 19 Creatinine 0.90 Glucose Level 121 Calcium Level 9.2 Magnesium Level 1.7 Test 05/10/17 20:30 05/10/17 21:40 05/11/17 00:10 05/11/17 00:13 Bedside Glucose 154 160 124 Sodium Level 137 Potassium Level 4.7 Chloride Level 107 Carbon Dioxide Level 26 Anion Gap 9 Blood Urea Nitrogen 19 Creatinine 0.89 Glucose Level 110 Calcium Level 9.3 Magnesium Level 1.8 Test 05/11/17 00:15 05/11/17 01:50 05/11/17 02:57 05/11/17 03:10 Prothrombin Time 30.8 H 29.7 H Prothrombin Time Ratio 2.4 2.3 INR International Normalized Ratio 2.91 2.78 Activated Partial Thromboplast Time 33.4 35.0 Bedside Glucose 115 139 White Blood Count 5.6 Red Blood Count 2.80 L Hemoglobin 7.7 L Hematocrit 23.9 L Mean Corpuscular Volume 85.4 Mean Corpuscular Hemoglobin 27.5 L Mean Corpuscular Hemoglobin Concent 32.2 Red Cell Distribution Width 13.2 Platelet Count 157 Mean Platelet Volume 12.2 H Neutrophils % 79.1 H Lymphocytes % 11.0 L Monocytes % 8.2 Eosinophils % 1.1 Basophils % 0.2 Nucleated Red Blood Cells % 0.0 Neutrophils # 4.5 Lymphocytes # 0.6 L Monocytes # 0.5 Eosinophils # 0.1 Basophils # 0.0 Nucleated Red Blood Cells # 0.0 Sodium Level 138 Potassium Level 4.5 Chloride Level 105 Carbon Dioxide Level 28 Anion Gap 10 Blood Urea Nitrogen 19 Creatinine 0.85 Glucose Level 113 Calcium Level 9.0 Phosphorus Level 2.9 Magnesium Level 1.7 Albumin 3.2 L Test 05/11/17 03:46 05/11/17 04:38 05/11/17 05:50 05/11/17 06:06 Bedside Glucose 132 139 131 White Blood Count 6.3 Red Blood Count 2.89 L Hemoglobin 8.2 L Hematocrit 24.8 L Mean Corpuscular Volume 85.8 Mean Corpuscular Hemoglobin 28.4 L Mean Corpuscular Hemoglobin Concent 33.1 Red Cell Distribution Width 13.2 Platelet Count 160 Mean Platelet Volume 12.0 H Neutrophils % 80.2 H Lymphocytes % 9.8 L Monocytes % 8.2 Eosinophils % 1.0 Basophils % 0.3 Nucleated Red Blood Cells % 0.0 Neutrophils # 5.0 Lymphocytes # 0.6 L Monocytes # 0.5 Eosinophils # 0.1 Basophils # 0.0 Nucleated Red Blood Cells # 0.0 Test 05/11/17 06:25 05/11/17 08:13 05/11/17 10:59 05/11/17 12:54 Bedside Glucose 131 125 141 166 Test 05/11/17 14:26 Bedside Glucose 129 Medications Medications Current Medications Acetaminophen (Tylenol Tab) 650 mg Q4H PRN PO NON-CARDIAC PAIN LEVEL (1-3) Last administered on 05/10/17 19:39; Admin Dose 650 MG; Start 05/04/17 at 14: 30 Al Hydrox/Mg Hydrox/Simethicone (Mag-Al Plus) 30 ml Q4H PRN PO GASTROINTESTINAL UPSET; Start 05/04/17 at 14:30 Ondansetron HCl (Zofran Inj) 4 mg Q4H PRN IV NAUSEA AND/OR VOMITING; Start at 14:30 Atorvastatin Calcium (Lipitor) 80 mg QHS PO Last administered on 05/10/17 20: 28; Admin Dose 80 MG; Start 05/04/17 at 21:00 Clopidogrel Bisulfate (plaVIX) 75 mg DAILY PO Last administered on 05/11/17 08:18; Admin Dose 75 MG; Start 05/05/17 at 09:00 Gabapentin (Neurontin) 300 mg BID PO Last administered on 05/11/17 08:19; Admin Dose 300 MG; Start 05/04/17 at 21:00 Isosorbide Mononitrate (Imdur) 30 mg DAILY PO Last administered on 05/11/17 08:19; Admin Dose 30 MG; Start 05/05/17 at 09:00 Fish Oil (Fish Oil) 2,000 mg BID PO Last administered on 05/11/17 08:19; Admin Dose 2,000 MG; Start 05/04/17 at 21:00 Nitroglycerin (Nitroglycerin (Sl Tab) 0.4 Mg) 1 tab Q5M PRN SL CHEST PAIN; Start 05/04/17 at 15:30 Docusate Sodium (Colace) 100 mg Q12H PRN PO CONSTIPATION; Start 05/04/17 at 15 :30 Magnesium Hydroxide (Milk Of Mag) 30 ml DAILY PRN PO CONSTIPATION; Start 05/04 at 15:30 Lisinopril (Zestril) 5 mg DAILY PO Last administered on 05/11/17 08:19; Admin Dose 5 MG; Start 05/09/17 at 09:00 Hydromorphone HCl (Dilaudid) 0.2 mg Q15M PRN IV PAIN LEVEL 1-5; Start at 15:00 Hydromorphone HCl (Dilaudid) 0.4 mg Q15M PRN IV PAIN LEVEL 6-10 Last administered on 05/10/17 21:52; Admin Dose 0.4 MG; Start 05/09/17 at 15:00 Morphine Sulfate (morphine) 2 mg Q2 PRN IV PAIN LEVEL 1-5 Last administered on 05/10/17 07:09; Admin Dose 2 MG; Start 05/09/17 at 15:00 Morphine Sulfate (morphine) 4 mg Q2 PRN IV PAIN LEVEL 6-10; Start 05/09/17 at 15:00 Midazolam HCl (Versed) 1 mg Q2H PRN IV AGITATION; Start 05/09/17 at 15:00 Famotidine (Pepcid Iv) 20 mg BID@08,20 IV Last administered on 05/11/17 08:18 ; Admin Dose 20 MG; Start 05/09/17 at 20:00 Acetaminophen (Tylenol Tab) 650 mg Q3H PRN PO ELEVATED TEMPERATURE; Start at 15:00 Acetaminophen (Tylenol Supp) 650 mg Q3H PRN [place] ELEVATED TEMPERATURE Last administered on 05/09/17t 18:46; Admin Dose 650 MG; Start 05/09/17 at 15:00 Diagnostic Test (Pha) (Accu-Chek) 1 ea 02 XX ; Start 05/12/17 at 02:00 Miscellaneous Information 1 ea NOTE XX ; Start 05/11/17 at 13:00 Glucose (Glutose) 15 gm Q15M PRN PO DECREASED GLUCOSE; Start 05/11/17 at 13:00 Glucose (Glutose) 22.5 gm Q15M PRN PO DECREASED GLUCOSE; Start 05/11/17 at 13: 00 Dextrose (D50w Syringe) 25 ml Q15M PRN IV DECREASED GLUCOSE; Start 05/11/17 at 13:00 Dextrose (D50w Syringe) 50 ml Q15M PRN IV DECREASED GLUCOSE; Start 05/11/17 at 13:00 Glucagon (Glucagen) 1 mg Q15M PRN IM DECREASED GLUCOSE; Start 05/11/17 at 13: 00 Glucose (Glutose) 15 gm Q15M PRN BUCCAL DECREASED GLUCOSE; Start 05/11/17 at 13:00 Metoprolol Tartrate (Lopressor) 25 mg Q8 PO ; Start 05/11/17 at 22:00 Digoxin (Digoxin) 250 mcg Q6H IV ; Start 05/11/17 at 14:36; Stop 05/11/17 at 20:37 JESUSITA LACEY May 11, 2017 14:52
[2017-05-11] MEDS: DIGOXIN 500 MCG INJ IV SCH ×2 (14:56→20:49)
--- NOTE | 2017-05-11 16:03 | CONS ---
Date/Time of Note Date/Time of Note DATE: 05/11/17 TIME: 16:01 Assessment/Plan Assessment/Plan Chief Complaint/Hosp Course #Coagulopathy -Per the patient and his family, pt has factor VII deficiency -pt was given Zara 7 2mg intraoperatively -give patient appears stable I would not given another dose at this time unless there is a concern for post op bleed #Multivessel disease CAD -s/p CABG -continue Beta Blockade -meds per cardiology #HTN -BP ok -continue strict blood pressure control per cardiology Problems: Consultation Date/Type/Reason Admit Date/Time May 04, 2017 at 15:44 Initial Consult Date 05/05/17 Type of Consultation: hematology Reason for Consultation coagulopathy Referring Provider: DAYANARA SHABAZZ 24 HR Interval Summary Free Text/Dictation Hg trended down a little but there are now signs of bleeding Exam/Review of Systems Vital Signs Vitals Vital Signs Date Time Temp Pulse Resp B/P Pulse Ox O2 Delivery O2 Flow Rate FiO2 05/11/17 15:00 123 30 121/76 90 Nasal Cannula 2.0 05/11/17 12:00 98.9 05/09/17 20:00 50 Intake and Output 05/10/17 05/10/17 05/11/17 15:00 23:00 07:00 Intake Total 693.0 ml 692.75 ml 542.25 ml Output Total 525 ml 490 ml 577 ml Balance 168.0 ml 202.75 ml -34.75 ml Exam Constitutional: alert, oriented Psych: no complaints Head: normocephalic Eyes: nl conjunctiva ENMT: nl external ears & nose Neck: non-tender, supple Respiratory: clear to auscultation Cardiovascular: other (sternotomy scar), regular rate and rhythm Gastrointestinal: soft Musculoskeletal: nl extremities to inspection Extremities: normal pulses Results Result Diagram: 05/11/17 0606 05/11/17 0310 Results 24 hrs Laboratory Tests Test 05/10/17 16:42 05/10/17 17:58 05/10/17 17:59 05/10/17 19:27 Bedside Glucose 141 134 165 White Blood Count 6.4 Red Blood Count 3.04 L Hemoglobin 8.7 L Hematocrit 25.8 L Mean Corpuscular Volume 84.9 Mean Corpuscular Hemoglobin 28.6 L Mean Corpuscular Hemoglobin Concent 33.7 Red Cell Distribution Width 13.0 Platelet Count 165 Mean Platelet Volume 11.8 H Neutrophils % 83.3 H Lymphocytes % 7.2 L Monocytes % 8.9 Eosinophils % 0.2 Basophils % 0.2 Nucleated Red Blood Cells % 0.0 Neutrophils # 5.4 Lymphocytes # 0.5 L Monocytes # 0.6 Eosinophils # 0.0 Basophils # 0.0 Nucleated Red Blood Cells # 0.0 Prothrombin Time 27.8 H Prothrombin Time Ratio 2.2 INR International Normalized Ratio 2.56 Activated Partial Thromboplast Time 27.7 Sodium Level 138 Potassium Level 4.5 Chloride Level 105 Carbon Dioxide Level 27 Anion Gap 11 Blood Urea Nitrogen 19 Creatinine 0.90 Glucose Level 121 Calcium Level 9.2 Magnesium Level 1.7 Test 05/10/17 20:30 05/10/17 21:40 05/11/17 00:10 05/11/17 00:13 Bedside Glucose 154 160 124 Sodium Level 137 Potassium Level 4.7 Chloride Level 107 Carbon Dioxide Level 26 Anion Gap 9 Blood Urea Nitrogen 19 Creatinine 0.89 Glucose Level 110 Calcium Level 9.3 Magnesium Level 1.8 Test 05/11/17 00:15 05/11/17 01:50 05/11/17 02:57 05/11/17 03:10 Prothrombin Time 30.8 H 29.7 H Prothrombin Time Ratio 2.4 2.3 INR International Normalized Ratio 2.91 2.78 Activated Partial Thromboplast Time 33.4 35.0 Bedside Glucose 115 139 White Blood Count 5.6 Red Blood Count 2.80 L Hemoglobin 7.7 L Hematocrit 23.9 L Mean Corpuscular Volume 85.4 Mean Corpuscular Hemoglobin 27.5 L Mean Corpuscular Hemoglobin Concent 32.2 Red Cell Distribution Width 13.2 Platelet Count 157 Mean Platelet Volume 12.2 H Neutrophils % 79.1 H Lymphocytes % 11.0 L Monocytes % 8.2 Eosinophils % 1.1 Basophils % 0.2 Nucleated Red Blood Cells % 0.0 Neutrophils # 4.5 Lymphocytes # 0.6 L Monocytes # 0.5 Eosinophils # 0.1 Basophils # 0.0 Nucleated Red Blood Cells # 0.0 Sodium Level 138 Potassium Level 4.5 Chloride Level 105 Carbon Dioxide Level 28 Anion Gap 10 Blood Urea Nitrogen 19 Creatinine 0.85 Glucose Level 113 Calcium Level 9.0 Phosphorus Level 2.9 Magnesium Level 1.7 Albumin 3.2 L Test 05/11/17 03:46 05/11/17 04:38 05/11/17 05:50 05/11/17 06:06 Bedside Glucose 132 139 131 White Blood Count 6.3 Red Blood Count 2.89 L Hemoglobin 8.2 L Hematocrit 24.8 L Mean Corpuscular Volume 85.8 Mean Corpuscular Hemoglobin 28.4 L Mean Corpuscular Hemoglobin Concent 33.1 Red Cell Distribution Width 13.2 Platelet Count 160 Mean Platelet Volume 12.0 H Neutrophils % 80.2 H Lymphocytes % 9.8 L Monocytes % 8.2 Eosinophils % 1.0 Basophils % 0.3 Nucleated Red Blood Cells % 0.0 Neutrophils # 5.0 Lymphocytes # 0.6 L Monocytes # 0.5 Eosinophils # 0.1 Basophils # 0.0 Nucleated Red Blood Cells # 0.0 Test 05/11/17 06:25 05/11/17 08:13 05/11/17 10:59 05/11/17 12:54 Bedside Glucose 131 125 141 166 Test 05/11/17 14:26 Bedside Glucose 129 Medications Medications Current Medications Acetaminophen (Tylenol Tab) 650 mg Q4H PRN PO NON-CARDIAC PAIN LEVEL (1-3) Last administered on 05/10/17 19:39; Admin Dose 650 MG; Start 05/04/17 at 14: 30 Al Hydrox/Mg Hydrox/Simethicone (Mag-Al Plus) 30 ml Q4H PRN PO GASTROINTESTINAL UPSET; Start 05/04/17 at 14:30 Ondansetron HCl (Zofran Inj) 4 mg Q4H PRN IV NAUSEA AND/OR VOMITING; Start at 14:30 Atorvastatin Calcium (Lipitor) 80 mg QHS PO Last administered on 05/10/17 20: 28; Admin Dose 80 MG; Start 05/04/17 at 21:00 Clopidogrel Bisulfate (plaVIX) 75 mg DAILY PO Last administered on 05/11/17 08:18; Admin Dose 75 MG; Start 05/05/17 at 09:00 Gabapentin (Neurontin) 300 mg BID PO Last administered on 05/11/17 08:19; Admin Dose 300 MG; Start 05/04/17 at 21:00 Isosorbide Mononitrate (Imdur) 30 mg DAILY PO Last administered on 05/11/17 08:19; Admin Dose 30 MG; Start 05/05/17 at 09:00 Fish Oil (Fish Oil) 2,000 mg BID PO Last administered on 05/11/17 08:19; Admin Dose 2,000 MG; Start 05/04/17 at 21:00 Nitroglycerin (Nitroglycerin (Sl Tab) 0.4 Mg) 1 tab Q5M PRN SL CHEST PAIN; Start 05/04/17 at 15:30 Docusate Sodium (Colace) 100 mg Q12H PRN PO CONSTIPATION; Start 05/04/17 at 15 :30 Magnesium Hydroxide (Milk Of Mag) 30 ml DAILY PRN PO CONSTIPATION; Start 05/04 at 15:30 Lisinopril (Zestril) 5 mg DAILY PO Last administered on 05/11/17 08:19; Admin Dose 5 MG; Start 05/09/17 at 09:00 Hydromorphone HCl (Dilaudid) 0.2 mg Q15M PRN IV PAIN LEVEL 1-5; Start at 15:00 Hydromorphone HCl (Dilaudid) 0.4 mg Q15M PRN IV PAIN LEVEL 6-10 Last administered on 05/10/17 21:52; Admin Dose 0.4 MG; Start 05/09/17 at 15:00 Morphine Sulfate (morphine) 2 mg Q2 PRN IV PAIN LEVEL 1-5 Last administered on 05/10/17 07:09; Admin Dose 2 MG; Start 05/09/17 at 15:00 Morphine Sulfate (morphine) 4 mg Q2 PRN IV PAIN LEVEL 6-10; Start 05/09/17 at 15:00 Midazolam HCl (Versed) 1 mg Q2H PRN IV AGITATION; Start 05/09/17 at 15:00 Famotidine (Pepcid Iv) 20 mg BID@08,20 IV Last administered on 05/11/17 08:18 ; Admin Dose 20 MG; Start 05/09/17 at 20:00 Acetaminophen (Tylenol Tab) 650 mg Q3H PRN PO ELEVATED TEMPERATURE; Start at 15:00 Acetaminophen (Tylenol Supp) 650 mg Q3H PRN [place] ELEVATED TEMPERATURE Last administered on 05/09/17 18:46; Admin Dose 650 MG; Start 05/09/17 at 15:00 Diagnostic Test (Pha) (Accu-Chek) 1 02 XX ; Start 05/12/17 at 02:00 Miscellaneous Information 1 ea NOTE XX ; Start 05/11/17 at 13:00 Glucose (Glutose) 15 gm Q15M PRN PO DECREASED GLUCOSE; Start 05/11/17 at 13:00 Glucose (Glutose) 22.5 gm Q15M PRN PO DECREASED GLUCOSE; Start 05/11/17 at 13: 00 Dextrose (D50w Syringe) 25 ml Q15M PRN IV DECREASED GLUCOSE; Start 05/11/17 at 13:00 Dextrose (D50w Syringe) 50 ml Q15M PRN IV DECREASED GLUCOSE; Start 05/11/17 at 13:00 Glucagon (Glucagen) 1 mg Q15M PRN IM DECREASED GLUCOSE; Start 05/11/17 at 13: 00 Glucose (Glutose) 15 gm Q15M PRN BUCCAL DECREASED GLUCOSE; Start 05/11/17 at 13:00 Metoprolol Tartrate (Lopressor) 25 mg Q8 PO ; Start 05/11/17 at 22:00 Digoxin (Digoxin) 250 mcg Q6H IV Last administered on 05/11/17t 14:56; Admin Dose 250 MCG; Start 05/11/17 at 14:36; Stop 05/11/17 at 20:37 KERRY WILLS M.D. May 11, 2017 16:03
[2017-05-11] MEDS: INSULIN ASPART [NOVOLOG] 3 ML PEN SC SCH ×2 (17:27→20:51)
--- NOTE | 2017-05-11 19:12 | PN ---
Date/Time of Note Date/Time of Note DATE: 05/11/17 TIME: 19:11 Assessment/Plan Lines/Catheters IV Catheter Type (from Nrs): Central Line Harding in Place (from Nrs): No Assessment/Plan Chief Complaint/Hosp Course IMPRESSION: 1. Coronary artery disease. 2. Coagulopathy. RECOMMENDATIONS: We will proceed with coronary artery bypass grafting after recommendations from hematology/oncology. Discussed with the patient the risks , benefits, complications, alternative therapies explained to the patient and the family. All questions answered. SP CABG Ambulation pulm toilet discussed with the family Problems: Subjective 24 Hr Interval Summary Constitutional: improved Pain Control: mild Exam/Review of Systems Vital Signs Vitals Vital Signs Date Time Temp Pulse Resp B/P Pulse Ox O2 Delivery O2 Flow Rate FiO2 05/11/17 18:30 127 30 125/80 94 Nasal Cannula 2.0 05/11/17 16:00 98.8 05/09/17 20:00 50 Intake and Output 05/10/17 05/10/17 05/11/17 15:00 23:00 07:00 Intake Total 693.0 ml 692.75 ml 542.25 ml Output Total 525 ml 490 ml 577 ml Balance 168.0 ml 202.75 ml -34.75 ml Exam Eyes: EOMI, nl conjunctiva, nl lids, nl sclera ENMT: mucosa pink and moist, nl external ears & nose, nl lips & teeth, nl nasal mucosa & septum Neck: non-tender, supple Respiratory: clear to auscultation, normal air movement Results Result Diagram: 05/11/17 0606 05/11/17 0310 MARYAM TORRE MD May 11, 2017 19:12
[2017-05-11] MEDS: ATORVASTATIN 80 MG TAB PO SCH (20:56)
[2017-05-11] MEDS: HYDROmorphONE 0.5 MG/0.5 ML SYG IV PRN (21:43)
[2017-05-12] VITALS (21 sets, daily range): BP systolic 91–130; BP diastolic 63–89; PULSE 103–126; RESP 17–32
[2017-05-12] MEDS ORDERED: ACCU-CHEK XX SCH (02:00)
[2017-05-12 05:31] LABS: INR 2.26; PROTIME 25.2 Sec (12.2-14.2)
[2017-05-12 05:32] LABS: PARTIAL THROMBOPLASTIN TIME 33.4 Sec (25.0-35.0)
[2017-05-12 05:55] LABS: CALCIUM 8.7 mg/dl (8.4-10.2); CREATININE 0.89 mg/dl (0.61-1.24); POTASSIUM 4.3 mmol/L (3.5-5.1)
[2017-05-12] MEDS: METOPROLOL 25 MG TAB PO SCH ×2 (06:19→15:07)
[2017-05-12] MEDS: LEVOTHYROXINE 100 MCG TAB PO SCH (06:19)
[2017-05-12] MEDS: POTASSIUM CHLORIDE 50 ML IVPB PRN (06:37)
[2017-05-12] MEDS: INSULIN ASPART [NOVOLOG] 3 ML PEN SC SCH ×4 (07:35→20:24)
[2017-05-12] MEDS: GABAPENTIN 300 MG CAP PO SCH ×2 (08:22→20:27)
[2017-05-12] MEDS: ISOSORBIDE MONONITRATE(SR)30 MG TAB PO SCH (08:22)
[2017-05-12] MEDS: LISINOPRIL 5 MG TAB PO SCH (08:22)
[2017-05-12] MEDS: CLOPIDOGREL 75 MG TAB PO SCH (08:22)
[2017-05-12] MEDS: FAMOTIDINE 20 MG TAB PO SCH ×2 (08:23→20:27)
[2017-05-12] MEDS: FISH OIL 1,000 MG CAP PO SCH ×2 (08:23→20:25)
--- NOTE | 2017-05-12 10:29 | PN ---
Date/Time of Note Date/Time of Note DATE: 05/12/17 TIME: 10:27 Assessment/Plan Lines/Catheters IV C[facility]ter Type (from [facility] Cordis Harding in Place (from Nrs): No Assessment/Plan Chief Complaint/Hosp Course IMPRESSION: 1. Coronary artery disease. 2. Coagulopathy. RECOMMENDATIONS: We will proceed with coronary artery bypass grafting after recommendations from hematology/oncology. Discussed with the patient the risks , benefits, complications, alternative therapies explained to the patient and the family. All questions answered. SP CABG Ambulation pulm toilet DC CT tomorrow discussed with the family Problems: Subjective 24 Hr Interval Summary Constitutional: improved Pain Control: mild Exam/Review of Systems Vital Signs Vitals Vital Signs Date Time Temp Pulse Resp B/P Pulse Ox O2 Delivery O2 Flow Rate FiO2 05/12/17 08:00 105 05/12/17 07:00 23 119/80 92 Nasal Cannula 2.0 05/12/17 04:00 98.4 05/12/17 00:56 27 Intake and Output 05/11/17 05/11/17 05/12/17 15:00 23:00 07:00 Intake Total 649.0 ml 320 ml Output Total 525 ml 515 ml 890 ml Balance 124.0 ml -195 ml -890 ml Exam Neck: non-tender, supple Respiratory: clear to auscultation, normal air movement Cardiovascular: nl pulses, regular rate and rhythm Gastrointestinal: nl liver, spleen, non-tender, soft Results Result Diagram: 05/11/17 0606 05/12/17 0325 MARYAM TORRE MD May 12, 2017 10:29
[2017-05-12] MEDS: ACETAMINOPHEN 325 MG TAB PO PRN (12:51)
--- NOTE | 2017-05-12 13:21 | RADRPT ---
PROCEDURE: XR Chest. CLINICAL INDICATION: Shortness of breath. TECHNIQUE: Single frontal view. COMPARISON: 05/09/2017. FINDINGS: The endotracheal tube and [place]-Angi catheter have been removed. Mediastinal drains are present. The right internal jugular vein sheath catheter remains in position. There are sternal wires and mediast inal clips. Mild atelectasis at the lung bases is worse than seen previously. The heart size is normal. There is a small right pleural effusion and moderate left pleural effusion. There is no pneumothorax. IMPRESSION: 1. [place]-Angi catheter and endotracheal tube removed. 2. Worse appearance of the lungs. 3. Small right pleural effusion and moderate left pleural effusion. RPTAT: QQ .Nhan Wild MD, MD Date Time Electronically viewed and signed by .Nhan Wild MD, on 05/12/2017 13:21 .R/
--- NOTE | 2017-05-12 13:31 | RADRPT ---
Vent Rate: 116 bpm RR Interval: 0 msec TN Interval: 134 msec QRS Duration: 82 msec QT Interval: 310 msec QTC Interval: 430 msec P-R-T [place]: 51 - 32 - 104 degrees Sinus tachycardia Nonspecific T wave abnormality Abnormal ECG Electronically Signed By: Medardo Fajardo [id number]
--- NOTE | 2017-05-12 14:52 | PN ---
Date/Time of Note Date/Time of Note DATE: 05/12/17 TIME: 14:52 Assessment/Plan VTE Prophylaxis VTE Prophylaxis Intervention: ambulation Lines/Catheters IV [facility]ter Type (from [facility] Cord[facility] Urinary Cath still in place: No Assessment/Plan Chief Complaint/Hosp Course Assessment/Plan 1. 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 use parvin 7 in case of bleed s/p CABG. - PTT Mixing study showed correction - No av bleeding appreciated at this time and will continue to monitor 2. CAD s/p stenting in 2006 - 4x CABG done 05/09/17 -CT surgery recs appreciated -medications and acute surgical issues to be managed by CT surgery. -chest tubes still in -cardiology to manage meds, digoxin and BB 3. Hypothyroidism - TSH within nl limits - continue home dose of levothyroxine for now 4. Disposition -CT surgery to manage for now -downgrade when able -DISPO when ready and stable. Problems: Subjective 24 Hr Interval Summary Free Text/Dictation no acute complaints Exam/Review of Systems Vital Signs Vitals Vital Signs Date Time Temp Pulse Resp B/P Pulse Ox O2 Delivery O2 Flow Rate FiO2 05/12/17 12:00 99.6 118 27 108/80 97 Nasal Cannula 3.0 05/12/17 00:56 27 Intake and Output 05/11/17 05/11/17 05/12/17 15:00 23:00 07:00 Intake Total 649.0 ml 320 ml Output Total 525 ml 515 ml 890 ml Balance 124.0 ml -195 ml -890 ml Exam Constitutional: alert, oriented, no acute distress Head: atraumatic, normocephalic Eyes: EOMI, PERRL, nl sclera Neck: non-tender, supple Respiratory: coarse to auscultation bilaterally. Cardiovascular: tachycardic, no obvious murmurs, midline incision. CDI. Chest tubes in Gastrointestinal: bowel sounds, non distended Musculoskeletal: nl extremities to inspection Extremities: normal pulses, No clubbing, No cyanosis, Neurological: [employer] II-XII intact, nl mental status, nl speech Skin: nl turgor Results Result Diagram: 05/11/17 0606 05/12/17 0325 Results 24 hrs Laboratory Tests Test 05/11/17 17:17 05/11/17 20:50 05/12/17 03:25 05/12/17 08:21 Bedside Glucose 123 136 114 Prothrombin Time 25.2 H Prothrombin Time Ratio 2.0 INR International Normalized Ratio 2.26 Activated Partial Thromboplast Time 33.4 Sodium Level 143 Potassium Level 4.3 Chloride Level 105 Carbon Dioxide Level 29 Anion Gap 13 Blood Urea Nitrogen 18 Creatinine 0.89 Glucose Level 114 Calcium Level 8.7 Magnesium Level 2.0 Test 05/12/17 12:13 05/12/17 12:46 Lab Scanned Report REFERENCE LAB Bedside Glucose 106 Medications Medications Current Medications Acetaminophen (Tylenol Tab) 650 mg Q4H PRN PO NON-CARDIAC PAIN LEVEL (1-3) Last administered on 05/12/17 12:51; Admin Dose 650 MG; Start 05/04/17 at 14: 30 Al Hydrox/Mg Hydrox/Simethicone (Mag-Al Plus) 30 ml Q4H PRN PO GASTROINTESTINAL UPSET; Start 05/04/17 at 14:30 Ondansetron HCl (Zofran Inj) 4 mg Q4H PRN IV NAUSEA AND/OR VOMITING; Start at 14:30 Atorvastatin Calcium (Lipitor) 80 mg QHS PO Last administered on 05/11/17 20: 56; Admin Dose 80 MG; Start 05/04/17 at 21:00 Clopidogrel Bisulfate (plaVIX) 75 mg DAILY PO Last administered on 05/12/17 08:22; Admin Dose 75 MG; Start 05/05/17 at 09:00 Gabapentin (Neurontin) 300 mg BID PO Last administered on 05/12/17 08:22; Admin Dose 300 MG; Start 05/04/17 at 21:00 Isosorbide Mononitrate (Imdur) 30 mg DAILY PO Last administered on 05/12/17 08:22; Admin Dose 30 MG; Start 05/05/17 at 09:00 Fish Oil (Fish Oil) 2,000 mg BID PO Last administered on 05/12/17 08:23; Admin Dose 2,000 MG; Start 05/04/17 at 21:00 Nitroglycerin (Nitroglycerin (Sl Tab) 0.4 Mg) 1 tab Q5M PRN SL CHEST PAIN; Start 05/04/17 at 15:30 Docusate Sodium (Colace) 100 mg Q12H PRN PO CONSTIPATION; Start 05/04/17 at 15 :30 Magnesium Hydroxide (Milk Of Mag) 30 ml DAILY PRN PO CONSTIPATION; Start 05/04 at 15:30 Lisinopril (Zestril) 5 mg DAILY PO Last administered on 05/12/17 08:22; Admin Dose 5 MG; Start 05/09/17 at 09:00 Hydromorphone HCl (Dilaudid) 0.2 mg Q15M PRN IV PAIN LEVEL 1-5; Start at 15:00 Hydromorphone HCl (Dilaudid) 0.4 mg Q15M PRN IV PAIN LEVEL 6-10 Last administered on 05/11/17 21:43; Admin Dose 0.4 MG; Start 05/09/17 at 15:00 Morphine Sulfate (morphine) 2 mg Q2 PRN IV PAIN LEVEL 1-5 Last administered on 05/10/17 07:09; Admin Dose 2 MG; Start 05/09/17 at 15:00 Morphine Sulfate (morphine) 4 mg Q2 PRN IV PAIN LEVEL 6-10; Start 05/09/17 at 15:00 Midazolam HCl (Versed) 1 mg Q2H PRN IV AGITATION; Start 05/09/17 at 15:00 Acetaminophen (Tylenol Tab) 650 mg Q3H PRN PO ELEVATED TEMPERATURE; Start at 15:00 Acetaminophen (Tylenol Supp) 650 mg Q3H PRN [place] ELEVATED TEMPERATURE Last administered on 05/09/17 18:46; Admin Dose 650 MG; Start 05/09/17 at 15:00 Diagnostic Test (Pha) (Accu-Chek) 1 ea 02 XX ; Start 05/12/17 at 02:00 Miscellaneous Information 1 ea NOTE XX ; Start 05/11/17 at 13:00 Glucose (Glutose) 15 gm Q15M PRN PO DECREASED GLUCOSE; Start 05/11/17 at 13:00 Glucose (Glutose) 22.5 gm Q15M PRN PO DECREASED GLUCOSE; Start 05/11/17 at 13: 00 Dextrose (D50w Syringe) 25 ml Q15M PRN IV DECREASED GLUCOSE; Start 05/11/17 at 13:00 Dextrose (D50w Syringe) 50 ml Q15M PRN IV DECREASED GLUCOSE; Start 05/11/17 at 13:00 Glucagon (Glucagen) 1 mg Q15M PRN IM DECREASED GLUCOSE; Start 05/11/17 at 13: 00 Glucose (Glutose) 15 gm Q15M PRN BUCCAL DECREASED GLUCOSE; Start 05/11/17 at 13:00 Metoprolol Tartrate (Lopressor) 25 mg Q8 PO Last administered on 05/12/17 06: 19; Admin Dose 25 MG; Start 05/11/17 at 22:00 Famotidine (Pepcid) 20 mg BID@08,20 PO Last administered on 05/12/17 08:23; Admin Dose 20 MG; Start 05/12/17 at 08:00 JESUSITA LACEY May 12, 2017 14:52
--- NOTE | 2017-05-12 18:59 | CONS ---
Date/Time of Note Date/Time of Note DATE: 05/12/17 TIME: 18:58 Assessment/Plan Assessment/Plan Chief Complaint/Hosp Course #Coagulopathy -Per the patient and his family, pt has factor VII deficiency -pt was given Zara 7 2mg intraoperatively -give patient appears stable I would not given another dose at this time unless there is a concern for post op bleed -currently there is no evidence of bleed #Multivessel disease CAD -s/p CABG -continue Beta Blockade -meds per cardiology #HTN -BP ok -continue strict blood pressure control per cardiology Problems: Consultation Date/Type/Reason Admit Date/Time May 04, 2017 at 15:44 Initial Consult Date 05/05/17 Type of Consultation: hematology Reason for Consultation coagulopathy Referring Provider: DAYANARA SHABAZZ 24 HR Interval Summary Free Text/Dictation no bleeding overnight Exam/Review of Systems Vital Signs Vitals Vital Signs Date Time Temp Pulse Resp B/P Pulse Ox O2 Delivery O2 Flow Rate FiO2 05/12/17 17:14 115 05/12/17 16:00 99.0 26 101/70 95 Nasal Cannula 3.0 05/12/17 00:56 27 Intake and Output 05/11/17 05/11/17 05/12/17 15:00 23:00 07:00 Intake Total 649.0 ml 320 ml Output Total 525 ml 515 ml 890 ml Balance 124.0 ml -195 ml -890 ml Exam Constitutional: alert, oriented Psych: no complaints Head: normocephalic Eyes: EOMI, nl conjunctiva ENMT: nl external ears & nose Neck: non-tender, No supple Respiratory: clear to auscultation Cardiovascular: regular rate and rhythm Gastrointestinal: soft Musculoskeletal: nl extremities to inspection Results Result Diagram: 05/11/17 0606 05/12/17 0325 Results 24 hrs Laboratory Tests Test 05/11/17 20:50 05/12/17 03:25 05/12/17 08:21 05/12/17 12:13 Bedside Glucose 136 114 Prothrombin Time 25.2 H Prothrombin Time Ratio 2.0 INR International Normalized Ratio 2.26 Activated Partial Thromboplast Time 33.4 Sodium Level 143 Potassium Level 4.3 Chloride Level 105 Carbon Dioxide Level 29 Anion Gap 13 Blood Urea Nitrogen 18 Creatinine 0.89 Glucose Level 114 Calcium Level 8.7 Magnesium Level 2.0 Lab Scanned Report REFERENCE LAB Test 05/12/17 12:46 05/12/17 18:11 Bedside Glucose 106 115 Medications Medications Current Medications Al Hydrox/Mg Hydrox/Simethicone (Mag-Al Plus) 30 ml Q4H PRN PO GASTROINTESTINAL UPSET; Start 05/04/17 at 14:30 Ondansetron HCl (Zofran Inj) 4 mg Q4H PRN IV NAUSEA AND/OR VOMITING; Start at 14:30 Atorvastatin Calcium (Lipitor) 80 mg QHS PO Last administered on 05/11/17 20: 56; Admin Dose 80 MG; Start 05/04/17 at 21:00 Clopidogrel Bisulfate (plaVIX) 75 mg DAILY PO Last administered on 05/12/17 08:22; Admin Dose 75 MG; Start 05/05/17 at 09:00 Gabapentin (Neurontin) 300 mg BID PO Last administered on 05/12/17 08:22; Admin Dose 300 MG; Start 05/04/17 at 21:00 Isosorbide Mononitrate (Imdur) 30 mg DAILY PO Last administered on 05/12/17 08:22; Admin Dose 30 MG; Start 05/05/17 at 09:00 Fish Oil (Fish Oil) 2,000 mg BID PO Last administered on 05/12/17 08:23; Admin Dose 2,000 MG; Start 05/04/17 at 21:00 Nitroglycerin (Nitroglycerin (Sl Tab) 0.4 Mg) 1 tab Q5M PRN SL CHEST PAIN; Start 05/04/17 at 15:30 Docusate Sodium (Colace) 100 mg Q12H PRN PO CONSTIPATION; Start 05/04/17 at 15 :30 Magnesium Hydroxide (Milk Of Mag) 30 ml DAILY PRN PO CONSTIPATION; Start 05/04 at 15:30 Lisinopril (Zestril) 5 mg DAILY PO Last administered on 05/12/17 08:22; Admin Dose 5 MG; Start 05/09/17 at 09:00 Hydromorphone HCl (Dilaudid) 0.2 mg Q15M PRN IV PAIN LEVEL 1-5; Start at 15:00 Hydromorphone HCl (Dilaudid) 0.4 mg Q15M PRN IV PAIN LEVEL 6-10 Last administered on 05/11/17 21:43; Admin Dose 0.4 MG; Start 05/09/17 at 15:00 Morphine Sulfate (morphine) 2 mg Q2 PRN IV PAIN LEVEL 1-5 Last administered on 05/10/17 07:09; Admin Dose 2 MG; Start 05/09/17 at 15:00 Morphine Sulfate (morphine) 4 mg Q2 PRN IV PAIN LEVEL 6-10; Start 05/09/17 at 15:00 Midazolam HCl (Versed) 1 mg Q2H PRN IV AGITATION; Start 05/09/17 at 15:00 Acetaminophen (Tylenol Tab) 650 mg Q3H PRN PO ELEVATED TEMPERATURE; Start at 15:00 Acetaminophen (Tylenol Supp) 650 mg Q3H PRN [place] ELEVATED TEMPERATURE Last administered on 05/09/17 18:46; Admin Dose 650 MG; Start 05/09/17 at 15:00 Diagnostic Test (Pha) (Accu-Chek) 1 ea 02 XX ; Start 05/12/17 at 02:00 Miscellaneous Information 1 ea NOTE XX ; Start 05/11/17 at 13:00 Glucose (Glutose) 15 gm Q15M PRN PO DECREASED GLUCOSE; Start 05/11/17 at 13:00 Glucose (Glutose) 22.5 gm Q15M PRN PO DECREASED GLUCOSE; Start 05/11/17 at 13: 00 Dextrose (D50w Syringe) 25 ml Q15M PRN IV DECREASED GLUCOSE; Start 05/11/17 at 13:00 Dextrose (D50w Syringe) 50 ml Q15M PRN IV DECREASED GLUCOSE; Start 05/11/17 at 13:00 Glucagon (Glucagen) 1 mg Q15M PRN IM DECREASED GLUCOSE; Start 05/11/17 at 13: 00 Glucose (Glutose) 15 gm Q15M PRN BUCCAL DECREASED GLUCOSE; Start 05/11/17 at 13:00 Metoprolol Tartrate (Lopressor) 25 mg Q8 PO Last administered on 05/12/17 15: 07; Admin Dose 25 MG; Start 05/11/17 at 22:00 Famotidine (Pepcid) 20 mg BID@08,20 PO Last administered on 05/12/17 08:23; Admin Dose 20 MG; Start 05/12/17 at 08:00 KERRY WILLS M.D. May 12, 2017 18:59
--- NOTE | 2017-05-12 19:07 | CONS ---
Date/Time of Note Date/Time of Note DATE: 05/12/17 TIME: 19:04 Assessment/Plan Assessment/Plan Chief Complaint/Hosp Course IMP: 1.cad-mutivessel obstructive by [facility] 05/04. Now POD# 2 s/p 4 vessel cabg(VALDEZ- LAD, SVG-PDA/diag/OM) 2.UNstable angina-secondary to cad as above 3. Coagulopathy-factor V11 def?: 4.HTN 5.HL 6. Tachycardia-S Tach ongoing Recc: -Tele -serial ecg's -Continue oral nitrates/ACEI and follow BP clsoely -Will continue plavix for now -Dose IVP digoxin -CHange BB to atenolol for possible improved HR control -Follow clsoely for any bleeding complications/appreciate all heme imput and assistance in the management of this patient Problems: Consultation Date/Type/Reason Admit Date/Time May 04, 2017 at 15:44 Initial Consult Date 05/04/2017 Type of Consultation: cardiologfy Reason for Consultation cad Referring Provider: DAYANARA SHABAZZ Exam/Review of Systems Vital Signs Vitals Vital Signs Date Time Temp Pulse Resp B/P Pulse Ox O2 Delivery O2 Flow Rate FiO2 05/12/17 17:14 115 05/12/17 16:00 99.0 26 101/70 95 Nasal Cannula 3.0 05/12/17 00:56 27 Intake and Output 05/11/17 05/11/17 05/12/17 15:00 23:00 07:00 Intake Total 649.0 ml 320 ml Output Total 525 ml 515 ml 890 ml Balance 124.0 ml -195 ml -890 ml Exam Review of Systems: CONSTITUTIONAL: No fevers, chills. PULMONARY: No sob CARDIOVASCULAR: No chest pain/palpitations GASTROINTESTINAL: No nausea/vomiting. GENITOURINARY: No hematuria/dysuria. MUSCULOSKELETAL:C/O shoulder pain PSYCHIATRIC: The patient denies depression. NEUROLOGIC: No weakness Constitutional: alert Psych: no complaints Head: normocephalic ENMT: mucosa pink and moist Neck: jvd (9 cm water), supple Respiratory: clear to auscultation Cardiovascular: other (tachycardic, regular rhythm), regular rate and rhythm Gastrointestinal: non-tender, soft Musculoskeletal: muscle tone (normal) Extremities: edema (none) Neurological: other (No focal deficits) Results Result Diagram: 05/11/17 0606 05/12/17 0325 Results 24 hrs Laboratory Tests Test 05/11/17 20:50 05/12/17 03:25 05/12/17 08:21 05/12/17 12:13 Bedside Glucose 136 114 Prothrombin Time 25.2 H Prothrombin Time Ratio 2.0 INR International Normalized Ratio 2.26 Activated Partial Thromboplast Time 33.4 Sodium Level 143 Potassium Level 4.3 Chloride Level 105 Carbon Dioxide Level 29 Anion Gap 13 Blood Urea Nitrogen 18 Creatinine 0.89 Glucose Level 114 Calcium Level 8.7 Magnesium Level 2.0 Lab Scanned Report REFERENCE LAB Test 05/12/17 12:46 05/12/17 18:11 Bedside Glucose 106 115 Medications Medications Current Medications Al Hydrox/Mg Hydrox/Simethicone (Mag-Al Plus) 30 ml Q4H PRN PO GASTROINTESTINAL UPSET; Start 05/04/17 at 14:30 Ondansetron HCl (Zofran Inj) 4 mg Q4H PRN IV NAUSEA AND/OR VOMITING; Start at 14:30 Atorvastatin Calcium (Lipitor) 80 mg QHS PO Last administered on 05/11/17 20: 56; Admin Dose 80 MG; Start 05/04/17 at 21:00 Clopidogrel Bisulfate (plaVIX) 75 mg DAILY PO Last administered on 05/12/17 08:22; Admin Dose 75 MG; Start 05/05/17 at 09:00 Gabapentin (Neurontin) 300 mg BID PO Last administered on 05/12/17 08:22; Admin Dose 300 MG; Start 05/04/17 at 21:00 Isosorbide Mononitrate (Imdur) 30 mg DAILY PO Last administered on 05/12/17 08:22; Admin Dose 30 MG; Start 05/05/17 at 09:00 Fish Oil (Fish Oil) 2,000 mg BID PO Last administered on 05/12/17 08:23; Admin Dose 2,000 MG; Start 05/04/17 at 21:00 Nitroglycerin (Nitroglycerin (Sl Tab) 0.4 Mg) 1 tab Q5M PRN SL CHEST PAIN; Start 05/04/17 at 15:30 Docusate Sodium (Colace) 100 mg Q12H PRN PO CONSTIPATION; Start 05/04/17 at 15 :30 Magnesium Hydroxide (Milk Of Mag) 30 ml DAILY PRN PO CONSTIPATION; Start 05/04 at 15:30 Lisinopril (Zestril) 5 mg DAILY PO Last administered on 05/12/17 08:22; Admin Dose 5 MG; Start 05/09/17 at 09:00 Hydromorphone HCl (Dilaudid) 0.2 mg Q15M PRN IV PAIN LEVEL 1-5; Start at 15:00 Hydromorphone HCl (Dilaudid) 0.4 mg Q15M PRN IV PAIN LEVEL 6-10 Last administered on 05/11/17 21:43; Admin Dose 0.4 MG; Start 05/09/17 at 15:00 Morphine Sulfate (morphine) 2 mg Q2 PRN IV PAIN LEVEL 1-5 Last administered on 05/10/17 07:09; Admin Dose 2 MG; Start 05/09/17 at 15:00 Morphine Sulfate (morphine) 4 mg Q2 PRN IV PAIN LEVEL 6-10; Start 05/09/17 at 15:00 Midazolam HCl (Versed) 1 mg Q2H PRN IV AGITATION; Start 05/09/17 at 15:00 Acetaminophen (Tylenol Tab) 650 mg Q3H PRN PO ELEVATED TEMPERATURE; Start at 15:00 Acetaminophen (Tylenol Supp) 650 mg Q3H PRN [place] ELEVATED TEMPERATURE Last administered on 05/09/17 18:46; Admin Dose 650 MG; Start 05/09/17 at 15:00 Diagnostic Test (Pha) (Accu-Chek) 1 ea 02 XX ; Start 05/12/17 at 02:00 Miscellaneous Information 1 ea NOTE XX ; Start 05/11/17 at 13:00 Glucose (Glutose) 15 gm Q15M PRN PO DECREASED GLUCOSE; Start 05/11/17 at 13:00 Glucose (Glutose) 22.5 gm Q15M PRN PO DECREASED GLUCOSE; Start 05/11/17 at 13: 00 Dextrose (D50w Syringe) 25 ml Q15M PRN IV DECREASED GLUCOSE; Start 05/11/17 at 13:00 Dextrose (D50w Syringe) 50 ml Q15M PRN IV DECREASED GLUCOSE; Start 05/11/17 at 13:00 Glucagon (Glucagen) 1 mg Q15M PRN IM DECREASED GLUCOSE; Start 05/11/17 at 13: 00 Glucose (Glutose) 15 gm Q15M PRN BUCCAL DECREASED GLUCOSE; Start 05/11/17 at 13:00 Metoprolol Tartrate (Lopressor) 25 mg Q8 PO Last administered on 05/12/17 15: 07; Admin Dose 25 MG; Start 05/11/17 at 22:00 Famotidine (Pepcid) 20 mg BID@08,20 PO Last administered on 05/12/17 08:23; Admin Dose 20 MG; Start 05/12/17 at 08:00 DAYANARA SHABAZZ May 12, 2017 19:07
[2017-05-12] MEDS: ATENOLOL 25 MG TAB PO SCH (20:26)
[2017-05-12] MEDS: ATORVASTATIN 80 MG TAB PO SCH (20:26)
[2017-05-12] MEDS: ZOLPIDEM 5 MG TAB PO PRN (22:30)
[2017-05-13] VITALS (11 sets, daily range): BP systolic 90–119; BP diastolic 57–78; PULSE 97–110; RESP 19–20
[2017-05-13] MEDS: ACCU-CHEK XX SCH (01:19)
[2017-05-13] MEDS: LEVOTHYROXINE 100 MCG TAB PO SCH (06:13)
[2017-05-13] MEDS: INSULIN ASPART [NOVOLOG] 3 ML PEN SC SCH ×4 (07:55→21:00)
[2017-05-13] MEDS: FISH OIL 1,000 MG CAP PO SCH ×2 (08:03→20:55)
[2017-05-13] MEDS: GABAPENTIN 300 MG CAP PO SCH ×2 (08:03→20:55)
[2017-05-13] MEDS: ATENOLOL 25 MG TAB PO SCH ×2 (08:03→20:56)
[2017-05-13] MEDS: ISOSORBIDE MONONITRATE(SR)30 MG TAB PO SCH (08:03)
[2017-05-13] MEDS: CLOPIDOGREL 75 MG TAB PO SCH (08:03)
[2017-05-13] MEDS: FAMOTIDINE 20 MG TAB PO SCH ×2 (08:03→20:55)
[2017-05-13] MEDS: LISINOPRIL 5 MG TAB PO SCH (08:04)
[2017-05-13 08:28] LABS: BASOPHILS % 0.5 % (0.0-2.0); EOSINOPHILS # 0.3 10^3/ul (0.0-0.5); EOSINOPHILS % 4.1 % (0.0-7.0); HEMATOCRIT 26.9 % (42.0-52.0); HEMOGLOBIN 8.6 g/dl (14.0-18.0); LYMPHOCYTES # 1.2 10^3/ul (0.8-2.9); LYMPHOCYTES % 16.2 % (15.0-51.0); MEAN CORPUSCULAR HEMOGLOBIN 27.7 pg (29.0-33.0); MEAN CORPUSCULAR VOLUME 86.5 fl (82.0-101.0); MEAN PLATELET VOLUME 11.4 fl (7.4-10.4); MONOCYTE # 0.7 10^3/ul (0.3-0.9); MONOCYTES % 8.8 % (0.0-11.0); NEUTROPHIL # 5.3 10^3/ul (1.6-7.5); NEUTROPHILS % 69.6 % (39.0-77.0); PLATELET COUNT 244 10^3/UL (140-415); RED BLOOD COUNT 3.11 10^6/ul (4.70-6.10); RED CELL DISTRIBUTION WIDTH 13.1 % (11.5-14.5); WHITE BLOOD COUNT 7.5 10^3/ul (4.8-10.8)
[2017-05-13 08:51] LABS: INR 1.93; PROTIME 22.2 Sec (12.2-14.2); PT RATIO 1.7
[2017-05-13 08:52] LABS: PARTIAL THROMBOPLASTIN TIME 32.9 Sec (25.0-35.0)
[2017-05-13 08:59] LABS: CREATININE 0.88 mg/dl (0.61-1.24); MAGNESIUM 2.1 mg/dl (1.7-2.5); PHOSPHORUS 2.8 mg/dl (2.5-4.9); POTASSIUM 4.1 mmol/L (3.5-5.1)
[2017-05-13] MEDS ORDERED: BISACODYL (EC) 5 MG TAB PO PRN (12:00)
--- NOTE | 2017-05-13 13:52 | PN ---
Date/Time of Note Date/Time of Note DATE: 05/13/17 TIME: 13:50 Assessment/Plan VTE Prophylaxis VTE Prophylaxis Intervention: ambulation, SCD's Lines/Catheters IV [facility]ter Type (from [facility] Peripheral IV Urinary Cath still in place: No Assessment/Plan Chief Complaint/Hosp Course Assessment/Plan #. 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 use parvin 7 in case of bleed s/p CABG. - PTT Mixing study showed correction - No av bleeding appreciated at this time and will continue to monitor #shortness of breath -pleural effusions -pulmonology consulted #pleural effusions -likely 2/2 CABG #. CAD s/p stenting in 2006 - 4x CABG done 05/09/17 -CT surgery recs appreciated -medications and acute surgical issues to be managed by CT surgery. -chest tubes still in, possible DC today -cardiology to manage meds, digoxin and BB #. Hypothyroidism - TSH within nl limits - continue home dose of levothyroxine for now #. Disposition -CT surgery to manage for now -downgrade when able -DISPO when ready and stable. Problems: Subjective 24 Hr Interval Summary Free Text/Dictation mild sob, denies distress. Exam/Review of Systems Vital Signs Vitals Vital Signs Date Time Temp Pulse Resp B/P Pulse Ox O2 Delivery O2 Flow Rate FiO2 05/13/17 12:25 97 05/13/17 11:38 98.5 19 90/57 93 05/13/17 05:42 3.0 05/12/17 20:15 Nasal Cannula 05/12/17 00:56 27 Intake and Output 05/12/17 05/12/17 05/13/17 15:00 23:00 07:00 Intake Total 450 ml 240 ml Output Total 145 ml 20 ml 300 ml Balance 305 ml -20 ml -60 ml Exam Constitutional: alert, oriented, no acute distress Head: atraumatic, normocephalic Eyes: EOMI, PERRL, nl sclera Neck: non-tender, supple Respiratory: coarse to auscultation bilaterally. Cardiovascular: tachycardic, no obvious murmurs, midline incision. CDI. Chest tubes in Gastrointestinal: bowel sounds, non distended Musculoskeletal: nl extremities to inspection Extremities: normal pulses, No clubbing, No cyanosis, Neurological: [employer] II-XII intact, nl mental status, nl speech Skin: nl turgor Results Result Diagram: 05/13/17 0725 05/13/17 0725 Results 24 hrs Laboratory Tests Test 05/12/17 18:11 05/12/17 20:11 05/13/17 07:25 05/13/17 07:47 Bedside Glucose 115 158 118 White Blood Count 7.5 Red Blood Count 3.11 L Hemoglobin 8.6 L Hematocrit 26.9 L Mean Corpuscular Volume 86.5 Mean Corpuscular Hemoglobin 27.7 L Mean Corpuscular Hemoglobin Concent 32.0 Red Cell Distribution Width 13.1 Platelet Count 244 # Mean Platelet Volume 11.4 H Neutrophils % 69.6 Lymphocytes % 16.2 Monocytes % 8.8 Eosinophils % 4.1 Basophils % 0.5 Nucleated Red Blood Cells % 0.0 Neutrophils # 5.3 Lymphocytes # 1.2 Monocytes # 0.7 Eosinophils # 0.3 Basophils # 0.0 Nucleated Red Blood Cells # 0.0 Prothrombin Time 22.2 H Prothrombin Time Ratio 1.7 INR International Normalized Ratio 1.93 Activated Partial Thromboplast Time 32.9 Sodium Level 142 Potassium Level 4.1 Chloride Level 109 Carbon Dioxide Level 27 Anion Gap 10 Blood Urea Nitrogen 25 H Creatinine 0.88 Glucose Level 102 Calcium Level 9.0 Phosphorus Level 2.8 Magnesium Level 2.1 Test 05/13/17 12:01 Bedside Glucose 114 Medications Medications Current Medications Al Hydrox/Mg Hydrox/Simethicone (Mag-Al Plus) 30 ml Q4H PRN PO GASTROINTESTINAL UPSET; Start 05/04/17 at 14:30 Ondansetron HCl (Zofran Inj) 4 mg Q4H PRN IV NAUSEA AND/OR VOMITING; Start at 14:30 Atorvastatin Calcium (Lipitor) 80 mg QHS PO Last administered on 05/12/17 20: 26; Admin Dose 80 MG; Start 05/04/17 at 21:00 Clopidogrel Bisulfate (plaVIX) 75 mg DAILY PO Last administered on 05/13/17 08:03; Admin Dose 75 MG; Start 05/05/17 at 09:00 Gabapentin (Neurontin) 300 mg BID PO Last administered on 05/13/17 08:03; Admin Dose 300 MG; Start 05/04/17 at 21:00 Isosorbide Mononitrate (Imdur) 30 mg DAILY PO Last administered on 05/13/17 08:03; Admin Dose 30 MG; Start 05/05/17 at 09:00 Fish Oil (Fish Oil) 2,000 mg BID PO Last administered on 05/13/17 08:03; Admin Dose 2,000 MG; Start 05/04/17 at 21:00 Nitroglycerin (Nitroglycerin (Sl Tab) 0.4 Mg) 1 tab Q5M PRN SL CHEST PAIN; Start 05/04/17 at 15:30 Docusate Sodium (Colace) 100 mg Q12H PRN PO CONSTIPATION; Start 05/04/17 at 15 :30 Magnesium Hydroxide (Milk Of Mag) 30 ml DAILY PRN PO CONSTIPATION; Start 05/04 at 15:30 Lisinopril (Zestril) 5 mg DAILY PO Last administered on 05/13/17 08:04; Admin Dose 5 MG; Start 05/09/17 at 09:00 Hydromorphone HCl (Dilaudid) 0.2 mg Q15M PRN IV PAIN LEVEL 1-5; Start at 15:00 Hydromorphone HCl (Dilaudid) 0.4 mg Q15M PRN IV PAIN LEVEL 6-10 Last administered on 05/11/17 21:43; Admin Dose 0.4 MG; Start 05/09/17 at 15:00 Morphine Sulfate (morphine) 2 mg Q2 PRN IV PAIN LEVEL 1-5 Last administered on 05/10/17 07:09; Admin Dose 2 MG; Start 05/09/17 at 15:00 Morphine Sulfate (morphine) 4 mg Q2 PRN IV PAIN LEVEL 6-10; Start 05/09/17 at 15:00 Midazolam HCl (Versed) 1 mg Q2H PRN IV AGITATION; Start 05/09/17 at 15:00 Acetaminophen (Tylenol Tab) 650 mg Q3H PRN PO ELEVATED TEMPERATURE; Start at 15:00 Acetaminophen (Tylenol Supp) 650 mg Q3H PRN [place] ELEVATED TEMPERATURE Last administered on 05/09/17 18:46; Admin Dose 650 MG; Start 05/09/17 at 15:00 Diagnostic Test (Pha) (Accu-Chek) 1 ea 02 XX ; Start 05/12/17 at 02:00 Miscellaneous Information 1 ea NOTE XX ; Start 05/11/17 at 13:00 Glucose (Glutose) 15 gm Q15M PRN PO DECREASED GLUCOSE; Start 05/11/17 at 13:00 Glucose (Glutose) 22.5 gm Q15M PRN PO DECREASED GLUCOSE; Start 05/11/17 at 13: 00 Dextrose (D50w Syringe) 25 ml Q15M PRN IV DECREASED GLUCOSE; Start 05/11/17 at 13:00 Dextrose (D50w Syringe) 50 ml Q15M PRN IV DECREASED GLUCOSE; Start 05/11/17 at 13:00 Glucagon (Glucagen) 1 mg Q15M PRN IM DECREASED GLUCOSE; Start 05/11/17 at 13: 00 Glucose (Glutose) 15 gm Q15M PRN BUCCAL DECREASED GLUCOSE; Start 05/11/17 at 13:00 Famotidine (Pepcid) 20 mg BID@08,20 PO Last administered on 05/13/17 08:03; Admin Dose 20 MG; Start 05/12/17 at 08:00 Atenolol (Tenormin) 25 mg BID PO Last administered on 05/13/17 08:03; Admin Dose 25 MG; Start 05/12/17 at 21:00 Influenza Virus Vaccine (Fluzone) 0.5 ml ONCE ONCE IM* ; Start 05/13/17 at 21: 00; Stop 05/13/17 at 21:01 Zolpidem Tartrate (Ambien) 10 mg HS PRN PO INSOMNIA Last administered on 22:30; Admin Dose 10 MG; Start 05/12/17 at 22:30 Bisacodyl (Dulcolax) 10 mg DAILY PRN PO CONSTIPATION Last administered on 05/13 12:25; Admin Dose 10 MG; Start 05/13/17 at 12:00 JESUSITA LACEY May 13, 2017 13:52
--- NOTE | 2017-05-13 14:21 | CONS ---
Date/Time of Note Date/Time of Note DATE: 05/13/17 TIME: 14:17 Assessment/Plan Assessment/Plan Chief Complaint/Hosp Course IMP: 1.cad-mutivessel obstructive by [facility] 05/04. Now Post-op s/p 4 vessel cabg(VALDEZ- LAD, SVG-PDA/diag/OM) 2.UNstable angina-secondary to cad as above 3. Coagulopathy-factor V11 def?: 4.HTN 5.HL 6. Tachycardia-S Tach ongoing, improving on atenolol Recc: -Tele -serial ecg's -Continue oral nitrates/ACEI and follow BP closely -Will continue plavix for now -additional dose of digoxin -Continue atenolol -Follow clsoely for any bleeding complications/appreciate all heme input and assistance in the management of this patient Problems: Consultation Date/Type/Reason Admit Date/Time May 04, 2017 at 15:44 Initial Consult Date 05/04/2017 Type of Consultation: cardiology Reason for Consultation cad Referring Provider: DAYANARA SHABAZZ Exam/Review of Systems Vital Signs Vitals Vital Signs Date Time Temp Pulse Resp B/P Pulse Ox O2 Delivery O2 Flow Rate FiO2 05/13/17 12:25 97 05/13/17 11:38 98.5 19 90/57 93 05/13/17 05:42 3.0 05/12/17 20:15 Nasal Cannula 05/12/17 00:56 27 Intake and Output 05/12/17 05/12/17 05/13/17 15:00 23:00 07:00 Intake Total 450 ml 240 ml Output Total 145 ml 20 ml 300 ml Balance 305 ml -20 ml -60 ml Exam Review of Systems: CONSTITUTIONAL: No fevers, chills. PULMONARY: No sob CARDIOVASCULAR: No chest pain/palpitations GASTROINTESTINAL: No nausea/vomiting. GENITOURINARY: No hematuria/dysuria. MUSCULOSKELETAL: No myagias/arthalgias. PSYCHIATRIC: The patient denies depression. NEUROLOGIC: No weakness Constitutional: alert Psych: no complaints Head: normocephalic ENMT: mucosa pink and moist Neck: jvd (9 cm water), supple Respiratory: diminished breath sounds (at bases/B) Cardiovascular: regular rate and rhythm Gastrointestinal: non-tender, soft Musculoskeletal: muscle tone (normal) Extremities: edema (none) Neurological: other (No focaol deficits) Results Result Diagram: 05/13/17 0725 05/13/17 0725 Results 24 hrs Laboratory Tests Test 05/12/17 18:11 05/12/17 20:11 05/13/17 07:25 05/13/17 07:47 Bedside Glucose 115 158 118 White Blood Count 7.5 Red Blood Count 3.11 L Hemoglobin 8.6 L Hematocrit 26.9 L Mean Corpuscular Volume 86.5 Mean Corpuscular Hemoglobin 27.7 L Mean Corpuscular Hemoglobin Concent 32.0 Red Cell Distribution Width 13.1 Platelet Count 244 # Mean Platelet Volume 11.4 H Neutrophils % 69.6 Lymphocytes % 16.2 Monocytes % 8.8 Eosinophils % 4.1 Basophils % 0.5 Nucleated Red Blood Cells % 0.0 Neutrophils # 5.3 Lymphocytes # 1.2 Monocytes # 0.7 Eosinophils # 0.3 Basophils # 0.0 Nucleated Red Blood Cells # 0.0 Prothrombin Time 22.2 H Prothrombin Time Ratio 1.7 INR International Normalized Ratio 1.93 Activated Partial Thromboplast Time 32.9 Sodium Level 142 Potassium Level 4.1 Chloride Level 109 Carbon Dioxide Level 27 Anion Gap 10 Blood Urea Nitrogen 25 H Creatinine 0.88 Glucose Level 102 Calcium Level 9.0 Phosphorus Level 2.8 Magnesium Level 2.1 Test 05/13/17 12:01 Bedside Glucose 114 Medications Medications Current Medications Al Hydrox/Mg Hydrox/Simethicone (Mag-Al Plus) 30 ml Q4H PRN PO GASTROINTESTINAL UPSET; Start 05/04/17 at 14:30 Ondansetron HCl (Zofran Inj) 4 mg Q4H PRN IV NAUSEA AND/OR VOMITING; Start at 14:30 Atorvastatin Calcium (Lipitor) 80 mg QHS PO Last administered on 05/12/17 20: 26; Admin Dose 80 MG; Start 05/04/17 at 21:00 Clopidogrel Bisulfate (plaVIX) 75 mg DAILY PO Last administered on 05/13/17 08:03; Admin Dose 75 MG; Start 05/05/17 at 09:00 Gabapentin (Neurontin) 300 mg BID PO Last administered on 05/13/17 08:03; Admin Dose 300 MG; Start 05/04/17 at 21:00 Isosorbide Mononitrate (Imdur) 30 mg DAILY PO Last administered on 05/13/17 08:03; Admin Dose 30 MG; Start 05/05/17 at 09:00 Fish Oil (Fish Oil) 2,000 mg BID PO Last administered on 05/13/17 08:03; Admin Dose 2,000 MG; Start 05/04/17 at 21:00 Nitroglycerin (Nitroglycerin (Sl Tab) 0.4 Mg) 1 tab Q5M PRN SL CHEST PAIN; Start 05/04/17 at 15:30 Docusate Sodium (Colace) 100 mg Q12H PRN PO CONSTIPATION; Start 05/04/17 at 15 :30 Magnesium Hydroxide (Milk Of Mag) 30 ml DAILY PRN PO CONSTIPATION; Start 05/04 at 15:30 Lisinopril (Zestril) 5 mg DAILY PO Last administered on 05/13/17 08:04; Admin Dose 5 MG; Start 05/09/17 at 09:00 Hydromorphone HCl (Dilaudid) 0.2 mg Q15M PRN IV PAIN LEVEL 1-5; Start at 15:00 Hydromorphone HCl (Dilaudid) 0.4 mg Q15M PRN IV PAIN LEVEL 6-10 Last administered on 05/11/17 21:43; Admin Dose 0.4 MG; Start 05/09/17 at 15:00 Morphine Sulfate (morphine) 2 mg Q2 PRN IV PAIN LEVEL 1-5 Last administered on 05/10/17 07:09; Admin Dose 2 MG; Start 05/09/17 at 15:00 Morphine Sulfate (morphine) 4 mg Q2 PRN IV PAIN LEVEL 6-10; Start 05/09/17 at 15:00 Midazolam HCl (Versed) 1 mg Q2H PRN IV AGITATION; Start 05/09/17 at 15:00 Acetaminophen (Tylenol Tab) 650 mg Q3H PRN PO ELEVATED TEMPERATURE; Start at 15:00 Acetaminophen (Tylenol Supp) 650 mg Q3H PRN [place] ELEVATED TEMPERATURE Last administered on 05/09/17 18:46; Admin Dose 650 MG; Start 05/09/17 at 15:00 Diagnostic Test (Pha) (Accu-Chek) 1 ea 02 XX ; Start 05/12/17 at 02:00 Miscellaneous Information 1 ea NOTE XX ; Start 05/11/17 at 13:00 Glucose (Glutose) 15 gm Q15M PRN PO DECREASED GLUCOSE; Start 05/11/17 at 13:00 Glucose (Glutose) 22.5 gm Q15M PRN PO DECREASED GLUCOSE; Start 05/11/17 at 13: 00 Dextrose (D50w Syringe) 25 ml Q15M PRN IV DECREASED GLUCOSE; Start 05/11/17 at 13:00 Dextrose (D50w Syringe) 50 ml Q15M PRN IV DECREASED GLUCOSE; Start 05/11/17 at 13:00 Glucagon (Glucagen) 1 mg Q15M PRN IM DECREASED GLUCOSE; Start 05/11/17 at 13: 00 Glucose (Glutose) 15 gm Q15M PRN BUCCAL DECREASED GLUCOSE; Start 05/11/17 at 13:00 Famotidine (Pepcid) 20 mg BID@08,20 PO Last administered on 05/13/17 08:03; Admin Dose 20 MG; Start 05/12/17 at 08:00 Atenolol (Tenormin) 25 mg BID PO Last administered on 05/13/17 08:03; Admin Dose 25 MG; Start 05/12/17 at 21:00 Influenza Virus Vaccine (Fluzone) 0.5 ml ONCE ONCE IM* ; Start 05/13/17 at 21: 00; Stop 05/13/17 at 21:01 Zolpidem Tartrate (Ambien) 10 mg HS PRN PO INSOMNIA Last administered on 22:30; Admin Dose 10 MG; Start 05/12/17 at 22:30 Bisacodyl (Dulcolax) 10 mg DAILY PRN PO CONSTIPATION Last administered on 05/13 12:25; Admin Dose 10 MG; Start 05/13/17 at 12:00 DAYANARA SHABAZZ May 13, 2017 14:21
[2017-05-13] MEDS ORDERED: DIGOXIN 500 MCG INJ IV ONE (14:30)
--- NOTE | 2017-05-13 19:13 | PN ---
Date/Time of Note Date/Time of Note DATE: 05/13/17 TIME: 19:12 Assessment/Plan VTE Prophylaxis VTE Prophylaxis Intervention: other Lines/Catheters IV [facility] Type (from [facility]): Central line still needed: No Urinary Cath still in place: No Assessment/Plan Chief Complaint/Hosp Course IMPRESSION: 1. Coronary artery disease. 2. Coagulopathy. RECOMMENDATIONS: We will proceed with coronary artery bypass grafting after recommendations from hematology/oncology. Discussed with the patient the risks , benefits, complications, alternative therapies explained to the patient and the family. All questions answered. SP CABG Ambulation pulm toilet CT DCed DC planning discussed with the family Problems: Exam/Review of Systems Vital Signs Vitals Vital Signs Date Time Temp Pulse Resp B/P Pulse Ox O2 Delivery O2 Flow Rate FiO2 05/13/17 17:04 2.0 32 05/13/17 16:37 99 05/13/17 11:38 98.5 19 90/57 93 05/12/17 20:15 Nasal Cannula Intake and Output 05/12/17 05/12/17 05/13/17 15:00 23:00 07:00 Intake Total 450 ml 240 ml Output Total 145 ml 20 ml 300 ml Balance 305 ml -20 ml -60 ml Exam ENMT: nl external ears & nose, nl lips & teeth, nl nasal mucosa & septum Neck: non-tender, supple Respiratory: clear to auscultation, normal air movement Results Result Diagram: 05/13/1725 05/13/1725 Results 24 hrs Laboratory Tests Test 05/12/17 20:11 05/13/17 07:25 05/13/17 07:47 05/13/17 12:01 Bedside Glucose 158 118 114 White Blood Count 7.5 Red Blood Count 3.11 L Hemoglobin 8.6 L Hematocrit 26.9 L Mean Corpuscular Volume 86.5 Mean Corpuscular Hemoglobin 27.7 L Mean Corpuscular Hemoglobin Concent 32.0 Red Cell Distribution Width 13.1 Platelet Count 244 # Mean Platelet Volume 11.4 H Neutrophils % 69.6 Lymphocytes % 16.2 Monocytes % 8.8 Eosinophils % 4.1 Basophils % 0.5 Nucleated Red Blood Cells % 0.0 Neutrophils # 5.3 Lymphocytes # 1.2 Monocytes # 0.7 Eosinophils # 0.3 Basophils # 0.0 Nucleated Red Blood Cells # 0.0 Prothrombin Time 22.2 H Prothrombin Time Ratio 1.7 INR International Normalized Ratio 1.93 Activated Partial Thromboplast Time 32.9 Sodium Level 142 Potassium Level 4.1 Chloride Level 109 Carbon Dioxide Level 27 Anion Gap 10 Blood Urea Nitrogen 25 H Creatinine 0.88 Glucose Level 102 Calcium Level 9.0 Phosphorus Level 2.8 Magnesium Level 2.1 Test 05/13/17 17:28 Bedside Glucose 117 Medications Medications Current Medications Al Hydrox/Mg Hydrox/Simethicone (Mag-Al Plus) 30 ml Q4H PRN PO GASTROINTESTINAL UPSET; Start 05/04/17 at 14:30 Ondansetron HCl (Zofran Inj) 4 mg Q4H PRN IV NAUSEA AND/OR VOMITING; Start at 14:30 Atorvastatin Calcium (Lipitor) 80 mg QHS PO Last administered on 05/12/17 20: 26; Admin Dose 80 MG; Start 05/04/17 at 21:00 Clopidogrel Bisulfate (plaVIX) 75 mg DAILY PO Last administered on 05/13/17 08:03; Admin Dose 75 MG; Start 05/05/17 at 09:00 Gabapentin (Neurontin) 300 mg BID PO Last administered on 05/13/17 08:03; Admin Dose 300 MG; Start 05/04/17 at 21:00 Isosorbide Mononitrate (Imdur) 30 mg DAILY PO Last administered on 05/13/17 08:03; Admin Dose 30 MG; Start 05/05/17 at 09:00 Fish Oil (Fish Oil) 2,000 mg BID PO Last administered on 05/13/17 08:03; Admin Dose 2,000 MG; Start 05/04/17 at 21:00 Nitroglycerin (Nitroglycerin (Sl Tab) 0.4 Mg) 1 tab Q5M PRN SL CHEST PAIN; Start 05/04/17 at 15:30 Docusate Sodium (Colace) 100 mg Q12H PRN PO CONSTIPATION; Start 05/04/17 at 15 :30 Magnesium Hydroxide (Milk Of Mag) 30 ml DAILY PRN PO CONSTIPATION; Start 05/04 at 15:30 Lisinopril (Zestril) 5 mg DAILY PO Last administered on 05/13/17 08:04; Admin Dose 5 MG; Start 05/09/17 at 09:00 Hydromorphone HCl (Dilaudid) 0.2 mg Q15M PRN IV PAIN LEVEL 1-5; Start at 15:00 Hydromorphone HCl (Dilaudid) 0.4 mg Q15M PRN IV PAIN LEVEL 6-10 Last administered on 05/11/17 21:43; Admin Dose 0.4 MG; Start 05/09/17 at 15:00 Morphine Sulfate (morphine) 2 mg Q2 PRN IV PAIN LEVEL 1-5 Last administered on 05/10/17 07:09; Admin Dose 2 MG; Start 05/09/17 at 15:00 Morphine Sulfate (morphine) 4 mg Q2 PRN IV PAIN LEVEL 6-10; Start 05/09/17 at 15:00 Midazolam HCl (Versed) 1 mg Q2H PRN IV AGITATION; Start 05/09/17 at 15:00 Acetaminophen (Tylenol Tab) 650 mg Q3H PRN PO ELEVATED TEMPERATURE; Start at 15:00 Acetaminophen (Tylenol Supp) 650 mg Q3H PRN ME ELEVATED TEMPERATURE Last administered on 05/09/17 18:46; Admin Dose 650 MG; Start 05/09/17 at 15:00 Diagnostic Test (Pha) (Accu-Chek) 1 ea 02 XX ; Start 05/12/17 at 02:00 Miscellaneous Information 1 ea NOTE XX ; Start 05/11/17 at 13:00 Glucose (Glutose) 15 gm Q15M PRN PO DECREASED GLUCOSE; Start 05/11/17 at 13:00 Glucose (Glutose) 22.5 gm Q15M PRN PO DECREASED GLUCOSE; Start 05/11/17 at 13: 00 Dextrose (D50w Syringe) 25 ml Q15M PRN IV DECREASED GLUCOSE; Start 05/11/17 at 13:00 Dextrose (D50w Syringe) 50 ml Q15M PRN IV DECREASED GLUCOSE; Start 05/11/17 at 13:00 Glucagon (Glucagen) 1 mg Q15M PRN IM DECREASED GLUCOSE; Start 05/11/17 at 13: 00 Glucose (Glutose) 15 gm Q15M PRN BUCCAL DECREASED GLUCOSE; Start 05/11/17 at 13:00 Famotidine (Pepcid) 20 mg BID@08,20 PO Last administered on 05/13/17 08:03; Admin Dose 20 MG; Start 05/12/17 at 08:00 Atenolol (Tenormin) 25 mg BID PO Last administered on 05/13/17 08:03; Admin Dose 25 MG; Start 05/12/17 at 21:00 Influenza Virus Vaccine (Fluzone) 0.5 ml ONCE ONCE IM* ; Start 05/13/17 at 21: 00; Stop 05/13/17 at 21:01 Zolpidem Tartrate (Ambien) 10 mg HS PRN PO INSOMNIA Last administered on 22:30; Admin Dose 10 MG; Start 05/12/17 at 22:30 Bisacodyl (Dulcolax) 10 mg DAILY PRN PO CONSTIPATION Last administered on 05/13 12:25; Admin Dose 10 MG; Start 05/13/17 at 12:00 MARYAM TORRE MD May 13, 2017 19:13
[2017-05-13] MEDS: ZOLPIDEM 5 MG TAB PO PRN (20:55)
[2017-05-13] MEDS: ATORVASTATIN 80 MG TAB PO SCH (20:55)
[2017-05-13] MEDS: ACETAMINOPHEN 325 MG TAB PO PRN (20:56)
[2017-05-13] MEDS ORDERED: INFLUENZA VIRUS VACCINE 0.5 ML SYG IM* ONE (21:00)
[2017-05-14] VITALS (12 sets, daily range): BP systolic 92–133; BP diastolic 62–82; PULSE 92–102; RESP 17–22
[2017-05-14] MEDS: ACCU-CHEK XX SCH (01:14)
[2017-05-14] MEDS: LEVOTHYROXINE 100 MCG TAB PO SCH (06:07)
[2017-05-14 07:10] LABS: BASOPHILS % 0.5 % (0.0-2.0); EOSINOPHILS # 0.4 10^3/ul (0.0-0.5); EOSINOPHILS % 4.4 % (0.0-7.0); HEMATOCRIT 28.3 % (42.0-52.0); HEMOGLOBIN 9.3 g/dl (14.0-18.0); LYMPHOCYTES # 1.4 10^3/ul (0.8-2.9); LYMPHOCYTES % 15.6 % (15.0-51.0); MEAN CORPUSCULAR HEMOGLOBIN 28.5 pg (29.0-33.0); MEAN CORPUSCULAR HGB CONC 32.9 g/dl (32.0-37.0); MEAN CORPUSCULAR VOLUME 86.8 fl (82.0-101.0); MONOCYTE # 0.9 10^3/ul (0.3-0.9); MONOCYTES % 9.6 % (0.0-11.0); NEUTROPHIL # 6.1 10^3/ul (1.6-7.5); NEUTROPHILS % 68.9 % (39.0-77.0); PLATELET COUNT 286 10^3/UL (140-415); RED BLOOD COUNT 3.26 10^6/ul (4.70-6.10); RED CELL DISTRIBUTION WIDTH 12.9 % (11.5-14.5); WHITE BLOOD COUNT 8.9 10^3/ul (4.8-10.8)
[2017-05-14 07:20] LABS: INR 1.87; PARTIAL THROMBOPLASTIN TIME 32.3 Sec (25.0-35.0); PROTIME 21.7 Sec (12.2-14.2); PT RATIO 1.7
[2017-05-14 07:33] LABS: CREATININE 0.9 mg/dl (0.61-1.24); PHOSPHORUS 3.4 mg/dl (2.5-4.9); POTASSIUM 4.1 mmol/L (3.5-5.1)
[2017-05-14] MEDS: INSULIN ASPART [NOVOLOG] 3 ML PEN SC SCH ×4 (07:55→20:35)
[2017-05-14] MEDS: FAMOTIDINE 20 MG TAB PO SCH ×2 (07:59→20:35)
[2017-05-14] MEDS: FISH OIL 1,000 MG CAP PO SCH ×2 (09:34→20:35)
[2017-05-14] MEDS: CLOPIDOGREL 75 MG TAB PO SCH (09:34)
[2017-05-14] MEDS: ISOSORBIDE MONONITRATE(SR)30 MG TAB PO SCH (09:35)
[2017-05-14] MEDS: GABAPENTIN 300 MG CAP PO SCH ×2 (09:35→20:35)
[2017-05-14] MEDS: LISINOPRIL 5 MG TAB PO SCH (09:35)
[2017-05-14] MEDS: ATENOLOL 25 MG TAB PO SCH ×2 (09:36→20:36)
--- NOTE | 2017-05-14 12:51 | PN ---
Date/Time of Note Date/Time of Note DATE: 05/14/17 TIME: 12:49 Assessment/Plan VTE Prophylaxis VTE Prophylaxis Intervention: ambulation Lines/Catheters IV [facility] Type (from [facility] Urinary Cath still in place: No Assessment/Plan Chief Complaint/Hosp Course Assessment/Plan #. 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 use parvin 7 in case of bleed s/p CABG. - PTT Mixing study showed correction - No av bleeding appreciated at this time and will continue to monitor #shortness of breath -pleural effusions -pulmonology consulted -repeat CXR ordered -BNP ordered, ? lasix per cards/pulm #pleural effusions -likely 2/ CABG #. CAD s/p stenting in 2005 - 4x CABG done 05/09/17 -CT surgery recs appreciated -medications and acute surgical issues to be managed by CT surgery. -chest tubes still in, possible DC today -cardiology to manage meds, digoxin and BB #. Hypothyroidism - TSH within nl limits - continue home dose of levothyroxine for now #. Disposition -pulm consult pending -attempt to correct o2 demand before DC -DISPO when ready and stable. Problems: Subjective 24 Hr Interval Summary Free Text/Dictation no acute issues. still on NC Exam/Review of Systems Vital Signs Vitals Vital Signs Date Time Temp Pulse Resp B/P Pulse Ox O2 Delivery O2 Flow Rate FiO2 05/14/17 12:27 93 05/14/17 11:35 98.4 20 92/62 97 05/13/17 20:26 3.0 05/13/17 17:04 32 05/12/17 20:15 Nasal Cannula Intake and Output 05/13/17 05/13/17 05/14/17 15:00 23:00 07:00 Intake Total 500 ml 300 ml Balance 500 ml 300 ml Exam Constitutional: alert, oriented, no acute distress Head: atraumatic, normocephalic Eyes: EOMI, PERRL, nl sclera Neck: non-tender, supple Respiratory: coarse to auscultation bilaterally. Cardiovascular: tachycardic, no obvious murmurs, midline incision. CDI. Chest tubes in Gastrointestinal: bowel sounds, non distended Musculoskeletal: nl extremities to inspection Extremities: normal pulses, No clubbing, No cyanosis, Neurological: [employer] II-XII intact, nl mental status, nl speech Skin: nl turgor Results Result Diagram: 05/14/17 0600 05/14/17 0600 Results 24 hrs Laboratory Tests Test 05/13/17 17:28 05/13/17 21:00 05/14/17 06:00 05/14/17 07:56 Bedside Glucose 117 111 111 White Blood Count 8.9 Red Blood Count 3.26 L Hemoglobin 9.3 L Hematocrit 28.3 L Mean Corpuscular Volume 86.8 Mean Corpuscular Hemoglobin 28.5 L Mean Corpuscular Hemoglobin Concent 32.9 Red Cell Distribution Width 12.9 Platelet Count 286 Mean Platelet Volume 11.0 H Neutrophils % 68.9 Lymphocytes % 15.6 Monocytes % 9.6 Eosinophils % 4.4 Basophils % 0.5 Nucleated Red Blood Cells % 0.0 Neutrophils # 6.1 Lymphocytes # 1.4 Monocytes # 0.9 Eosinophils # 0.4 Basophils # 0.0 Nucleated Red Blood Cells # 0.0 Prothrombin Time 21.7 H Prothrombin Time Ratio 1.7 INR International Normalized Ratio 1.87 Activated Partial Thromboplast Time 32.3 Sodium Level 143 Potassium Level 4.1 Chloride Level 107 Carbon Dioxide Level 26 Anion Gap 14 Blood Urea Nitrogen 27 H Creatinine 0.90 Glucose Level 96 Calcium Level 9.0 Phosphorus Level 3.4 Magnesium Level 2.0 Test 05/14/17 12:18 Bedside Glucose 110 Medications Medications Current Medications Al Hydrox/Mg Hydrox/Simethicone (Mag-Al Plus) 30 ml Q4H PRN PO GASTROINTESTINAL UPSET; Start 05/04/17 at 14:30 Ondansetron HCl (Zofran Inj) 4 mg Q4H PRN IV NAUSEA AND/OR VOMITING; Start at 14:30 Atorvastatin Calcium (Lipitor) 80 mg QHS PO Last administered on 05/13/17 20: 55; Admin Dose 80 MG; Start 05/04/17 at 21:00 Clopidogrel Bisulfate (plaVIX) 75 mg DAILY PO Last administered on 05/14/17 09:34; Admin Dose 75 MG; Start 05/05/17 at 09:00 Gabapentin (Neurontin) 300 mg BID PO Last administered on 05/14/17 09:35; Admin Dose 300 MG; Start 05/04/17 at 21:00 Isosorbide Mononitrate (Imdur) 30 mg DAILY PO Last administered on 05/14/17 09:35; Admin Dose 30 MG; Start 05/05/17 at 09:00 Fish Oil (Fish Oil) 2,000 mg BID PO Last administered on 05/14/17 09:34; Admin Dose 2,000 MG; Start 05/04/17 at 21:00 Nitroglycerin (Nitroglycerin (Sl Tab) 0.4 Mg) 1 tab Q5M PRN SL CHEST PAIN; Start 05/04/17 at 15:30 Docusate Sodium (Colace) 100 mg Q12H PRN PO CONSTIPATION; Start 05/04/17 at 15 :30 Magnesium Hydroxide (Milk Of Mag) 30 ml DAILY PRN PO CONSTIPATION; Start 05/04 at 15:30 Lisinopril (Zestril) 5 mg DAILY PO Last administered on 05/14/17 09:35; Admin Dose 5 MG; Start 05/09/17 at 09:00 Hydromorphone HCl (Dilaudid) 0.2 mg Q15M PRN IV PAIN LEVEL 1-5; Start at 15:00 Hydromorphone HCl (Dilaudid) 0.4 mg Q15M PRN IV PAIN LEVEL 6-10 Last administered on 05/11/17 21:43; Admin Dose 0.4 MG; Start 05/09/17 at 15:00 Morphine Sulfate (morphine) 2 mg Q2 PRN IV PAIN LEVEL 1-5 Last administered on 05/10/17 07:09; Admin Dose 2 MG; Start 05/09/17 at 15:00 Morphine Sulfate (morphine) 4 mg Q2 PRN IV PAIN LEVEL 6-10; Start 05/09/17 at 15:00 Midazolam HCl (Versed) 1 mg Q2H PRN IV AGITATION; Start 05/09/17 at 15:00 Acetaminophen (Tylenol Tab) 650 mg Q3H PRN PO ELEVATED TEMPERATURE Last administered on 05/13/17 20:56; Admin Dose 650 MG; Start 05/09/17 at 15:00 Acetaminophen (Tylenol Supp) 650 mg Q3H PRN ME ELEVATED TEMPERATURE Last administered on 05/09/17 18:46; Admin Dose 650 MG; Start 05/09/17 at 15:00 Diagnostic Test (Pha) (Accu-Chek) 1 ea 02 XX ; Start 05/12/17 at 02:00 Miscellaneous Information 1 ea NOTE XX ; Start 05/11/17 at 13:00 Glucose (Glutose) 15 gm Q15M PRN PO DECREASED GLUCOSE; Start 05/11/17 at 13:00 Glucose (Glutose) 22.5 gm Q15M PRN PO DECREASED GLUCOSE; Start 05/11/17 at 13: 00 Dextrose (D50w Syringe) 25 ml Q15M PRN IV DECREASED GLUCOSE; Start 05/11/17 at 13:00 Dextrose (D50w Syringe) 50 ml Q15M PRN IV DECREASED GLUCOSE; Start 05/11/17 at 13:00 Glucagon (Glucagen) 1 mg Q15M PRN IM DECREASED GLUCOSE; Start 05/11/17 at 13: 00 Glucose (Glutose) 15 gm Q15M PRN BUCCAL DECREASED GLUCOSE; Start 05/11/17 at 13:00 Famotidine (Pepcid) 20 mg BID@08,20 PO Last administered on 05/14/17 07:59; Admin Dose 20 MG; Start 05/12/17 at 08:00 Atenolol (Tenormin) 25 mg BID PO Last administered on 05/14/17 09:36; Admin Dose 25 MG; Start 05/12/17 at 21:00 Zolpidem Tartrate (Ambien) 10 mg HS PRN PO INSOMNIA Last administered on 20:55; Admin Dose 10 MG; Start 05/12/17 at 22:30 Bisacodyl (Dulcolax) 10 mg DAILY PRN PO CONSTIPATION Last administered on 05/13 12:25; Admin Dose 10 MG; Start 05/13/17 at 12:00 JESUSITA LACEY May 14, 2017 12:51
[2017-05-14] MEDS: ACETAMINOPHEN 325 MG TAB PO PRN (13:40)
--- NOTE | 2017-05-14 14:29 | CONS ---
Date/Time of Note Date/Time of Note DATE: 05/14/17 TIME: 14:25 Assessment/Plan Assessment/Plan Additional Assessment/Plan CAD s/p CABG Coagulopathy Hypertension Hyperlipidemia Diabetes Hypothyroidism hemodynamically stable Continue Imdur Continue Atenolol and Lisinopril Continue ASA and Plavix Continue Insulin Continue Lipitor continue Levothyroxine Consultation Date/Type/Reason Admit Date/Time May 04, 2017 at 15:44 Eyes: no complaints ENT: no complaints Respiratory: No cough, No shortness of breath, No sputum, No wheezing Cardiovascular: No chest pain, No edema, No lightheadedness, No orthopenea, No palpitations Gastrointestinal: No blood, No constipation, No diarrhea, No nausea, No passing stool Genitourinary: no complaints Musculoskeletal: no complaints Skin: no complaints Neurologic: no complaints Lymphatic: no complaints Psychological: no complaints Immunologic: no complaints Past Medical History Medical History: coronary artery disease, hypothyroid Past Surgical History Past Surgical Hx: no surgical history Social History Alcohol Use: none Smoking Status: Former smoker Drug Use: none Exam/Review of Systems Vital Signs Vitals Vital Signs Date Time Temp Pulse Resp B/P Pulse Ox O2 Delivery O2 Flow Rate FiO2 05/14/17 12:27 93 05/14/17 11:35 98.4 20 92/62 97 05/13/17 20:26 3.0 05/13/17 17:04 32 05/12/17 20:15 Nasal Cannula Intake and Output 05/13/17 05/13/17 05/14/17 15:00 23:00 07:00 Intake Total 500 ml 300 ml Balance 500 ml 300 ml Exam Constitutional: alert, oriented Head: atraumatic, normocephalic Respiratory: clear to auscultation Cardiovascular: regular rate and rhythm Gastrointestinal: nl liver, spleen, non-tender, soft Extremities: normal pulses Results Result Diagram: 05/14/17 0600 05/14/17 0600 Results 24 hrs Laboratory Tests Test 05/13/17 17:28 05/13/17 21:00 05/14/17 06:00 05/14/17 07:56 Bedside Glucose 117 111 111 White Blood Count 8.9 Red Blood Count 3.26 L Hemoglobin 9.3 L Hematocrit 28.3 L Mean Corpuscular Volume 86.8 Mean Corpuscular Hemoglobin 28.5 L Mean Corpuscular Hemoglobin Concent 32.9 Red Cell Distribution Width 12.9 Platelet Count 286 Mean Platelet Volume 11.0 H Neutrophils % 68.9 Lymphocytes % 15.6 Monocytes % 9.6 Eosinophils % 4.4 Basophils % 0.5 Nucleated Red Blood Cells % 0.0 Neutrophils # 6.1 Lymphocytes # 1.4 Monocytes # 0.9 Eosinophils # 0.4 Basophils # 0.0 Nucleated Red Blood Cells # 0.0 Prothrombin Time 21.7 H Prothrombin Time Ratio 1.7 INR International Normalized Ratio 1.87 Activated Partial Thromboplast Time 32.3 Sodium Level 143 Potassium Level 4.1 Chloride Level 107 Carbon Dioxide Level 26 Anion Gap 14 Blood Urea Nitrogen 27 H Creatinine 0.90 Glucose Level 96 Calcium Level 9.0 Phosphorus Level 3.4 Magnesium Level 2.0 Test 05/14/17 12:18 Bedside Glucose 110 Medications Medications Current Medications Al Hydrox/Mg Hydrox/Simethicone (Mag-Al Plus) 30 ml Q4H PRN PO GASTROINTESTINAL UPSET; Start 05/04/17 at 14:30 Ondansetron HCl (Zofran Inj) 4 mg Q4H PRN IV NAUSEA AND/OR VOMITING; Start at 14:30 Atorvastatin Calcium (Lipitor) 80 mg QHS PO Last administered on 05/13/17 20: 55; Admin Dose 80 MG; Start 05/04/17 at 21:00 Clopidogrel Bisulfate (plaVIX) 75 mg DAILY PO Last administered on 05/14/17 09:34; Admin Dose 75 MG; Start 05/05/17 at 09:00 Gabapentin (Neurontin) 300 mg BID PO Last administered on 05/14/17 09:35; Admin Dose 300 MG; Start 05/04/17 at 21:00 Isosorbide Mononitrate (Imdur) 30 mg DAILY PO Last administered on 05/14/17 09:35; Admin Dose 30 MG; Start 05/05/17 at 09:00 Fish Oil (Fish Oil) 2,000 mg BID PO Last administered on 05/14/17 09:34; Admin Dose 2,000 MG; Start 05/04/17 at 21:00 Nitroglycerin (Nitroglycerin (Sl Tab) 0.4 Mg) 1 tab Q5M PRN SL CHEST PAIN; Start 05/04/17 at 15:30 Docusate Sodium (Colace) 100 mg Q12H PRN PO CONSTIPATION; Start 05/04/17 at 15 :30 Magnesium Hydroxide (Milk Of Mag) 30 ml DAILY PRN PO CONSTIPATION; Start 05/04 at 15:30 Lisinopril (Zestril) 5 mg DAILY PO Last administered on 05/14/17 09:35; Admin Dose 5 MG; Start 05/09/17 at 09:00 Hydromorphone HCl (Dilaudid) 0.2 mg Q15M PRN IV PAIN LEVEL 1-5; Start at 15:00 Hydromorphone HCl (Dilaudid) 0.4 mg Q15M PRN IV PAIN LEVEL 6-10 Last administered on 05/11/17 21:43; Admin Dose 0.4 MG; Start 05/09/17 at 15:00 Morphine Sulfate (morphine) 2 mg Q2 PRN IV PAIN LEVEL 1-5 Last administered on 05/10/17 07:09; Admin Dose 2 MG; Start 05/09/17 at 15:00 Morphine Sulfate (morphine) 4 mg Q2 PRN IV PAIN LEVEL 6-10; Start 05/09/17 at 15:00 Midazolam HCl (Versed) 1 mg Q2H PRN IV AGITATION; Start 05/09/17 at 15:00 Acetaminophen (Tylenol Tab) 650 mg Q3H PRN PO ELEVATED TEMPERATURE Last administered on 05/14/17 13:40; Admin Dose 650 MG; Start 05/09/17 at 15:00 Acetaminophen (Tylenol Supp) 650 mg Q3H PRN [place] ELEVATED TEMPERATURE Last administered on 05/09/17 18:46; Admin Dose 650 MG; Start 05/09/17 at 15:00 Diagnostic Test (Pha) (Accu-Chek) 1 ea 02 XX ; Start 05/12/17 at 02:00 Miscellaneous Information 1 ea NOTE XX ; Start 05/11/17 at 13:00 Glucose (Glutose) 15 gm Q15M PRN PO DECREASED GLUCOSE; Start 05/11/17 at 13:00 Glucose (Glutose) 22.5 gm Q15M PRN PO DECREASED GLUCOSE; Start 05/11/17 at 13: 00 Dextrose (D50w Syringe) 25 ml Q15M PRN IV DECREASED GLUCOSE; Start 05/11/17 at 13:00 Dextrose (D50w Syringe) 50 ml Q15M PRN IV DECREASED GLUCOSE; Start 05/11/17 at 13:00 Glucagon (Glucagen) 1 mg Q15M PRN IM DECREASED GLUCOSE; Start 05/11/17 at 13: 00 Glucose (Glutose) 15 gm Q15M PRN BUCCAL DECREASED GLUCOSE; Start 05/11/17 at 13:00 Famotidine (Pepcid) 20 mg BID@08,20 PO Last administered on 05/14/17 07:59; Admin Dose 20 MG; Start 05/12/17 at 08:00 Atenolol (Tenormin) 25 mg BID PO Last administered on 05/14/17 09:36; Admin Dose 25 MG; Start 05/12/17 at 21:00 Zolpidem Tartrate (Ambien) 10 mg HS PRN PO INSOMNIA Last administered on 20:55; Admin Dose 10 MG; Start 05/12/17 at 22:30 Bisacodyl (Dulcolax) 10 mg DAILY PRN PO CONSTIPATION Last administered on 05/13 12:25; Admin Dose 10 MG; Start 05/13/17 at 12:00 JOSE RINCON M.D. May 14, 2017 14:29
--- NOTE | 2017-05-14 15:39 | RADRPT ---
PROCEDURE: XR Chest. CLINICAL INDICATION: Hypoxia. TECHNIQUE: Single frontal view. COMPARISON: 05/12/2017. FINDINGS: The right internal jugular vein sheath catheter has been removed. There is mild left basilar atelect asis. The lungs are otherwise clear. The heart is mildly enlarged. There is calcification in the aorta consistent with atherosclerosis. T here are sternal wires. The mediastinal drains have been removed. There is no pleural effusion. There is no pneumothorax. IMPRESSION: 1. Right IJ catheter and mediastinal drains removed. 2. Improved appearance of the lungs. 3. Left basilar atelectasis. 4. Cardiomegaly and atherosclerosis. 5. Previous median sternotomy. RPTAT: QQ .Nhan Wild MD, MD Date Time Electronically viewed and signed by .Nhan Wild MD, MD on 05/14/2017 15:38 .R/
[2017-05-14] MEDS: ATORVASTATIN 80 MG TAB PO SCH (20:36)
[2017-05-14] MEDS: ZOLPIDEM 5 MG TAB PO PRN (22:21)
[2017-05-15] VITALS (13 sets, daily range): BP systolic 102–119; BP diastolic 58–72; PULSE 90–101; RESP 17–24
[2017-05-15] MEDS: ACCU-CHEK XX SCH (02:00)
[2017-05-15 06:42] LABS: BASOPHILS % 0.3 % (0.0-2.0); EOSINOPHILS # 0.4 10^3/ul (0.0-0.5); EOSINOPHILS % 4.3 % (0.0-7.0); HEMATOCRIT 28.3 % (42.0-52.0); HEMOGLOBIN 9.2 g/dl (14.0-18.0); LYMPHOCYTES # 1.6 10^3/ul (0.8-2.9); LYMPHOCYTES % 16.1 % (15.0-51.0); MEAN CORPUSCULAR HGB CONC 32.5 g/dl (32.0-37.0); NEUTROPHIL # 6.7 10^3/ul (1.6-7.5); NEUTROPHILS % 67.6 % (39.0-77.0); PLATELET COUNT 312 10^3/UL (140-415); RED BLOOD COUNT 3.29 10^6/ul (4.70-6.10); WHITE BLOOD COUNT 9.9 10^3/ul (4.8-10.8)
[2017-05-15 07:24] LABS: CALCIUM 8.8 mg/dl (8.4-10.2); CREATININE 0.97 mg/dl (0.61-1.24); MAGNESIUM 1.9 mg/dl (1.7-2.5); PHOSPHORUS 3.4 mg/dl (2.5-4.9); POTASSIUM 4.5 mmol/L (3.5-5.1)
[2017-05-15] MEDS: LEVOTHYROXINE 100 MCG TAB PO SCH (07:29)
[2017-05-15] MEDS: INSULIN ASPART [NOVOLOG] 3 ML PEN SC SCH ×2 (07:33→11:50)
[2017-05-15] MEDS: FAMOTIDINE 20 MG TAB PO SCH ×2 (08:12→20:55)
[2017-05-15] MEDS: FISH OIL 1,000 MG CAP PO SCH ×2 (09:32→20:55)
[2017-05-15] MEDS: GABAPENTIN 300 MG CAP PO SCH ×2 (09:33→20:55)
[2017-05-15] MEDS: CLOPIDOGREL 75 MG TAB PO SCH (09:33)
[2017-05-15] MEDS: ISOSORBIDE MONONITRATE(SR)30 MG TAB PO SCH (09:33)
[2017-05-15] MEDS: ATENOLOL 25 MG TAB PO SCH ×2 (09:34→20:56)
[2017-05-15] MEDS: LISINOPRIL 5 MG TAB PO SCH (09:34)
--- NOTE | 2017-05-15 13:25 | PN ---
Date/Time of Note Date/Time of Note DATE: 05/15/17 TIME: 13:24 Assessment/Plan VTE Prophylaxis VTE Prophylaxis Intervention: ambulation Lines/Catheters [facility] Urinary Cath still in place: No Assessment/Plan Chief Complaint/Hosp Course Assessment/Plan #. 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 use parvin 7 in case of bleed s/p CABG. - PTT Mixing study showed correction - No av bleeding appreciated at this time and will continue to monitor #shortness of breath -pleural effusions -pulmonology consulted -repeat CXR showed improvement -BNP ordered, elevated -patient doing better, less O2 demand, #pleural effusions -likely 2/2 CABG #. CAD s/p stenting in 2006 - 4x CABG done 05/09/17 -CT surgery recs appreciated -medications and acute surgical issues to be managed by CT surgery. -chest tubes still in, possible DC today -cardiology to manage meds, digoxin and BB #. Hypothyroidism - TSH within nl limits - continue home dose of levothyroxine for now #. Disposition -attempt to correct o2 demand before DC -DISPO when ready and stable. Problems: Subjective 24 Hr Interval Summary Free Text/Dictation breathing better Exam/Review of Systems Vital Signs Vitals Vital Signs Date Time Temp Pulse Resp B/P Pulse Ox O2 Delivery O2 Flow Rate FiO2 05/15/17 12:24 92 05/15/17 11:13 97.7 20 104/68 97 05/15/17 01:40 2.0 05/14/17 20:00 Nasal Cannula 05/13/17 17:04 32 Intake and Output 05/14/17 05/14/17 05/15/17 15:00 23:00 07:00 Intake Total 1000 ml 500 ml Balance 1000 ml 500 ml Exam Constitutional: alert, oriented, no acute distress Head: atraumatic, normocephalic Eyes: EOMI, PERRL, nl sclera Neck: non-tender, supple Respiratory: coarse to auscultation bilaterally. Cardiovascular: tachycardic, no obvious murmurs, midline incision. CDI. Gastrointestinal: bowel sounds, non distended Musculoskeletal: nl extremities to inspection Extremities: normal pulses, No clubbing, No cyanosis, Neurological: BALLISTICIAN II-XII intact, nl mental status, nl speech Skin: nl turgor Results Result Diagram: 05/15/17 0536 05/15/17 0536 Results 24 hrs Laboratory Tests Test 05/14/17 17:36 05/14/17 20:33 05/15/17 05:36 05/15/17 07:32 Bedside Glucose 113 113 115 White Blood Count 9.9 Red Blood Count 3.29 L Hemoglobin 9.2 L Hematocrit 28.3 L Mean Corpuscular Volume 86.0 Mean Corpuscular Hemoglobin 28.0 L Mean Corpuscular Hemoglobin Concent 32.5 Red Cell Distribution Width 13.0 Platelet Count 312 Mean Platelet Volume 11.0 H Neutrophils % 67.6 Lymphocytes % 16.1 Monocytes % 10.0 Eosinophils % 4.3 Basophils % 0.3 Nucleated Red Blood Cells % 0.0 Neutrophils # 6.7 Lymphocytes # 1.6 Monocytes # 1.0 H Eosinophils # 0.4 Basophils # 0.0 Nucleated Red Blood Cells # 0.0 Sodium Level 141 Potassium Level 4.5 Chloride Level 105 Carbon Dioxide Level 24 Anion Gap 17 H Blood Urea Nitrogen 28 H Creatinine 0.97 Glucose Level 92 Calcium Level 8.8 Phosphorus Level 3.4 Magnesium Level 1.9 B-Type Natriuretic Peptide 1700 H Test 05/15/17 11:59 Bedside Glucose 119 Medications Medications Current Medications Al Hydrox/Mg Hydrox/Simethicone (Mag-Al Plus) 30 ml Q4H PRN PO GASTROINTESTINAL UPSET; Start 05/04/17 at 14:30 Ondansetron HCl (Zofran Inj) 4 mg Q4H PRN IV NAUSEA AND/OR VOMITING; Start at 14:30 Atorvastatin Calcium (Lipitor) 80 mg QHS PO Last administered on 05/14/17 20: 36; Admin Dose 80 MG; Start 05/04/17 at 21:00 Clopidogrel Bisulfate (plaVIX) 75 mg DAILY PO Last administered on 05/15/17 09:33; Admin Dose 75 MG; Start 05/05/17 at 09:00 Gabapentin (Neurontin) 300 mg BID PO Last administered on 05/15/17 09:33; Admin Dose 300 MG; Start 05/04/17 at 21:00 Isosorbide Mononitrate (Imdur) 30 mg DAILY PO Last administered on 05/15/17 09:33; Admin Dose 30 MG; Start 05/05/17 at 09:00 Fish Oil (Fish Oil) 2,000 mg BID PO Last administered on 05/15/17 09:32; Admin Dose 2,000 MG; Start 05/04/17 at 21:00 Nitroglycerin (Nitroglycerin (Sl Tab) 0.4 Mg) 1 tab Q5M PRN SL CHEST PAIN; Start 05/04/17 at 15:30 Docusate Sodium (Colace) 100 mg Q12H PRN PO CONSTIPATION; Start 05/04/17 at 15 :30 Magnesium Hydroxide (Milk Of Mag) 30 ml DAILY PRN PO CONSTIPATION; Start 05/04 at 15:30 Lisinopril (Zestril) 5 mg DAILY PO Last administered on 05/15/17 09:34; Admin Dose 5 MG; Start 05/09/17 at 09:00 Hydromorphone HCl (Dilaudid) 0.2 mg Q15M PRN IV PAIN LEVEL 1-5; Start at 15:00 Hydromorphone HCl (Dilaudid) 0.4 mg Q15M PRN IV PAIN LEVEL 6-10 Last administered on 05/11/17 21:43; Admin Dose 0.4 MG; Start 05/09/17 at 15:00 Morphine Sulfate (morphine) 2 mg Q2 PRN IV PAIN LEVEL 1-5 Last administered on 05/10/17 07:09; Admin Dose 2 MG; Start 05/09/17 at 15:00 Morphine Sulfate (morphine) 4 mg Q2 PRN IV PAIN LEVEL 6-10; Start 05/09/17 at 15:00 Midazolam HCl (Versed) 1 mg Q2H PRN IV AGITATION; Start 05/09/17 at 15:00 Acetaminophen (Tylenol Tab) 650 mg Q3H PRN PO ELEVATED TEMPERATURE Last administered on 05/14/17 13:40; Admin Dose 650 MG; Start 05/09/17 at 15:00 Acetaminophen (Tylenol Supp) 650 mg Q3H PRN [place] ELEVATED TEMPERATURE Last administered on 05/09/17 18:46; Admin Dose 650 MG; Start 05/09/17 at 15:00 Miscellaneous Information 1 ea NOTE XX ; Start 05/11/17 at 13:00 Famotidine (Pepcid) 20 mg BID@08,20 PO Last administered on 05/15/17 08:12; Admin Dose 20 MG; Start 05/12/17 at 08:00 Atenolol (Tenormin) 25 mg BID PO Last administered on 05/15/17 09:34; Admin Dose 25 MG; Start 05/12/17 at 21:00 Zolpidem Tartrate (Ambien) 10 mg HS PRN PO INSOMNIA Last administered on 22:21; Admin Dose 10 MG; Start 05/12/17 at 22:30 Bisacodyl (Dulcolax) 10 mg DAILY PRN PO CONSTIPATION Last administered on 05/13 12:25; Admin Dose 10 MG; Start 05/13/17 at 12:00 JESUSITA LACEY May 15, 2017 13:25
[2017-05-15] MEDS: ATORVASTATIN 80 MG TAB PO SCH (20:55)
[2017-05-16] VITALS (10 sets, daily range): BP systolic 101–122; BP diastolic 59–70; PULSE 89–99; RESP 16–19
[2017-05-16] MEDS: LEVOTHYROXINE 100 MCG TAB PO SCH (07:05)
[2017-05-16] MEDS: FISH OIL 1,000 MG CAP PO SCH (08:36)
[2017-05-16] MEDS: FAMOTIDINE 20 MG TAB PO SCH (08:37)
[2017-05-16] MEDS: GABAPENTIN 300 MG CAP PO SCH (08:37)
[2017-05-16] MEDS: CLOPIDOGREL 75 MG TAB PO SCH (08:37)
[2017-05-16] MEDS: ISOSORBIDE MONONITRATE(SR)30 MG TAB PO SCH (08:37)
[2017-05-16] MEDS: LISINOPRIL 5 MG TAB PO SCH (08:38)
[2017-05-16] MEDS: ATENOLOL 25 MG TAB PO SCH (08:38)
--- NOTE | 2017-05-16 11:50 | CONS ---
Date/Time of Note Date/Time of Note DATE: 05/16/17 TIME: 11:47 Assessment/Plan Assessment/Plan Chief Complaint/Hosp Course IMP: 1.cad-mutivessel obstructive by [facility] 05/04. Now Post-op s/p 4 vessel cabg(VALDEZ- LAD, SVG-PDA/diag/OM) 2.UNstable angina-secondary to cad as above 3. Coagulopathy-factor V11 def?: 4.HTN 5.HL 6. Tachycardia-S Tach ongoing, improving on atenolol Recc: -Tele -serial ecg's -Continue oral nitrates/ACEI/B and follow BP/HR closely -Will continue plavix for now -additional dose of digoxin -Continue atenolol -ambulation and d/c planning Problems: Consultation Date/Type/Reason Admit Date/Time May 04, 2017 at 15:44 Initial Consult Date 05/04/2017 Type of Consultation: cardiology Reason for Consultation chest pain Referring Provider: DAYANARA SHABAZZ Exam/Review of Systems Vital Signs Vitals Vital Signs Date Time Temp Pulse Resp B/P Pulse Ox O2 Delivery O2 Flow Rate FiO2 05/16/17 07:57 98.4 94 18 122/70 95 05/15/17 08:00 Nasal Cannula 1.0 05/13/17 17:04 32 Intake and Output 05/15/17 05/15/17 05/16/17 15:00 23:00 07:00 Intake Total 650 ml 450 ml Balance 650 ml 450 ml Exam Review of Systems: CONSTITUTIONAL: No fevers, chills. PULMONARY: No sob CARDIOVASCULAR: No chest pain/palpitations GASTROINTESTINAL: No nausea/vomiting. GENITOURINARY: No hematuria/dysuria. MUSCULOSKELETAL: No myagias/arthalgias. PSYCHIATRIC: The patient denies depression. NEUROLOGIC: No weakness Constitutional: alert Psych: no complaints Head: normocephalic ENMT: mucosa pink and moist Neck: jvd (9 cm water), supple Respiratory: clear to auscultation Cardiovascular: other (median sternotomy c/d/i), regular rate and rhythm Gastrointestinal: non-tender, soft Musculoskeletal: muscle tone (normal) Extremities: other (No focal deficits) Results Result Diagram: 05/15/17 0536 05/15/17 0536 Results 24 hrs Laboratory Tests Test 05/15/17 11:59 05/15/17 20:54 05/16/17 08:08 05/16/17 09:02 Bedside Glucose 119 165 114 Lab Scanned Report REFERENCE LAB Medications Medications Current Medications Al Hydrox/Mg Hydrox/Simethicone (Mag-Al Plus) 30 ml Q4H PRN PO GASTROINTESTINAL UPSET; Start 05/04/17 at 14:30 Ondansetron HCl (Zofran Inj) 4 mg Q4H PRN IV NAUSEA AND/OR VOMITING; Start at 14:30 Atorvastatin Calcium (Lipitor) 80 mg QHS PO Last administered on 05/15/17 20: 55; Admin Dose 80 MG; Start 05/04/17 at 21:00 Clopidogrel Bisulfate (plaVIX) 75 mg DAILY PO Last administered on 05/16/17 08:37; Admin Dose 75 MG; Start 05/05/17 at 09:00 Gabapentin (Neurontin) 300 mg BID PO Last administered on 05/16/17 08:37; Admin Dose 300 MG; Start 05/04/17 at 21:00 Isosorbide Mononitrate (Imdur) 30 mg DAILY PO Last administered on 05/16/17 08:37; Admin Dose 30 MG; Start 05/05/17 at 09:00 Fish Oil (Fish Oil) 2,000 mg BID PO Last administered on 05/16/17 08:36; Admin Dose 2,000 MG; Start 05/04/17 at 21:00 Nitroglycerin (Nitroglycerin (Sl Tab) 0.4 Mg) 1 tab Q5M PRN SL CHEST PAIN; Start 05/04/17 at 15:30 Docusate Sodium (Colace) 100 mg Q12H PRN PO CONSTIPATION; Start 05/04/17 at 15 :30 Magnesium Hydroxide (Milk Of Mag) 30 ml DAILY PRN PO CONSTIPATION; Start 05/04 at 15:30 Lisinopril (Zestril) 5 mg DAILY PO Last administered on 05/16/17 08:38; Admin Dose 5 MG; Start 05/09/17 at 09:00 Hydromorphone HCl (Dilaudid) 0.2 mg Q15M PRN IV PAIN LEVEL 1-5; Start at 15:00 Hydromorphone HCl (Dilaudid) 0.4 mg Q15M PRN IV PAIN LEVEL 6-10 Last administered on 05/11/17 21:43; Admin Dose 0.4 MG; Start 05/09/17 at 15:00 Morphine Sulfate (morphine) 2 mg Q2 PRN IV PAIN LEVEL 1-5 Last administered on 05/10/17 07:09; Admin Dose 2 MG; Start 05/09/17 at 15:00 Morphine Sulfate (morphine) 4 mg Q2 PRN IV PAIN LEVEL 6-10; Start 05/09/17 at 15:00 Midazolam HCl (Versed) 1 mg Q2H PRN IV AGITATION; Start 05/09/17 at 15:00 Acetaminophen (Tylenol Tab) 650 mg Q3H PRN PO ELEVATED TEMPERATURE Last administered on 05/14/17 13:40; Admin Dose 650 MG; Start 05/09/17 at 15:00 Acetaminophen (Tylenol Supp) 650 mg Q3H PRN [place] ELEVATED TEMPERATURE Last administered on 05/09/17 18:46; Admin Dose 650 MG; Start 05/09/17 at 15:00 Miscellaneous Information 1 ea NOTE XX ; Start 05/11/17 at 13:00 Famotidine (Pepcid) 20 mg BID@08,20 PO Last administered on 05/16/17 08:37; Admin Dose 20 MG; Start 05/12/17 at 08:00 Atenolol (Tenormin) 25 mg BID PO Last administered on 05/16/17 08:38; Admin Dose 25 MG; Start 05/12/17 at 21:00 Zolpidem Tartrate (Ambien) 10 mg HS PRN PO INSOMNIA Last administered on 22:21; Admin Dose 10 MG; Start 05/12/17 at 22:30 Bisacodyl (Dulcolax) 10 mg DAILY PRN PO CONSTIPATION Last administered on 05/13 12:25; Admin Dose 10 MG; Start 05/13/17 at 12:00 DAYANARA SHABAZZ May 16, 2017 11:50
--- NOTE | 2017-05-16 12:06 | PN ---
Date/Time of Note Date/Time of Note DATE: 05/16/17 TIME: 11:56 Assessment/Plan VTE Prophylaxis VTE Prophylaxis Intervention: contraindicated Lines/Catheters IV [facility]from [facility] Urinary Cath still in place: No Assessment/Plan Assessment/Plan 1. CAD s/p stenting in 2005 and CABG 05/09/17 - Patient doing well post op and CT out - CT surgery on board and recommendations appreciated - Cardiology on board and consultation appreciated. Will continue current medications. Still slightly tachycardic and will continue to monitor. 2. 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 use parvin 7 in case of bleed s/p CABG. - PTT Mixing study showed correction - No av bleeding appreciated at this time and will continue to monitor 3. shortness of breath 2/2 pleural effusions- improved - No longer requiring supplemental O2 -repeat CXR showed improvement 4. pleural effusions -likely 2/2 CABG - improved 5. Hypothyroidism - TSH within nl limits - continue home dose of levothyroxine for now 6. Disposition - will touch base with cardiology and CT surgery on d/c planning - still tachycardic Subjective 24 Hr Interval Summary Free Text/Dictation Patient resting comfortably and denies any new complaints. No acute overnight events. Had not been needing to use supplemental O2 and saturating well. Exam/Review of Systems Vital Signs Vitals Vital Signs Date Time Temp Pulse Resp B/P Pulse Ox O2 Delivery O2 Flow Rate FiO2 05/16/17 11:50 97.0 98 18 101/59 100 05/15/17 08:00 Nasal Cannula 1.0 05/13/17 17:04 32 Intake and Output 05/15/17 05/15/17 05/16/17 15:00 23:00 07:00 Intake Total 650 ml 450 ml Balance 650 ml 450 ml Exam Constitutional: alert, oriented, no acute distress Head: atraumatic, normocephalic Eyes: EOMI, PERRL, nl sclera Neck: non-tender, supple Respiratory: coarse to auscultation bilaterally. no wheezes Cardiovascular: borderline tachy, regular rhythm, no obvious murmurs, midline incision. CDI. Gastrointestinal: bowel sounds, non distended Musculoskeletal: nl extremities to inspection Extremities: normal pulses, No clubbing, No cyanosis, Neurological: SALES REPRESENTATIVE SUPERVISOR II-XII intact, nl mental status, nl speech Skin: nl turgor Results Result Diagram: 05/15/17 0536 05/15/17 0536 Results 24 hrs Laboratory Tests Test 05/15/17 11:59 05/15/17 20:54 05/16/17 08:08 05/16/17 09:02 Bedside Glucose 119 165 114 Lab Scanned Report REFERENCE LAB Medications Medications Current Medications Al Hydrox/Mg Hydrox/Simethicone (Mag-Al Plus) 30 ml Q4H PRN PO GASTROINTESTINAL UPSET; Start 05/04/17 at 14:30 Ondansetron HCl (Zofran Inj) 4 mg Q4H PRN IV NAUSEA AND/OR VOMITING; Start at 14:30 Atorvastatin Calcium (Lipitor) 80 mg QHS PO Last administered on 05/15/17 20: 55; Admin Dose 80 MG; Start 05/04/17 at 21:00 Clopidogrel Bisulfate (plaVIX) 75 mg DAILY PO Last administered on 05/16/17 08:37; Admin Dose 75 MG; Start 05/05/17 at 09:00 Gabapentin (Neurontin) 300 mg BID PO Last administered on 05/16/17 08:37; Admin Dose 300 MG; Start 05/04/17 at 21:00 Isosorbide Mononitrate (Imdur) 30 mg DAILY PO Last administered on 05/16/17 08:37; Admin Dose 30 MG; Start 05/05/17 at 09:00 Fish Oil (Fish Oil) 2,000 mg BID PO Last administered on 05/16/17 08:36; Admin Dose 2,000 MG; Start 05/04/17 at 21:00 Nitroglycerin (Nitroglycerin (Sl Tab) 0.4 Mg) 1 tab Q5M PRN SL CHEST PAIN; Start 05/04/17 at 15:30 Docusate Sodium (Colace) 100 mg Q12H PRN PO CONSTIPATION; Start 05/04/17 at 15 :30 Magnesium Hydroxide (Milk Of Mag) 30 ml DAILY PRN PO CONSTIPATION; Start 05/04 at 15:30 Lisinopril (Zestril) 5 mg DAILY PO Last administered on 05/16/17 08:38; Admin Dose 5 MG; Start 05/09/17 at 09:00 Hydromorphone HCl (Dilaudid) 0.2 mg Q15M PRN IV PAIN LEVEL 1-5; Start at 15:00 Hydromorphone HCl (Dilaudid) 0.4 mg Q15M PRN IV PAIN LEVEL 6-10 Last administered on 05/11/17 21:43; Admin Dose 0.4 MG; Start 05/09/17 at 15:00 Morphine Sulfate (morphine) 2 mg Q2 PRN IV PAIN LEVEL 1-5 Last administered on 05/10/17 07:09; Admin Dose 2 MG; Start 05/09/17 at 15:00 Morphine Sulfate (morphine) 4 mg Q2 PRN IV PAIN LEVEL 6-10; Start 05/09/17 at 15:00 Midazolam HCl (Versed) 1 mg Q2H PRN IV AGITATION; Start 05/09/17 at 15:00 Acetaminophen (Tylenol Tab) 650 mg Q3H PRN PO ELEVATED TEMPERATURE Last administered on 05/14/17 13:40; Admin Dose 650 MG; Start 05/09/17 at 15:00 Acetaminophen (Tylenol Supp) 650 mg Q3H PRN [place] ELEVATED TEMPERATURE Last administered on 05/09/17 18:46; Admin Dose 650 MG; Start 05/09/17 at 15:00 Miscellaneous Information 1 ea NOTE XX ; Start 05/11/17 at 13:00 Famotidine (Pepcid) 20 mg BID@08,20 PO Last administered on 05/16/17 08:37; Admin Dose 20 MG; Start 05/12/17 at 08:00 Atenolol (Tenormin) 25 mg BID PO Last administered on 05/16/17 08:38; Admin Dose 25 MG; Start 05/12/17 at 21:00 Zolpidem Tartrate (Ambien) 10 mg HS PRN PO INSOMNIA Last administered on 22:21; Admin Dose 10 MG; Start 05/12/17 at 22:30 Bisacodyl (Dulcolax) 10 mg DAILY PRN PO CONSTIPATION Last administered on 05/13 12:25; Admin Dose 10 MG; Start 05/13/17 at 12:00 TIERRA MURILLO MD May 16, 2017 12:06
--- NOTE | 2017-05-16 17:28 | DS ---
Date/Time of Note Date/Time of Note DATE: 05/16/17 TIME: 17:28 Discharge Summary Admission/Discharge Info Admit Date/Time May 04, 2017 at 15:44 Discharge Date/Time 05/16/17 Discharge Diagnosis 1. CAD s/p stenting in 2005 and s/p CABG 05/09/17 2. 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 shortness of breath 2/2 pleural effusions- resolved 4. pleural effusions- resolved 5. Hypothyroidism Patient Condition: Good Consults Cardiology- Dr. Kim CT Surgery- Dr. Guzman Hematology- Dr. Goddard Procedures CABG Hx of Present Illness 56 yo M with PMH CAD and hypothyroidism was sent to Dr. Kim office for preoperative clearance for colonoscopy given past history of CAD with stenting in 2005. Patient was seen this am and INR was 1.[address] Kim proceeded with diagnostic catheterization. Patient was found to have diffuse multivessel disease with needs for CABG in the future. Patients repeat lab work showed increase of INR to 2.7 and PCI was aborted. Official film printer was used to communicate with patient in [facility], however, patient was unclear about his past history. He was aware that he has an abnormality of his blood but unsure what kind. After discussion with Dr. Kim, patient has factor VII deficiency and was supposed to have CABG in the past but due to coagulopathy was never performed. Patient is currently on the schedule for left heart catheterization with stenting if INR improves. Patient denies any chest pain, palpitations, shortness of breath, nausea, vomiting, or abdominal issues. Hospital Course Patient was admitted and Hematology was consulted for advise on how to proceed with procedures in light of patient coagulopathy. Studies were performed including factor testing and mixing studies due to patient history of factor VII deficiency. CT surgery was consulted to assess if patient a candidate for CABG due to multivessel disease. Plans were in place for Novoseven prior to surgery and patient proceeded with 4 vessel CABG (VALDEZ- LAD, SVG-PDA/diag/OM) on 05/09/17. Patient had no complications following surgery and was monitored in ICU setting. Patient did not experience any acute bleeding. Patient was extubated and chest tubes removed. Patient was needing oxygen supplementation to keep saturations about 90%. Patients condition improved and was no longer needing nasal cannula. Patient was discharged home in good condition with instructions to follow up with CT surgery and Cardiology. Home Meds Active Scripts Nitroglycerin* (Nitrostat*) 0.4 Mg Tab.subl, 1 TAB SL Q5M Y for CHEST PAIN for 30 Days, #90 TAB Prov:TIERRA MURILLO MD 05/16/17 Lisinopril* (Lisinopril*) 5 Mg Tablet, 5 MG PO DAILY for 30 Days, #30 TAB Prov:TIERRA MURILLO MD 05/16/17 Atenolol* (Atenolol*) 25 Mg Tablet, 25 MG PO BID for 30 Days, #60 TAB Prov:TIERRA MURILLO MD 05/16/17 Reported Medications Gabapentin* (Gabapentin*) 300 Mg Capsule, 300 MG PO BID, #60 CAP 05/04/17 [place]u-3 Acid Ethyl Esters (Lovaza) 1 Gm Capsule, 2 GM PO BID, CAP 05/04/17 Omeprazole* (Omeprazole*) 40 Mg Capsule.dr, 40 MG PO DAILY, #30 CAP 05/04/17 Levothyroxine Sodium* (Levoxyl*) 100 Mcg Tablet, 100 MCG PO BEFORE BREAKFAST, # 30 TAB 05/04/17 Atorvastatin* (Atorvastatin*) 80 Mg Tablet, 80 MG PO QHS, #30 TAB 05/04/17 Isosorbide Mononitrate* (Isosorbide Mononitrate*) 30 Mg Tab.er.24h, 30 MG PO DAILY, TAB 05/04/17 Clopidogrel Bisulfate (Plavix) 75 Mg Tablet, 75 MG PO DAILY 08/20/12 Discontinued Reported Medications Lisinopril* (Lisinopril*) 20 Mg Tablet, 20 MG PO DAILY, #30 TAB 05/04/17 Metoprolol Tartrate (LOPRESSOR) 50 Mg Tab, 50 MG PO DAILY 08/20/12 Follow-up Plan 1. Follow up with Cardiology in 1 week 2. Follow up with CT surgery in 1 week 3. Follow up with your primary care physician in 1 week 4. Continue medications as prescribed. Changes to your previous medications include: decrease dose of Lisinopril to 5mg and stop the Metoprolol 5. If you are experiencing any chest pain, loss of consciousness, bleeding, shortness of breath, or other concerning symptoms, return to the ED 6. Gradually increase your activity as tolerated Primary Care Provider Not On Staff Doctor Time spent on discharge: > 30 minutes Pending Labs Laboratory Tests Test 05/15/17 20:54 05/16/17 08:08 05/16/17 09:02 05/16/17 12:13 Bedside Glucose 165mg/dL (70-220) 114mg/dL (70-220) 133mg/dL (70-220) Lab Scanned Report REFERENCE [id number] TIERRA MURILLO MD May 16, 2017 17:28
[2017-05-16] MEDS ORDERED: LISI-313 PO (17:30)
[2017-05-16] MEDS ORDERED: ATEN-51 PO (17:30)
[2017-05-16] MEDS ORDERED: NIT4 SL (17:30)
--- NOTE | 2017-05-16 17:35 | PDOCDIS ---
Discharge Instructions DIAGNOSIS Discharge Diagnosis 1. CAD s/p stenting in 2005 and s/p CABG 05/09/17 2. 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 shortness of breath 2/2 pleural effusions- resolved 4. pleural effusions- resolved 5. Hypothyroidism CONDITION Patient Condition: Good HOME CARE INSTRUCTIONS: Diet Instructions: Low Fat /CholesterolSpecial Diet: CARDIAC ACTIVITY: Activity Restrictions: Slowly Increase Activity Avoid heavy lifting Cardiac Rehab FOLLOW UP/APPOINTMENTS Follow-up Plan 1. Follow up with Cardiology in 1 week 2. Follow up with CT surgery in 1 week 3. Follow up with your primary care physician in 1 week 4. Continue medications as prescribed. Changes to your previous medications include: decrease dose of Lisinopril to 5mg and stop the Metoprolol 5. If you are experiencing any chest pain, loss of consciousness, bleeding, shortness of breath, or other concerning symptoms, return to the ED 6. Gradually increase your activity as tolerated REFERRALS Other Referrals Bar Kim MD Specialty: Cardiology Office Address [address] [place] [address] Office Arnoldo Guzman MD Specialty: Cardiothoracic Surgery Office Address [address] [place] [address]. [address] [place] [address] Office TIERRA MURILLO MD May 16, 2017 17:35
== END 2017-05-16 18:50 | disposition home or self-care (01) | DRG 234 ==
LOC: SDS 09:46 → REC 15:44 → TEL 20:53 → ICU 05-09 06:42 → TEL 05-12 16:47
PROVIDERS: ADMIT Internal Medicine; ATTEND Internal Medicine
PROC: 4A023N7 Measurement of Cardiac Sampling and Pressure, Left Heart, Percutaneous Approach (ICD-10-PCS; 2017-05-05)
PROC: B211YZZ Fluoroscopy of Multiple Coronary Arteries using Other Contrast (ICD-10-PCS; 2017-05-05)
PROC: B215YZZ Fluoroscopy of Left Heart using Other Contrast (ICD-10-PCS; 2017-05-05)
PROC: 02100Z9 Bypass Coronary Artery, One Artery from Left Internal Mammary, Open Approach (ICD-10-PCS; 2017-05-09)
PROC: 06BQ4ZZ Excision of Left Saphenous Vein, Percutaneous Endoscopic Approach (ICD-10-PCS; 2017-05-09)
PROC: 5A1221Z Performance of Cardiac Output, Continuous (ICD-10-PCS; 2017-05-09)
PROC: 021209W Bypass Coronary Artery, Three Arteries from Aorta with Autologous Venous Tissue, Open Approach (ICD-10-PCS; principal; 2017-05-09 07:30)
DX: I25.110 Atherosclerotic heart disease of native coronary artery with unstable angina pectoris (principal); D68.2 Hereditary deficiency of other clotting factors; J90 Pleural effusion, not elsewhere classified; I10 Essential (primary) hypertension; E03.9 Hypothyroidism, unspecified; E78.5 Hyperlipidemia, unspecified; E11.9 Type 2 diabetes mellitus without complications; Z95.5 Presence of coronary angioplasty implant and graft
CPT/HCPCS: 36430; 36592; 36600; 71010; 80048; 80053; 80061; 80069; 80076; 82803; 82962; 83036; 83735; 83880; 84100; 84132; 84443; 85025; 85210; 85220; 85230; 85240; 85250; 85260; 85270; 85280; 85335; 85610; 85730; 86850; 86900; 86901; 86920; 86945; 87081; 90686; 93005; 93312; 93325; 93458; 93880; 94002; 94770; 97110; 97116; 97163; 97530; J1940; C1887; J0171; J0360; J0690; J1265; J1644; J1815; J2001; J2250; J2270; J2370; J2440; J2720; J3010; J3370; J3475; J3480; J7070; J7189; P9035; P9047; P9059; Q9967

== ENCOUNTER 2017-06-30 17:45 | Emergency (ER) | payer OTHER ==
[~2017-06-30] VITALS: Ht 167.6 cm; Wt 70.9 kg
[~2017-06-30 17:45] MED LIST changes: +ATEN-51 PO; +ATOR80TA75 PO; -DIAZEPAM 5 MG TAB PO SCH; -DIPHENHYDRAMINE 50 MG CAP PO SCH; -FAMOTIDINE 20 MG TAB PO SCH; -FENO160T13 PO; +GABA300C16 PO; -HYDROCORTISONE 2.5%; +ISOS30TA5 PO; +LEVO100T82 PO; -LEVO88TA PO; +LISI-313 PO; -LISI10TA2 PO; -MELO-210 PO; -METO-429 PO; +NITR0.4T39 SL; +OMEG1CAP2 PO; -OMEP20TA42 PO; +OMEP40CA6 PO; -SERT50TA6 PO; -SIMV40TA3 PO; -SOD CHLORIDE 0.45% 1,000 ML IV SCH
[2017-06-30 17:53] VITALS: Ht 167.6 cm; Wt 70.9 kg
--- NOTE | 2017-06-30 20:50 | ERD ---
ER Documentation Chief Complaint Chief Complaint left lower sternal/abdominal pain. hx: sternotomy 04/2017, recent PNA HPI 56-year-old man complains of left anterior costal margin pain with inspiration 2 weeks. He states the pain is sharp nonexertional nonradiating. He is status post CABG about a month and a half ago and a CT scan of the chest performed a few days ago revealed mild to moderate left pleural effusion. He denies abdominal pain, no headache or blurry vision, no exertional chest pain, no cough , no fevers or chills, no vomiting or diarrhea. Patient has been using ibuprofen at home with some relief, and just finished a round of antibiotics. ROS All systems reviewed and are negative except as per history of present illness. Medications Home Meds Active Scripts Oxycodone HCl/Acetaminophen (Percocet 5-325 mg Tablet) 1 Each Tablet, 1 EACH PO TID for PAIN, #12 TAB Prov:JESUSITA VAN MD 06/30/17 Nitroglycerin* (Nitrostat*) 0.4 Mg Tab.subl, 1 TAB SL Q5M Y for CHEST PAIN for 30 Days, #90 TAB Prov:TIERRA MURILLO MD 05/16/17 Reported Medications Clotrimazole* (Clotrimazole* AF) 1% - 30 Gm Cream.gm., 1 APPLIC TOP DAILY, TUB 06/30/17 Ibuprofen* (Ibuprofen*) 400 Mg Tablet, 400 MG PO BID Y for PAIN, TAB 06/30/17 Atenolol* (Atenolol*) 50 Mg Tablet, 50 MG PO DAILY, #30 TAB 06/30/17 Gabapentin* (Gabapentin*) 300 Mg Capsule, 300 MG PO DAILY, #60 CAP 05/04/17 [place]-3 Acid Ethyl Esters (Lovaza) 1 Gm Capsule, 2 GM PO BID, CAP 05/04/17 Omeprazole* (Omeprazole*) 40 Mg Capsule.dr, 40 MG PO DAILY, #30 CAP 05/04/17 Levothyroxine Sodium* (Levoxyl*) 100 Mcg Tablet, 100 MCG PO BEFORE BREAKFAST, # 30 TAB 05/04/17 Atorvastatin* (Atorvastatin*) 80 Mg Tablet, 80 MG PO QHS, #30 TAB 05/04/17 Isosorbide Mononitrate* (Isosorbide Mononitrate*) 30 Mg Tab.er.24h, 30 MG PO DAILY, TAB 05/04/17 Clopidogrel Bisulfate (Plavix) 75 Mg Tablet, 75 MG PO DAILY 08/20/12 Discontinued Scripts Lisinopril* (Lisinopril*) 5 Mg Tablet, 5 MG PO DAILY for 30 Days, #30 TAB Prov:TIERRA MURILLO MD 05/16/17 Atenolol* (Atenolol*) 25 Mg Tablet, 25 MG PO BID for 30 Days, #60 TAB Prov:TIERRA MRUILLO MD 05/16/17 Allergies Allergies: Coded Allergies: No Known Allergy (Unverified , 06/30/17) PMhx/Soc CAD status post PCI and coronary artery stenting, CABG, factor VII deficiency, hypothyroidism, obesity, dyslipidemia, hypertension History of Surgery: Yes (heart cath with stent placement x3) Anesthesia Reaction: No Hx Neurological Disorder: Yes (depression) Hx Respiratory Disorders: No Hx Cardiac Disorders: Yes (heart attack 2006) Hx Psychiatric Problems: No Hx Miscellaneous Medical Probl: Yes (OVERWEIGHT) Hx Alcohol Use: No Hx Substance Use: No Hx Tobacco Use: No FmHx Family History: No diabetes Physical Exam Vitals Vital Signs Date Time Temp Pulse Resp B/P Pulse Ox O2 Delivery O2 Flow Rate FiO2 06/30/17 22:56 80 18 112/85 98 Room Air 06/30/17 21:17 98.1 84 18 122/85 100 Room Air 06/30/17 17:53 98.8 96 22 157/81 99 Physical Exam GENERAL: Well-developed, well-nourished, well-hydrated, in no apparent distress , looks nontoxic in appearance HEENT: Moist mucous membranes, pink conjunctiva, no cervical spine tenderness or step-off deformities, no goiter, no jaundice or icterus, extraocular movements intact without pain. No submandibular induration, and no pharyngeal erythema NEURO: Alert and oriented 3, cranial nerves II through XII intact bilaterally, pupils equal round reactive to light, no focal deficits or facial asymmetry, sensation intact distally Strength 5/5 in upper and lower extremities bilaterally CARDIAC: Regular rate and rhythm, no murmurs rubs or gallops LUNGS: Clear bilaterally no wheezing crackles or stridor ABDOMEN: Soft nontender, no guarding, no rigidity, no rebound, no psoas sign no obturator sign. Normoactive bowel sounds SKIN: Warm and dry to touch, no abrasions, contusions, or hematomas, no lacerations, no ecchymosis, no target lesions, and without ulcers EXTREMITIES: No clubbing cyanosis or edema, calves are bilaterally symmetrical, no Homans sign, no popliteal cord sign. Distal pulses equal and bilateral PSYCH: Normal affect without agitation or irritability Result Diagram: 06/30/17204906/30/172049 Results 24 hrs Laboratory Tests Test 06/30/17 20:50 White Blood Count 10.010^3/ul Red Blood Count 5.1510^6/ul Hemoglobin 13.3g/dl Hematocrit 42.2% Mean Corpuscular Volume 81.9fl Mean Corpuscular Hemoglobin 25.8pg Mean Corpuscular Hemoglobin Concent 31.5g/dl Red Cell Distribution Width 13.5% Platelet Count 38785^3/UL Mean Platelet Volume 11.9fl Neutrophils % 76.8% Lymphocytes % 15.2% Monocytes % 5.8% Eosinophils % 1.4% Basophils % 0.4% Nucleated Red Blood Cells % 0.0/100WBC Neutrophils # 7.710^3/ul Lymphocytes # 1.510^3/ul Monocytes # 0.610^3/ul Eosinophils # 0.110^3/ul Basophils # 0.010^3/ul Nucleated Red Blood Cells # 0.010^3/ul Sodium Level 141mmol/L Potassium Level 4.1mmol/L Chloride Level 102mmol/L Carbon Dioxide Level 26mmol/L Anion Gap 17 Blood Urea Nitrogen 13mg/dl Creatinine 1.04mg/dl Glucose Level 143mg/dl Calcium Level 9.4mg/dl Total Bilirubin 0.3mg/dl Direct Bilirubin 0.00mg/dl Indirect Bilirubin 0.3mg/dl Aspartate Amino Transf (AST/SGOT) 21IU/L Alanine Aminotransferase (ALT/SGPT) 43IU/L Alkaline Phosphatase 95IU/L Troponin I < 0.012ng/ml Total Protein 7.3g/dl Albumin 3.8g/dl Globulin 3.50g/dl Albumin/Globulin Ratio 1.08 Lipase 154U/L Current Medications Medications (Trade) Dose Ordered Sig/Judith Route PRN Reason Start Time Stop Time Status Last Admin Dose Admin Ketorolac Tromethamine (Toradol) 15 mg ONCE STAT IV 06/30/17 20:58 06/30/17 21:00 DC 06/30/17 21:14 Procedures/MDM IV line was established patient was placed on director of cardiac cath lab rhythm strip revealed a sinus rhythm at about 80 bpm with upright P and T waves. Patient was afebrile EKG performed, read by me: 86 bpm, normal sinus rhythm, normal axis, no acute ST segment changes, narrow QRS complex, with good R-wave progression in precordial leads. One AP view of the chest performed, read by me reveals no acute infiltrates, large left pleural effusion, normal mediastinum. Otherwise unremarkable chest x- ray. I administered Toradol 15 mg IV 1 for pain control. Seen electrolytes were normal, liver function tests were normal, troponin was negative. Patient's vital signs remained normal including oxygen saturation on room air. Patient states his pain improved and he has no complaints of shortness of breath. I feel the patient can be managed as an outpatient with analgesics he will continue ibuprofen and I added Percocet as needed for breakthrough pain. Differential diagnoses considered, included but not limited to acute coronary syndrome, pulmonary embolism, aortic dissection, abdominal aortic aneurysm, sepsis, stroke, meningitis, encephalitis, pneumonia, appendicitis, cholecystitis , bowel obstruction, pyelonephritis, nephrolithiasis, cystitis, as well as metabolic, hematologic, and electrolyte abnormalities. As well as abscess, cellulitis, fractures, and dislocations. Patient feels much better at this time, and vital signs are normal, symptoms have improved. I did give strict instructions to return to the ED if symptoms continue or worsen, patient will otherwise follow-up with primary care physician. Patient understood instructions and agreed to plan. Disclaimer: Inadvertent spelling and grammatical errors are likely due to EHR/ dictation software use and do not reflect on the overall quality of patient care. Also, please note that the electronic time recorded on this note does not necessarily reflect the actual time of the patient encounter. Departure Diagnosis: Primary Impression: Pleural effusion Condition: Good JESUSITA VAN MD Jun 30, 2017 20:50
[2017-06-30] MEDS ORDERED: KETOROLAC 15 MG INJ IV STA (20:58)
[2017-06-30 21:17] VITALS: TEMP 98.1
--- NOTE | 2017-06-30 21:40 | RADRPT ---
PROCEDURE: XR Chest. CLINICAL INDICATION: Abdominal Pain TECHNIQUE: Frontal chest x-ray was obtained. COMPARISON: Chest x-ray August 20, 2012 FINDINGS: The patient is post CABG. Heart is not enlarged. Mediastinum is not widened. No hilar masses seen. T here is left basilar atelectasis with small effusion. There is no pneumothorax. IMPRESSION: Left basilar atelectasis with small effusion . .Abilio Lopez MD, MD Date Time Electronically viewed and signed by .Abilio Lopez MD, MD on 06/30/2017 21:40 .A/
[2017-06-30] MEDS ORDERED: ATEN50TA PO (21:49)
[2017-06-30] MEDS ORDERED: IBUP400T22 PO (21:49)
[2017-06-30] MEDS ORDERED: CLOT30CR24 TOP (21:50)
[2017-06-30 21:51] LABS: BASOPHILS % 0.4 % (0.0-2.0); EOSINOPHILS # 0.1 10^3/ul (0.0-0.5); EOSINOPHILS % 1.4 % (0.0-7.0); HEMATOCRIT 42.2 % (42.0-52.0); HEMOGLOBIN 13.3 g/dl (14.0-18.0); LYMPHOCYTES # 1.5 10^3/ul (0.8-2.9); LYMPHOCYTES % 15.2 % (15.0-51.0); MEAN CORPUSCULAR HEMOGLOBIN 25.8 pg (29.0-33.0); MEAN CORPUSCULAR HGB CONC 31.5 g/dl (32.0-37.0); MEAN CORPUSCULAR VOLUME 81.9 fl (82.0-101.0); MEAN PLATELET VOLUME 11.9 fl (7.4-10.4); MONOCYTE # 0.6 10^3/ul (0.3-0.9); MONOCYTES % 5.8 % (0.0-11.0); NEUTROPHIL # 7.7 10^3/ul (1.6-7.5); NEUTROPHILS % 76.8 % (39.0-77.0); PLATELET COUNT 323 10^3/UL (140-415); RED BLOOD COUNT 5.15 10^6/ul (4.70-6.10); RED CELL DISTRIBUTION WIDTH 13.5 % (11.5-14.5)
[2017-06-30 22:15] LABS: ALANINE AMINOTRANSFERASE 43 IU/L (13-69); ALBUMIN 3.8 g/dl (3.3-4.9); ALBUMIN/GLOBULIN RATIO 1.08; ALKALINE PHOSPHATASE 95 IU/L (42-121); ANION GAP 17 (8-16); ASPARTATE AMINO TRANSFERASE 21 IU/L (15-46); BILIRUBIN,INDIRECT 0.3 mg/dl (0-1.1); BILIRUBIN,TOTAL 0.3 mg/dl (0.2-1.3); BLOOD UREA NITROGEN 13 mg/dl (7-20); CALCIUM 9.4 mg/dl (8.4-10.2); CARBON DIOXIDE 26 mmol/L (21-31); CHLORIDE 102 mmol/L (97-110); CREATININE 1.04 mg/dl (0.61-1.24); GLUCOSE 143 mg/dl (70-220); POTASSIUM 4.1 mmol/L (3.5-5.1); SODIUM 141 mmol/L (135-144); TOTAL PROTEIN 7.3 g/dl (6.1-8.1)
[2017-06-30 22:35] LABS: TROPONIN-I < 0.012 ng/ml (0.00-0.12)
[2017-06-30] MEDS ORDERED: OXYC-279 PO (22:54)
[2017-06-30 22:56] VITALS: BP 112/85; PULSE 80; RESP 18
== END 2017-06-30 23:06 | disposition home or self-care (01) ==
LOC: E/R 17:45
DX: J90 Pleural effusion, not elsewhere classified (principal); I25.10 Atherosclerotic heart disease of native coronary artery without angina pectoris; E03.9 Hypothyroidism, unspecified; I10 Essential (primary) hypertension; E66.9 Obesity, unspecified; Z98.61 Coronary angioplasty status
CPT/HCPCS: 36415; 71010; 80053; 83690; 84484; 85025; 93005; 96374; J1885; Z7502

== ENCOUNTER 2017-09-14 19:42 | Emergency (ER) | END 2017-09-14 23:02 | disposition home or self-care (01) ==

== ENCOUNTER 2017-12-05 13:59 | Observation (INO) | END 2017-12-06 14:13 | disposition home or self-care (01) ==